=== PATIENT | male | born 1955 | race Caucasian/White ===

== ENCOUNTER 2017-01-03 08:26 | Inpatient (IN) ==
--- NOTE | 2017-01-03 08:30 | Emergency Department Note ---
Disposition Clinical Impression: Overdose, Hyperglycemia, Suicidal ideation, Acute kidney injury Disposition: Admitted As Inpatient Condition: Fair General Adult HPI - General Chief complaint: ED Overdose Stated complaint: Overdose Time Seen by Provider: 01/03/17 08:28 - Related Data Home Medications Medication Instructions Recorded Confirmed Aspirin [Lo-Dose Aspirin EC] 81 mg PO DAILY 01/03/17 01/03/17 Multivitamin [One Daily Essential] 1 tab PO DAILY 01/03/17 01/03/17 Allergies Allergy/AdvReac Type Severity Reaction Status Date / Time esomeprazole [From Nexium] Allergy Rash Verified 01/03/17 09:30 Cyclobenzaprine AdvReac Hypotension Verified 01/03/17 09:30 [From Flexeril] Course Vital Signs Temperature 97.9 F 01/03/17 08:29 Pulse Rate 121 01/03/17 08:29 Respiratory Rate 16 01/03/17 08:29 Blood Pressure 123/77 01/03/17 08:29 O2 Sat by Pulse Oximetry 95 01/03/17 08:29 Temperature 98.3 F 01/03/17 17:30 Pulse Rate 109 01/03/17 17:30 Respiratory Rate 16 01/03/17 17:30 Blood Pressure 135/92 01/03/17 17:30 O2 Sat by Pulse Oximetry 94 01/03/17 17:30 Oxygen Delivery Oxygen Delivery Room Air Medical Decision Making - Lab Data Result diagrams: 01/03/17 08:47 01/03/17 08:48 Lab Results 01/03/17 01/03/17 01/03/17 Range/Units 08:47 08:47 08:48 WBC 12.9 H (4.3-11.1) K/mcL RBC 6.26 H (4.19-5.50) M/mcL Hgb 15.3 (12.9-16.9) g/dL Hct 47.1 (37.5-50.1) % MCV 75.2 L (83.0-100.0) fL MCH 24.4 L (28.0-33.3) pg MCHC 32.5 (31.6-35.5) g/dL RDW 14.8 H (11.5-14.5) % Plt Count 312 (140-400) K/mcL MPV 8.7 L (9.4-12.4) fL Immature Gran % 0.5 (0-4) % Seg Neutrophils % 79.9 % Lymphocytes % 11.8 % Monocytes % 7.3 % Eosinophils % 0.2 % Basophils % 0.3 % Neutrophils # 10.3 H (1.6-8.9) K/mcL Lymphocytes # 1.5 (0.6-4.6) K/mcL Monocytes # 0.9 (0.0-1.3) K/mcL Eosinophils # 0.0 (0.0-0.6) K/mcL Basophils # 0.0 (0.0-0.2) K/mcL VBG pH (7.32-7.42) pH Units VBG pCO2 (41-51) mmHg VBG pO2 (25-40) mmHg VBG HCO3 (21-27) mEq/L Sodium 131 L (136-145) mEq/L Potassium 3.6 (3.5-4.5) mEq/L Chloride 97 L (98-109) mEq/L Carbon Dioxide 17 L (19-29) mEq/L BUN 11 (8-26) mg/dL Creatinine 1.37 H (0.72-1.25) mg/dL Est GFR ( Amer) > 60 (> 60) Est GFR (Non-Af Amer) 52 L (> 60) BUN/Creatinine Ratio 8 (6-26) Glucose 428 H (70-99) mg/dL Est Mean Plasma Glucose 292 mg/dl Hemoglobin A1c 11.8 H ( - 5.6) % Calculated Osmolality 290 (280-300) Calcium 9.4 (8.6-10.8) mg/dL Total Bilirubin 1.1 (0.2-1.2) mg/dL Direct Bilirubin 0.5 (0.0-0.5) mg/dL Indirect Bilirubin 0.6 (0.0-1.2) mg/dL AST 43 H (5-34) Units/L ALT 60 H (0-55) Units/L Alkaline Phosphatase 98 (38-126) Units/L Serum Total Protein 7.7 (6.0-8.3) g/dL Albumin 3.5 (3.5-5.0) g/dL Globulin 4.2 H (2.4-3.5) g/dL Albumin/Globulin Ratio 0.8 L (1.1-2.2) Beta-Hydroxybutyric Acd (0.02-0.27) mmol/L Salicylates < 5.0 L (15-30) mg/dL Urine Opiates Screen (Lpvwzm=459) ng/mL Acetaminophen < 1.0 L (10-30) mcg/mL Ur Barbiturates Screen (Riujlb=204) ng/mL Ur Phencyclidine Scrn (Cutoff=25) ng/mL Ur Amphetamines Screen (Qziffa=9706) ng/mL U Benzodiazepines Scrn (Dlcakj=616) ng/mL Urine Cocaine Screen (Cutoff= 300) ng/mL U Marijuana (THC) Screen (Cutoff = 50) ng/mL Ethyl Alcohol < 10 (0-10) mg/dL 01/03/17 01/03/17 01/03/17 Range/Units 09:23 09:27 09:27 WBC (4.3-11.1) K/mcL RBC (4.19-5.50) M/mcL Hgb (12.9-16.9) g/dL Hct (37.5-50.1) % MCV (83.0-100.0) fL MCH (28.0-33.3) pg MCHC (31.6-35.5) g/dL RDW (11.5-14.5) % Plt Count (140-400) K/mcL MPV (9.4-12.4) fL Immature Gran % (0-4) % Seg Neutrophils % % Lymphocytes % % Monocytes % % Eosinophils % % Basophils % % Neutrophils # (1.6-8.9) K/mcL Lymphocytes # (0.6-4.6) K/mcL Monocytes # (0.0-1.3) K/mcL Eosinophils # (0.0-0.6) K/mcL Basophils # (0.0-0.2) K/mcL VBG pH 7.34 (7.32-7.42) pH Units VBG pCO2 35 L (41-51) mmHg VBG pO2 38 (25-40) mmHg VBG HCO3 18.9 L (21-27) mEq/L Sodium (136-145) mEq/L Potassium (3.5-4.5) mEq/L Chloride (98-109) mEq/L Carbon Dioxide (19-29) mEq/L BUN (8-26) mg/dL Creatinine (0.72-1.25) mg/dL Est GFR ( Amer) (> 60) Est GFR (Non-Af Amer) (> 60) BUN/Creatinine Ratio (6-26) Glucose (70-99) mg/dL Est Mean Plasma Glucose mg/dl Hemoglobin A1c ( - 5.6) % Calculated Osmolality (280-300) Calcium (8.6-10.8) mg/dL Total Bilirubin (0.2-1.2) mg/dL Direct Bilirubin (0.0-0.5) mg/dL Indirect Bilirubin (0.0-1.2) mg/dL AST (5-34) Units/L ALT (0-55) Units/L Alkaline Phosphatase (38-126) Units/L Serum Total Protein (6.0-8.3) g/dL Albumin (3.5-5.0) g/dL Globulin (2.4-3.5) g/dL Albumin/Globulin Ratio (1.1-2.2) Beta-Hydroxybutyric Acd 1.17 H (0.02-0.27) mmol/L Salicylates (15-30) mg/dL Urine Opiates Screen Negative (Fsatap=805) ng/mL Acetaminophen (10-30) mcg/mL Ur Barbiturates Screen Negative (Hjzavj=107) ng/mL Ur Phencyclidine Scrn Negative (Cutoff=25) ng/mL Ur Amphetamines Screen Negative (Eddmun=2790) ng/mL U Benzodiazepines Scrn Negative (Otjken=270) ng/mL Urine Cocaine Screen Negative (Cutoff= 300) ng/mL U Marijuana (THC) Screen Negative (Cutoff = 50) ng/mL Ethyl Alcohol (0-10) mg/dL Attestation Statement - Attestation Attestation: I examined this patient and my medical decision-making was reviewed with the ALL AROUND GEAR MACHINE OPERATOR/PA/Advanced Practice Nurse/Resident Physician. I agree with the documented findings, disposition and treatment plan as described except to the extent set forth below. Cvfw-qj-rati time provided Patient presents via EMS with suicidal ideation. Several hours ago he swallowed an unknown quantity of trazodone and possibly 30 tablets of Plavix. This was done in a suicide attempt. He states prior to this he has not taken any medications for a year. He appears sleepy but he is awake and able to answer questions appropriately. He is a guarded historian
--- NOTE | 2017-01-03 08:42 | Emergency Department Note ---
Overdose - Medical Records Medical records reviewed: Yes I reviewed the patient's medical records. - Lab Data Lab results reviewed: Yes I reviewed the patient's lab results. Result diagrams: 01/03/17 08:47 01/03/17 08:48 Lab Results 01/03/17 01/03/17 01/03/17 Range/Units 08:47 08:48 09:23 WBC 12.9 H (4.3-11.1) K/mcL RBC 6.26 H (4.19-5.50) M/mcL Hgb 15.3 (12.9-16.9) g/dL Hct 47.1 (37.5-50.1) % MCV 75.2 L (83.0-100.0) fL MCH 24.4 L (28.0-33.3) pg MCHC 32.5 (31.6-35.5) g/dL RDW 14.8 H (11.5-14.5) % Plt Count 312 (140-400) K/mcL MPV 8.7 L (9.4-12.4) fL Immature Gran % 0.5 (0-4) % Seg Neutrophils % 79.9 % Lymphocytes % 11.8 % Monocytes % 7.3 % Eosinophils % 0.2 % Basophils % 0.3 % Neutrophils # 10.3 H (1.6-8.9) K/mcL Lymphocytes # 1.5 (0.6-4.6) K/mcL Monocytes # 0.9 (0.0-1.3) K/mcL Eosinophils # 0.0 (0.0-0.6) K/mcL Basophils # 0.0 (0.0-0.2) K/mcL VBG pH (7.32-7.42) pH Units VBG pCO2 (41-51) mmHg VBG pO2 (25-40) mmHg VBG HCO3 (21-27) mEq/L Sodium 131 L (136-145) mEq/L Potassium 3.6 (3.5-4.5) mEq/L Chloride 97 L (98-109) mEq/L Carbon Dioxide 17 L (19-29) mEq/L BUN 11 (8-26) mg/dL Creatinine 1.37 H (0.72-1.25) mg/dL Est GFR ( Amer) > 60 (> 60) Est GFR (Non-Af Amer) 52 L (> 60) BUN/Creatinine Ratio 8 (6-26) Glucose 428 H (70-99) mg/dL Calculated Osmolality 290 (280-300) Calcium 9.4 (8.6-10.8) mg/dL Total Bilirubin 1.1 (0.2-1.2) mg/dL Direct Bilirubin 0.5 (0.0-0.5) mg/dL Indirect Bilirubin 0.6 (0.0-1.2) mg/dL AST 43 H (5-34) Units/L ALT 60 H (0-55) Units/L Alkaline Phosphatase 98 (38-126) Units/L Serum Total Protein 7.7 (6.0-8.3) g/dL Albumin 3.5 (3.5-5.0) g/dL Globulin 4.2 H (2.4-3.5) g/dL Albumin/Globulin Ratio 0.8 L (1.1-2.2) Beta-Hydroxybutyric Acd (0.02-0.27) mmol/L Salicylates < 5.0 L (15-30) mg/dL Urine Opiates Screen Negative (Atpahs=832) ng/mL Acetaminophen < 1.0 L (10-30) mcg/mL Ur Barbiturates Screen Negative (Ugaxuf=056) ng/mL Ur Phencyclidine Scrn Negative (Cutoff=25) ng/mL Ur Amphetamines Screen Negative (Jtuiho=4709) ng/mL U Benzodiazepines Scrn Negative (Ucbdki=897) ng/mL Urine Cocaine Screen Negative (Cutoff= 300) ng/mL U Marijuana (THC) Screen Negative (Cutoff = 50) ng/mL Ethyl Alcohol < 10 (0-10) mg/dL 01/03/17 01/03/17 Range/Units 09:27 09:27 WBC (4.3-11.1) K/mcL RBC (4.19-5.50) M/mcL Hgb (12.9-16.9) g/dL Hct (37.5-50.1) % MCV (83.0-100.0) fL MCH (28.0-33.3) pg MCHC (31.6-35.5) g/dL RDW (11.5-14.5) % Plt Count (140-400) K/mcL MPV (9.4-12.4) fL Immature Gran % (0-4) % Seg Neutrophils % % Lymphocytes % % Monocytes % % Eosinophils % % Basophils % % Neutrophils # (1.6-8.9) K/mcL Lymphocytes # (0.6-4.6) K/mcL Monocytes # (0.0-1.3) K/mcL Eosinophils # (0.0-0.6) K/mcL Basophils # (0.0-0.2) K/mcL VBG pH 7.34 (7.32-7.42) pH Units VBG pCO2 35 L (41-51) mmHg VBG pO2 38 (25-40) mmHg VBG HCO3 18.9 L (21-27) mEq/L Sodium (136-145) mEq/L Potassium (3.5-4.5) mEq/L Chloride (98-109) mEq/L Carbon Dioxide (19-29) mEq/L BUN (8-26) mg/dL Creatinine (0.72-1.25) mg/dL Est GFR ( Amer) (> 60) Est GFR (Non-Af Amer) (> 60) BUN/Creatinine Ratio (6-26) Glucose (70-99) mg/dL Calculated Osmolality (280-300) Calcium (8.6-10.8) mg/dL Total Bilirubin (0.2-1.2) mg/dL Direct Bilirubin (0.0-0.5) mg/dL Indirect Bilirubin (0.0-1.2) mg/dL AST (5-34) Units/L ALT (0-55) Units/L Alkaline Phosphatase (38-126) Units/L Serum Total Protein (6.0-8.3) g/dL Albumin (3.5-5.0) g/dL Globulin (2.4-3.5) g/dL Albumin/Globulin Ratio (1.1-2.2) Beta-Hydroxybutyric Acd 1.17 H (0.02-0.27) mmol/L Salicylates (15-30) mg/dL Urine Opiates Screen (Eiyezs=970) ng/mL Acetaminophen (10-30) mcg/mL Ur Barbiturates Screen (Byrrws=824) ng/mL Ur Phencyclidine Scrn (Cutoff=25) ng/mL Ur Amphetamines Screen (Zedmcq=3190) ng/mL U Benzodiazepines Scrn (Mmtiek=021) ng/mL Urine Cocaine Screen (Cutoff= 300) ng/mL U Marijuana (THC) Screen (Cutoff = 50) ng/mL Ethyl Alcohol (0-10) mg/dL - Radiology Data Radiology results reviewed: Yes I reviewed the patient's radiology results. - EKG Data EKG attestation: Yes I reviewed and interpreted this EKG. EKG results narrative: Sinus tachycardia rate 121 NE 159 QRS 90 QT/QTC 332/404. ST segment depression in the inferior and lateral leads. Study compared to previous dated 07/16/14 Overdose HPI - General Chief Complaint: ED Overdose Stated Complaint: Overdose Time Seen by Provider: 01/03/17 08:28 Source: patient, EMS Mode of arrival: EMS Limitations: no limitations Nursing Notes Reviewed: Yes Vital Signs Reviewed: Yes - History of Present Illness HPI Narrative: Patient intentionally ingested "an entire bottle" of 75 mg Plavix tabs several hours ago. He also ingested an unknown amount of trazodone. He states he has felt depressed "all my life." He felt suicidal. He states he fell when calling EMS but denies traumatic injury. His only complaint at the time of presentation is he feels "funny on my left side." He denies headache, neck pain , chest pain, traumatic injury, focal weakness Pt Subjective Complaint: intentional overdose Onset (ago): hour(s) Intent: suicide attempt Associated symptoms: depression Treatments Prior to Arrival: none - Related Data Home Medications Medication Instructions Recorded Confirmed Aspirin [Lo-Dose Aspirin EC] 81 mg PO DAILY 01/03/17 01/03/17 Multivitamin [One Daily Essential] 1 tab PO DAILY 01/03/17 01/03/17 Allergies Allergy/AdvReac Type Severity Reaction Status Date / Time esomeprazole [From Nexium] Allergy Rash Verified 01/03/17 09:30 Cyclobenzaprine AdvReac Hypotension Verified 01/03/17 09:30 [From Flexeril] All systems ED: reviewed and negative except as stated. Constitutional: Reports: as per HPI Eyes: Reports: as per HPI ENT ED: Reports: other (Painful, swollen area to his left posterior neck over the past several days) Cardiovascular: Reports: as per HPI Respiratory: Reports: as per HPI Gastrointestinal: Reports: as per HPI Genitourinary: Reports: as per HPI Musculoskeletal: Reports: as per HPI Integumentary: Reports: breast mass Neurological: Reports: as per HPI Psychiatric: Reports: depression, suicidal thoughts Endocrine: Reports: as per HPI Hematological/Lymphatic: Reports: as per HPI Allergic/Immunologic: Reports: as per HPI Past Medical History - Past Medical History Source: patient Medical history: Reports: asthma, myocardial infarction Psychiatric history: Reports: depression, schizophrenia - Social History Smoking Status: Never smoker Smokeless Tobacco Status: No Alcohol use: Reports: rarely Drug use: Reports: none Physical Exam Sleepy but alert. Answers questions appropriately. Follows commands. Pants soiled with feces - General Limitations: no limitations General appearance: appears intoxicated, lethargic, obese - Head Head exam: atraumatic - Eye Eye exam: Present: normal appearance, PERRL - ENT ENT exam: normal exam, other (Left tympanic membrane obscured by cerumen) - Neck Neck exam: Present: full ROM, lymphadenopathy (Swollen, tender, non- erythematous lesions to his left posterior atlantooccipital junction.) - Chest Chest inspection: Present: normal inspection, symmetric chest wall rise - Respiratory Respiratory exam: Present: normal lung sounds bilaterally - Cardiovascular Cardiovascular exam: Present: tachycardia, normal heart sounds - Abdominal Exam Abdominal exam: Present: soft, Non-Tender - Rectal Exam Rectal exam: Present: deferred - Extremities Exam Extremities exam: Present: normal inspection - Neurological Exam Neurological exam: Present: alert, oriented X3, CN II-XII intact - Psychiatric Psychiatric exam: Present: normal mood, flat affect - Skin Skin exam: Present: warm, dry, intact Course Course Narrative: Patient presents with an intentional overdose of Plavix and trazodone. The exact number of pills are uncertain. He states he was suicidal. He is tachycardic on presentation and slightly sleepy but protecting his airway. He appears in no acute distress. Medical clearance evaluation initiated. We will observe the patient on the cardiac telemetry monitoring - Reevaluation(s) Reevaluation #1: Patient able to stand with assistance. Reevaluation #2: I have elected to CT the patient's head. He overdosed on Plavix and he fell. He is an unreliable historian. He states he felt "wobbly" on his feet when he stood up Reevaluation #3: I will not be able to clear the patient medically for behavioral evaluation. I will request admission to the medicine service for further observation and evaluation. He will require glycemic control and sobriety. - Consultations Consultation #1: Call placed to poison control center at 8:40. They recommend supportive measures Vital Signs Temperature 97.9 F 01/03/17 08:29 Pulse Rate 121 01/03/17 08:29 Respiratory Rate 16 01/03/17 08:29 Blood Pressure 123/77 01/03/17 08:29 O2 Sat by Pulse Oximetry 95 01/03/17 08:29 Temperature 97.9 F 01/03/17 08:29 Pulse Rate 128 01/03/17 09:26 Respiratory Rate 18 01/03/17 09:26 Blood Pressure 105/68 01/03/17 09:26 O2 Sat by Pulse Oximetry 98 01/03/17 09:26 Oxygen Delivery Oxygen Delivery Room Air Disposition Clinical Impression: Hyperglycemia, Suicidal ideation, Acute kidney injury Overdose Qualifiers: Encounter type: initial encounter Injury intent: intentional self-harm Qualified Code(s): T50.902A - Poisoning by unspecified drugs, medicaments and biological substances, intentional self-harm, initial encounter Disposition: Admitted As Inpatient Condition: Fair Referrals: NO,PCP [Primary Care Provider] - Forms: ED Satisfaction Letter Time of Disposition: 09:38
[2017-01-03 08:54] LABS: Basophils % 0.3 %; Eosinophils % 0.2 %; Hematocrit 47.1 % (37.5-50.1); Hemoglobin 15.3 g/dL (12.9-16.9); Immature Granulocytes % 0.5 % (0-4); Lymphocytes # 1.5 K/mcL (0.6-4.6); Lymphocytes % 11.8 %; Mean Corpuscular HGB Conc 32.5 g/dL (31.6-35.5); Mean Corpuscular Hemoglobin 24.4 pg (28.0-33.3); Mean Corpuscular Volume 75.2 fL (83.0-100.0); Mean Platelet Volume 8.7 fL (9.4-12.4); Monocytes # 0.9 K/mcL (0.0-1.3); Monocytes % 7.3 %; Neutrophils # 10.3 K/mcL (1.6-8.9); Platelet Count 312 K/mcL (140-400); Red Blood Count 6.26 M/mcL (4.19-5.50); Red Cell Distribution Width 14.8 % (11.5-14.5); Segmented Neutrophils % 79.9 %
[2017-01-03 09:11] LABS: Alanine Aminotransferase 60 Units/L (0-55); Albumin 3.5 g/dL (3.5-5.0); Albumin/Globulin Ratio 0.8 (1.1-2.2); Alkaline Phosphatase 98 Units/L (38-126); Aspartate Amino Transferase 43 Units/L (5-34); BUN/Creatinine Ratio 8 (6-26); Bilirubin,Direct 0.5 mg/dL (0.0-0.5); Bilirubin,Indirect 0.6 mg/dL (0.0-1.2); Bilirubin,Total 1.1 mg/dL (0.2-1.2); Blood Urea Nitrogen 11 mg/dL (8-26); Calcium 9.4 mg/dL (8.6-10.8); Carbon Dioxide 17 mEq/L (19-29); Chloride 97 mEq/L (98-109); Globulin 4.2 g/dL (2.4-3.5); Glucose 428 mg/dL (70-99); Osmolality,Calculated 290 (280-300); Potassium 3.6 mEq/L (3.5-4.5); Sodium 131 mEq/L (136-145); Total Protein 7.7 g/dL (6.0-8.3); eGFR For African Americans > 60 (> 60); eGFR For Non-African Americans 52 (> 60)
[2017-01-03 09:12] LABS: Acetaminophen < 1.0 mcg/mL (10-30); Ethanol < 10 mg/dL (0-10); Salicylate < 5.0 mg/dL (15-30)
[2017-01-03] MEDS ORDERED: 0.9 % Sodium Chloride 1,000 ML IVC ONE (09:13)
[2017-01-03 09:32] LABS: VBG HCO3 18.9 mEq/L (21-27); VBG PH 7.34 pH Units (7.32-7.42)
[2017-01-03 09:36] LABS: Amphetamine Screen,Urine Negative ng/mL (Cutoff=1000); Barbiturate Screen,Urine Negative ng/mL (Cutoff=200); Benzodiazepines Screen,Urine Negative ng/mL (Cutoff=200); Cannabinoid Screen,Urine Negative ng/mL (Cutoff = 50); Cocaine Screen,Urine Negative ng/mL (Cutoff= 300); Opiate Screen,Urine Negative ng/mL (Cutoff=300); Phencyclidine Screen,Urine Negative ng/mL (Cutoff=25)
[2017-01-03] MEDS ORDERED: Naloxone 0.4 MG/ML INJ IVP PRN (10:57)
[2017-01-03] MEDS ORDERED: Ondansetron 4 MG/2 ML VIAL IVP PRN (10:59)
--- NOTE | 2017-01-03 11:13 | Internal Med History&Physical ---
<Desire Lay - Last Filed: 01/03/17 13:51> Date of Encounter: 01/03/17 Time of Encounter: 11:13 Assessment and Plan (1) Overdose Current visit: Yes Status: Acute Patient admits to an ongoing history of depression and wanted to kill himself. He did take a unknown amount of trazodone and approximate 30 Plavix. Posterior control was notified which suggested supportive treatment. We will continue with IV fluids 2 we will monitor CBC and Chem-7 3 monitor for any bleeding 4 continuous cardiac monitoring as well as EKG for prolonged QTC 5 fall precautions Qualifiers: Encounter type: initial encounter Injury intent: intentional self-harm Qualified Code(s): T50.902A - Poisoning by unspecified drugs, medicaments and biological substances, intentional self-harm, initial encounter (2) Suicidal ideation Current visit: Yes Status: Acute [address] patient on suicide observation 2 consult psychiatry who will see patient tomorrow, once medically cleared transferred to (3) Acute kidney injury Current visit: Yes Status: Acute 1 patient's creatinine is 1.37 which is elevated from baseline which appears to be around 1-1.2. Suspect this is related to DKA-we will give IV fluids 2 continue to monitor creatinine and electrolytes 3 avoid nephrotoxins 4 monitor intake and output daily weights (4) Hyperglycemia Current visit: Yes Status: Acute 1 upon presentation patient's blood sugar was 428. Patient is not a past history of diabetes Anion Gap 12. Hydroxyzine 1.17, venous gas pH 7.34 we will obtain A1c 2 Accu-Cheks before meals and at bedtime we will started on basal insulin as well as sliding scale 3 consult log roller 4 diabetic diet (5) DVT prophylaxis Current visit: Yes Status: Acute 1 SCDs for now due to Plavix overdose Internal Medicine - H&P: HPI Chief complaint: Suicidal ideations Admitted From: Emergency Dept Plans for Post Hospital Care: Transfer Psych Facility History of present illness: Mr. Walters is a 61 year old male past medical history of hypertension CAD with stent placement depression and schizophrenia asthma. According to patient he is struggled with depression all of his life. He states for approximately 1 year is not taking any of his medications over the past few days he has been feeling increasingly depressed he decided he wanted to kill himself and he took unknown amount of trazodone at approximately 30 Plavix. He apparently called EMS and in the process he fell he denies hitting his head or any loss of consciousness. He was brought to the ER for further evaluation. According to ER records lab work did reveal some hyperglycemia glucose 428 as well as AK I creatinine 1.37. Patient's bicarbonate 17. Anion gap 23 ER physician did call poison control who advised supportive treatment. CT of head was negative for any intracranial abnormalities. EKG sinus tachycardia Patient was given IV fluids and he has been admitted for further workup and evaluation. Presently patient is sleeping is arousable to verbal stimuli oriented following simple commands. Cranial nerves II through XII intact. Heart sounds S1 and S2 with no rubs, murmurs or gallops noted lungs sounds clear abdomen soft and nontender. He is hemodynamically stable this time. Presently patient denies any suicidal thoughts. Patient states he does have past history of auditory hallucinations however he has not experienced any recently We will place patient on suicide observation will consult psychiatry. I reviewed this case with Dr. Inman who agrees with plan Past Med Surg Social Fam HX - Past Medical History Medical history: asthma, myocardial infarction Psychiatric history: depression, schizophrenia - Social History Smoking Status: Never smoker Smokeless Tobacco Status: No Alcohol use: rarely Drug use: none - Family History Mother Living Status: Cause of : Heart disease Father Living Status: Cause of : Heart disease Internal Medicine - H&P: Meds Aspirin [Lo-Dose Aspirin EC] 81 mg PO DAILY 01/03/17 [History] Multivitamin [One Daily Essential] 1 tab PO DAILY 01/03/17 [History] Allergies esomeprazole [From Nexium] Allergy (Verified 01/03/17 09:30) Rash Cyclobenzaprine [From Flexeril] Adverse Reaction (Verified 01/03/17 09:30) Hypotension All Systems PM: A 10-system review of systems was performed and is negative for pertinent findings except as documented above in the HPI. - Constitutional Constitutional: no chills, no fever(s), no night sweats - EENT Eyes: no change in vision, no discharge, no pain, no photophobia Nose, mouth and throat: no dysphagia, no nasal discharge, no neck pain, no sore throat - Cardiovascular Cardiovascular ROS IM: no chest pain, no diaphoresis, no dyspnea, no lightheadedness, no palpitations, no syncope - Respiratory Respiratory: dyspnea - Gastrointestinal Gastrointestinal: no abdominal pain, no diarrhea, no hematemesis, no hematochezia, no melena, no nausea, no vomiting - Musculoskeletal Musculoskeletal ROS IM: no numbness, no tingling - Integumentary Integumentary IM: no rash, no unusual bruising - Neurological Neurological ROS: no confusion, no convulsions, no focal weakness, no numbness, no tingling, no tremor(s) - Psychiatric Psychiatric: auditory hallucinations, depression - Constitutional Vitals: Temp Pulse Resp BP Pulse Ox 97.9 F 129 18 149/84 97 01/03/17 08:29 01/03/17 10:00 01/03/17 10:49 01/03/17 10:49 01/03/17 10:00 General appearance: Present: A&O X 3, answers questions appropriately - Head Head exam: Present: atraumatic, normocephalic - Eye Eye exam: Present: PERRL, conjuntiva pink, sclera anicteric Pupils: Present: PERRL - Neck Neck exam general surgery: Present: supple, trachea midline. Absent: lymphadenopathy - Respiratory Respiratory exam: Present: CTAB. Absent: accessory muscle use, rales, rhonchi, wheezes - Cardiovascular Cardiovascular exam: Present: RRR, +S1, +S2. Absent: diastolic murmur, gallop, rubs, systolic murmur - GI/Abdominal GI/Abdominal exam: Present: normal bowel sounds, soft, no peritoneal signs. Absent: distended, tenderness - Extremities Exam Extremities exam: Present: pedal edema, warm, radial pulses palpable and symetrical. Absent: calf tenderness, cyanotic - Neurological Exam Neurological exam: Present: CN II-XII intact, oriented X3, no focal deficits. Absent: pronater drift, facial droop, speech deficit - Skin Skin exam: Present: dry, intact Internal Med - H&P Results - Labs CBC & Chem 7: 01/03/17 08:47 01/03/17 08:48 - EKG Data EKG shows normal: sinus rhythm Rate: tachycardia - Diagnostic Studies CT scan - head Additional comments: Head CT 01/03/17 09:11 IMPRESSION: No acute intracranial abnormality. D/ / Shon Schultz MD / Shon Schultz MD Interpreting Provider: Shon Schultz MD <Richard Inman - Last Filed: 01/03/17 14:19> Date of Encounter: 01/03/17 Internal Medicine - H&P: HPI History of present illness: Mr. Walters is a 61 year old male All Systems PM: A 10-system review of systems was performed and is negative for pertinent findings except as documented above in the HPI. - Constitutional Vitals: Temp Pulse Resp BP Pulse Ox 98.2 F 117 18 136/82 95 01/03/17 13:27 01/03/17 13:27 01/03/17 13:27 01/03/17 13:27 01/03/17 13:27 Internal Med - H&P Results - Labs CBC & Chem 7: 01/03/17 08:47 01/03/17 08:48 - Attending Attestation I examined this patient and my medical decision-making was reviewed with Desire Lay. I agree with the documented findings, disposition and treatment plan as described except to the extent set forth below. Briefly, 61 yo male with suicide attempt using trazodone and plavix who presented to ER. On exam, CTAB and has tachycardia. Labs reviewed. New onset DM. Mild IMGUELANGEL. Admit to inpatient status. Expect to stay at least 2 midnights. High risk due to risk of lethal arrhythmias and risk of self-harm. IV fluids. One on one. Psych consult. Conservative management. Diabetic education. Start Lantus at 10 units for now. Once his renal function is better may start the patient on metformin and likely discharge on metformin. Sliding scale insulin. Diabetic diet. Monitor renal function and avoid nephrotoxic agents Telemetry. Likely transfer to inpatient psych facility once medically optimized. ANUSHKA Quezada
[2017-01-03] MEDS: 0.9 % Sodium Chloride 1,000 ML IVC SCH (11:20)
[2017-01-03] MEDS ORDERED: Dextrose Gel 15 GM PO PRN ×2 (11:54)
[2017-01-03] MEDS ORDERED: D5% in Water 1,000 ML IVC PRN (11:54)
[2017-01-03] MEDS ORDERED: *HR* Dextrose 50 % in Water (Syg) 50 ML SYRINGE IVP PRN (11:54)
[2017-01-03 14:29] LABS: Hemoglobin A1C 11.8 %
[2017-01-03] MEDS: Insulin LISPRO 300 UNITS/3 ML VIAL SQ SCH ×2 (16:28→20:37)
[2017-01-03] MEDS: Insulin DETEMIR 100 UNIT/ML X5UNITS SQ SCH (20:37)
[2017-01-04] MEDS: 0.9 % Sodium Chloride 1,000 ML IVC SCH (02:50)
[2017-01-04 04:01] LABS: Basophils % 0.3 %; Eosinophils # 0.1 K/mcL (0.0-0.6); Eosinophils % 0.4 %; Immature Granulocytes % 0.6 % (0-4); Lymphocytes # 1.8 K/mcL (0.6-4.6); Lymphocytes % 14.6 %; Mean Corpuscular HGB Conc 32.7 g/dL (31.6-35.5); Mean Corpuscular Hemoglobin 24.4 pg (28.0-33.3); Mean Corpuscular Volume 74.5 fL (83.0-100.0); Mean Platelet Volume 8.9 fL (9.4-12.4); Monocytes # 0.9 K/mcL (0.0-1.3); Monocytes % 6.9 %; Neutrophils # 9.6 K/mcL (1.6-8.9); Platelet Count 321 K/mcL (140-400); Segmented Neutrophils % 77.2 %
[2017-01-04 04:07] LABS: Hemoglobin 13.4 g/dL (12.9-16.9)
[2017-01-04 04:14] LABS: BUN/Creatinine Ratio 11 (6-26); Blood Urea Nitrogen 12 mg/dL (8-26); Calcium 8.5 mg/dL (8.6-10.8); Carbon Dioxide 22 mEq/L (19-29); Chloride 106 mEq/L (98-109); Glucose 276 mg/dL (70-99); Osmolality,Calculated 290 (280-300); Potassium 3.8 mEq/L (3.5-4.5); Sodium 135 mEq/L (136-145); eGFR For African Americans > 60 (> 60); eGFR For Non-African Americans > 60 (> 60)
[2017-01-04] MEDS: Insulin LISPRO 300 UNITS/3 ML VIAL SQ SCH ×4 (07:42→21:47)
[2017-01-04] MEDS ORDERED: 0.9 % Sodium Chloride 1,000 ML IVC ONE (08:05)
[2017-01-04] MEDS ORDERED: Ampicillin/Sulbactam 3,000 MG in 0.9 % Sodium Chloride Mini Bag 100 ML IVPB ONE (09:52)
--- NOTE | 2017-01-04 09:53 | Internal Med Progress Note ---
Date of Encounter: 01/04/17 Time of Encounter: 09:50 - Assessment and plan (1) Overdose Current Visit: Yes Status: Acute Assessment and plan: COntinue sitter, 1:1 observation Psych eval pending, follow recommendations Will possibly need discharge to psych after medically stable Qualifiers: Encounter type: initial encounter Injury intent: intentional self-harm Qualified Code(s): T50.902A - Poisoning by unspecified drugs, medicaments and biological substances, intentional self-harm, initial encounter (2) Suicidal ideation Current Visit: Yes Status: Acute Assessment and plan: As above (3) Acute kidney injury Current Visit: Yes Status: Acute Assessment and plan: IMproved GIve additional bolus for tachycardia (4) Furuncle Current Visit: Yes Status: Acute Assessment and plan: Start on Unasyn IV Send culture of drainage from his left neck Leukocytosis may be as a result of this Continue to monitor WBC Anticipate transfer to psych a.m (5) Depression Current Visit: Yes Status: Chronic Assessment and plan: As in suicidal ideation and overdose Psych is following Qualifiers: Depression Type: major depressive disorder Major depression recurrence: recurrent Active/Remission status: currently active Major depression episode severity: severe Psychotic features: without psychotic features Qualified Code(s): F33.2 - Major depressive disorder, recurrent severe without psychotic features - Subjective Interval history: Seen and evaluated at bedside Patient with depression being managed for suicidal attempt with drug overdose Patient complained of a lump on his left posterior neck region which began draining pus last night He also still has a white count with tachycardia, he is afebrile Will obtain wound culture , give IVF hydration and start on Unasyn for his neck furuncle His MIGUELANGEL has improved - Constitutional Vitals: Temp Pulse Resp BP Pulse Ox 98.0 F 110 16 131/81 95 01/04/17 09:13 01/04/17 09:13 01/04/17 09:13 01/04/17 09:13 01/04/17 09:13 General appearance: Present: A&O X 3, morbidly obese, pleasant, no acute distress, answers questions appropriately - Head Additional comments: Left posterior neck region with ~3X3cm swelling, surrounding redness, firm, with punctum draining pus - Eye Eye exam: Present: PERRL, conjuntiva pink, sclera anicteric Pupils: Present: PERRL - ENT ENT exam: Present: mucous membranes moist - Neck Neck exam general surgery: Present: supple, trachea midline. Absent: lymphadenopathy Additional comments: Furuncle on posterior L neck region - Respiratory Respiratory exam: Present: CTAB. Absent: accessory muscle use, rales, rhonchi, wheezes - Cardiovascular Cardiovascular exam: Present: RRR, +S1, +S2. Absent: diastolic murmur, gallop, rubs, systolic murmur - GI/Abdominal GI/Abdominal exam: Present: normal bowel sounds, soft, no peritoneal signs. Absent: distended, tenderness - Extremities Exam Extremities exam: Present: warm, radial pulses palpable and symetrical. Absent : calf tenderness, cyanotic, pedal edema Additional comments: Chronic venous stasis changes - Neurological Exam Neurological exam: Present: alert, CN II-XII intact, oriented X3, no focal deficits. Absent: pronater drift, facial droop, speech deficit - Skin Skin exam: Present: dry, intact Internal Medicine: Result - Labs CBC & Chem 7: 01/04/17 03:35 01/04/17 03:35 Labs: Short CBC 01/04/17 Range/Units 03:35 WBC 12.4 H (4.3-11.1) K/mcL Hgb 13.4 D (12.9-16.9) g/dL Hct 41.0 (37.5-50.1) % Plt Count 321 (140-400) K/mcL Neutrophils # 9.6 H (1.6-8.9) K/mcL BMP 01/04/17 03:35 Sodium 135 L Potassium 3.8 Chloride 106 Carbon Dioxide 22 BUN 12 Creatinine 1.10 Glucose 276 H Calcium 8.5 L Cardiac Enzymes 01/03/17 01/03/17 Range/Units 14:07 20:18 Troponin I 0.03 0.05 H* (0-0.03) ng/mL Consult Discharge Plan - Plan Referrals: NO,PCP [Primary Care Provider] -
--- NOTE | 2017-01-04 11:32 | Consult Note ---
Date of Encounter: 01/04/17 Time of Encounter: 11:30 Assessment & Recommendation (1) MDD (major depressive disorder), recurrent severe, without psychosis Current visit: Yes Status: Acute Assessment & Recommendation: Patient is severely depressed and hopeless and verbalizing suicidal ideations. . At this point patient is going through some testing for an abscess which is draining and is sent for culture. Once the patient is medically stable he should be transferred to . I also recommend continuing with the sitter. History of Present Illness Patient: new to practice Requesting Physician: Estrada Desai MD Reason for consult: Suicide attempt History of present illness: Mr. Walters is a 61 year old male who was hospitalized on [facility] floor after he attempted suicide by taking his blood pressure medication and trazodone. A psych consult was given to assess patient for depression and suicidality. Upon interviewing today patient reported an extensive history of depression. He reported that he experiences the first part of his depression when he was 48- year-old and attempted suicide by going in the [facility] and spending 9 days before he collapsed and was found by the compliance investigator and taken to the hospital and receive treatment. Since then patient reported that he has been getting outpatient treatment regularly up until last year but due to some changes in the clinic to schedule he missed his appointment and could not get back into seeing the doctor. He ran out of his medications and started to notice a relapse of depression. Patient reported that slowly and gradually over the course of last 6-10 months the depression has gotten worse. He reported that he has been noticing low mood and anhedonia hopeless helpless feelings crying and weeping spells and recurrent suicidal thoughts and hopeless feelings. Patient reported that in addition to the depressive symptoms he is also noticing some paranoia and fear. He did experience some psychosis with his depression in the past as well. Patient reported that his depression got to a point where he started thinking about ending his life and finally decided to overdose and kill himself. He continued to express extreme hopeless helpless feelings along with suicidal ideation and does not feel safe. CC: Estrada Desai MD Past Med Surg Social Fam HX - Past Medical History Medical history: asthma, myocardial infarction - Past Psychiatric History Psychiatric history: Reports: depression, prior suicide attempt, previous psychiatric hospitalization Past psychiatric history details: Patient has 1 prior psychiatric hospitalization 13 years ago as a result of severe depression and paranoia and suicide attempt. He was receiving treatment at the [facility] up until last year. He has been off all his psychiatric medication and is not seeing any psychiatrist since last year. Family psychiatric history: No Family History of Suicide: None - Social History Smoking Status: Never smoker Smokeless Tobacco Status: No Alcohol use: rarely Drug use: none Occupational status: disabled Current living situation: Home Activity Level: Independent ambulation Recent Out of Country Travel Within the Last 8 Weeks: No Exposure or Possible Exposure to Illness During Travel: No Additional social history: The patient is single. He is never . He has no children. He has 2 sisters whom he has good close relationships with. 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 He has been on disability since last 13 years. He denies any legal issues. - Family History Mother History Unknown: Yes Adopted: [place]: Layne Walters Family Member Ethnicity: Non- Living Status: Age at : 58 Cause of : Heart disease Hx Family Cardiac Disorders: No Hx Family Respiratory Disorders: No Hx Family Cancer: No Hx Family GI Disorders: No Hx Family Genitourinary Disorders: No Hx Family Endocrine Disorder: No Hx Family Musculoskeletal Disorders: No Hx Family Neuromuscular Disorders: No Hx Family Neurologic Disorders: No Hx Family HEENT Disorders: No Hx Family Autoimmune Disorders: No Hx Family Reproductive Disorders: No Hx Family Psychosocial Disorders: No Hx Family Medical Disorders: No Father History Unknown: Yes Name: Devante Walters Family Member Ethnicity: Non- Living Status: Age at : 70 Cause of : Heart disease Hx Family Cardiac Disorders: Yes Hx Family Respiratory Disorders: Yes Hx Family Cancer: No Hx Family GI Disorders: No Hx Family Genitourinary Disorders: No Hx Family Endocrine Disorder: No Hx Family Musculoskeletal Disorders: No Hx Family Neuromuscular Disorders: No Hx Family Neurologic Disorders: No Hx Family HEENT Disorders: No Hx Family Autoimmune Disorders: No Hx Family Reproductive Disorders: No Hx Family Psychosocial Disorders: No Hx Family Medical Disorders: No (pt not sure about family medical problems) Medications & Allergies Aspirin [Lo-Dose Aspirin EC] 81 mg PO DAILY 01/03/17 [History] Multivitamin [One Daily Essential] 1 tab PO DAILY 01/03/17 [History] Allergies esomeprazole [From Nexium] Allergy (Verified 01/03/17 09:30) Rash Cyclobenzaprine [From Flexeril] Adverse Reaction (Verified 01/03/17 09:30) Hypotension Review of Systems Psychiatric: Reports: depression, suicidal ideation, anhedonia, difficulty concentrating, hopelessness Mental Status Exam Patient orientation: Yes Person, Yes Time, Yes Place Level of alertness: Alert Patient appearance: Unkempt, Disheveled, Obese Behavior: anxious, tearful, withdrawn Psychomotor activity: Slowed Eye contact: Maintains Eye Contact Mood description: Depressed, Anxious Affect description: congruent with mood, tearful, dysphoric, anxious Speech pattern: Normal rate, Normal rhythm, Normal tone Speech volume: Soft/Quiet Thought process: Linear, Goal Oriented Thought content: Yes Suicidal ideation, Yes Ideas of reference Perceptual disturbances: No Auditory hallucinations, No Visual hallucinations Attention span: Capable of Focused Attention Memory description: Grossly Intact Patient reliability: Reliable Historian Intelligence estimate: Average Judgment: Limited Insight: Partial Results - Vital Signs Vital signs: Temp Pulse Resp BP Pulse Ox 98.1 F 104 14 161/83 96 01/04/17 11:03 01/04/17 11:03 01/04/17 11:03 01/04/17 11:03 01/04/17 11:03 - Labs Labs: Laboratory Last Values WBC 12.4 K/mcL (4.3-11.1) H 01/04/17 03:35 RBC 5.50 M/mcL (4.19-5.50) 01/04/17 03:35 Hgb 13.4 g/dL (12.9-16.9) D 01/04/17 03:35 Hct 41.0 % (37.5-50.1) 01/04/17 03:35 MCV 74.5 fL (83.0-100.0) L 01/04/17 03:35 MCH 24.4 pg (28.0-33.3) L 01/04/17 03:35 MCHC 32.7 g/dL (31.6-35.5) 01/04/17 03:35 RDW 15.0 % (11.5-14.5) H 01/04/17 03:35 Plt Count 321 K/mcL (140-400) 01/04/17 03:35 MPV 8.9 fL (9.4-12.4) L 01/04/17 03:35 Immature Gran % 0.6 % (0-4) 01/04/17 03:35 Seg Neutrophils % 77.2 % 01/04/17 03:35 Lymphocytes % 14.6 % 01/04/17 03:35 Monocytes % 6.9 % 01/04/17 03:35 Eosinophils % 0.4 % 01/04/17 03:35 Basophils % 0.3 % 01/04/17 03:35 Neutrophils # 9.6 K/mcL (1.6-8.9) H 01/04/17 03:35 Lymphocytes # 1.8 K/mcL (0.6-4.6) 01/04/17 03:35 Monocytes # 0.9 K/mcL (0.0-1.3) 01/04/17 03:35 Eosinophils # 0.1 K/mcL (0.0-0.6) 01/04/17 03:35 Basophils # 0.0 K/mcL (0.0-0.2) 01/04/17 03:35 VBG pH 7.34 pH Units (7.32-7.42) 01/03/17 09:27 VBG pCO2 35 mmHg (41-51) L 01/03/17 09:27 VBG pO2 38 mmHg (25-40) 01/03/17 09:27 VBG HCO3 18.9 mEq/L (21-27) L 01/03/17 09:27 Sodium 135 mEq/L (136-145) L 01/04/17 03:35 Potassium 3.8 mEq/L (3.5-4.5) 01/04/17 03:35 Chloride 106 mEq/L (98-109) 01/04/17 03:35 Carbon Dioxide 22 mEq/L (19-29) 01/04/17 03:35 BUN 12 mg/dL (8-26) 01/04/17 03:35 Creatinine 1.10 mg/dL (0.72-1.25) 01/04/17 03:35 Est GFR ( Amer) > 60 (> 60) 01/04/17 03:35 Est GFR (Non-Af Amer) > 60 (> 60) 01/04/17 03:35 BUN/Creatinine Ratio 11 (6-26) 01/04/17 03:35 Glucose 276 mg/dL (70-99) H 01/04/17 03:35 POC Glucose 282 (58-89) H 01/04/17 07:10 Est Mean Plasma Glucose 292 mg/dl 01/03/17 08:47 Hemoglobin A1c 11.8 % (-5.6) H 01/03/17 08:47 Calculated Osmolality 290 (280-300) 01/04/17 03:35 Calcium 8.5 mg/dL (8.6-10.8) L 01/04/17 03:35 Total Bilirubin 1.1 mg/dL (0.2-1.2) 01/03/17 08:48 Direct Bilirubin 0.5 mg/dL (0.0-0.5) 01/03/17 08:48 Indirect Bilirubin 0.6 mg/dL (0.0-1.2) 01/03/17 08:48 AST 43 Units/L (5-34) H 01/03/17 08:48 ALT 60 Units/L (0-55) H 01/03/17 08:48 Alkaline Phosphatase 98 Units/L (38-126) 01/03/17 08:48 Troponin I 0.05 ng/mL (0-0.03) H* 01/03/17 20:18 Serum Total Protein 7.7 g/dL (6.0-8.3) 01/03/17 08:48 Albumin 3.5 g/dL (3.5-5.0) 01/03/17 08:48 Globulin 4.2 g/dL (2.4-3.5) H 01/03/17 08:48 Albumin/Globulin Ratio 0.8 (1.1-2.2) L 01/03/17 08:48 Beta-Hydroxybutyric Acd 1.17 mmol/L (0.02-0.27) H 01/03/17 09:27 Salicylates < 5.0 mg/dL (15-30) L 01/03/17 08:48 Urine Opiates Screen Negative ng/mL (Vufazj=665) 01/03/17 09:23 Acetaminophen < 1.0 mcg/mL (10-30) L 01/03/17 08:48 Ur Barbiturates Screen Negative ng/mL (Efgjwg=689) 01/03/17 09:23 Ur Phencyclidine Scrn Negative ng/mL (Cutoff=25) 01/03/17 09:23 Ur Amphetamines Screen Negative ng/mL (Lnnqjh=3621) 01/03/17 09:23 U Benzodiazepines Scrn Negative ng/mL (Cjclpa=038) 01/03/17 09:23 Urine Cocaine Screen Negative ng/mL (Cutoff= 300) 01/03/17 09:23 U Marijuana (THC) Screen Negative ng/mL (Cutoff = 50) 01/03/17 09:23 Ethyl Alcohol < 10 mg/dL (0-10) 01/03/17 08:48 Consult Discharge Plan - Plan Referrals: NO,PCP [Primary Care Provider] -
[2017-01-04] MEDS: Ampicillin/Sulbactam 1,500 MG in 0.9 % Sodium Chloride Mini Bag 100 ML IVPB SCH ×2 (16:06→21:47)
[2017-01-04] MEDS: Insulin DETEMIR 100 UNIT/ML X5UNITS SQ SCH (21:47)
[2017-01-05] MEDS: Ampicillin/Sulbactam 1,500 MG in 0.9 % Sodium Chloride Mini Bag 100 ML IVPB SCH ×4 (03:17→21:51)
[2017-01-05] MEDS ORDERED: *HR* HYDROcodone/Acet 5/325 mg TABLET PO ONE (03:29)
[2017-01-05 05:13] LABS: Basophils # 0.1 K/mcL (0.0-0.2); Basophils % 0.4 %; Eosinophils # 0.2 K/mcL (0.0-0.6); Eosinophils % 1.4 %; Hematocrit 40.3 % (37.5-50.1); Immature Granulocytes % 0.7 % (0-4); Lymphocytes # 1.9 K/mcL (0.6-4.6); Mean Corpuscular HGB Conc 32.3 g/dL (31.6-35.5); Mean Corpuscular Hemoglobin 24.3 pg (28.0-33.3); Mean Corpuscular Volume 75.5 fL (83.0-100.0); Mean Platelet Volume 8.7 fL (9.4-12.4); Monocytes # 1.3 K/mcL (0.0-1.3); Monocytes % 9.6 %; Neutrophils # 9.9 K/mcL (1.6-8.9); Platelet Count 305 K/mcL (140-400); Red Blood Count 5.34 M/mcL (4.19-5.50); Red Cell Distribution Width 15.3 % (11.5-14.5); Segmented Neutrophils % 73.9 %
[2017-01-05 05:30] LABS: BUN/Creatinine Ratio 12 (6-26); Blood Urea Nitrogen 12 mg/dL (8-26); Calcium 8.5 mg/dL (8.6-10.8); Carbon Dioxide 19 mEq/L (19-29); Chloride 106 mEq/L (98-109); Glucose 231 mg/dL (70-99); Osmolality,Calculated 283 (280-300); Potassium 3.7 mEq/L (3.5-4.5); Sodium 133 mEq/L (136-145); eGFR For African Americans > 60 (> 60); eGFR For Non-African Americans > 60 (> 60)
--- NOTE | 2017-01-05 08:07 | Internal Med Progress Note ---
Date of Encounter: 01/05/17 Time of Encounter: 08:06 - Assessment and plan (1) Overdose Current Visit: Yes Status: Acute Assessment and plan: COntinue sitter, 1:1 observation Psych eval noted For discharge to psych after medically stable Qualifiers: Encounter type: initial encounter Injury intent: intentional self-harm Qualified Code(s): T50.902A - Poisoning by unspecified drugs, medicaments and biological substances, intentional self-harm, initial encounter (2) Suicidal ideation Current Visit: Yes Status: Acute Assessment and plan: As above (3) Acute kidney injury Current Visit: Yes Status: Resolved Assessment and plan: Resolved (4) Furuncle Current Visit: Yes Status: Acute Assessment and plan: Continue Unasyn IV Add doxycycline for MRSA coverage Follow wound culture Consult surgery for I and D (5) Depression Current Visit: Yes Status: Chronic Assessment and plan: As in suicidal ideation and overdose Psych is following Qualifiers: Depression Type: major depressive disorder Major depression recurrence: recurrent Active/Remission status: currently active Major depression episode severity: severe Psychotic features: without psychotic features Qualified Code(s): F33.2 - Major depressive disorder, recurrent severe without psychotic features (6) Diabetes mellitus Current Visit: Yes Status: Chronic Assessment and plan: Newly diagnosed, A1C >11 Continue insulin, add prandial insulin FS [facility] DM educator Counselled and educated at bedside about diagnoses, management and complications of DM Qualifiers: Diabetes mellitus type: type 2 Diabetes mellitus complication status: with hyperglycemia Diabetes mellitus fdc insulin use: without terminal gauger use Qualified Code(s): E11.65 - Type 2 diabetes mellitus with hyperglycemia (7) Hypertension Current Visit: Yes Status: Chronic Assessment and plan: Start on amlodipine, titrate prn Qualifiers: Hypertension type: essential hypertension Qualified Code(s): I10 - Essential (primary) hypertension (8) Morbid obesity with BMI of 40.0-44.9, adult Current Visit: Yes Status: Chronic Assessment and plan: Lifestyle modification - Subjective Interval history: Seen and evaluated at bedside Patient with depression being managed for abscess of posterior neck region, suicidal attempt with drug overdose Additional diagnoses in this admission includes Newly diagnosed DM with hyperglycemia, HTN (previously diagnosed, not complaint with medications) Patient complained of a lump on his left posterior neck region which began draining pus last night He also still has a white count with tachycardia, he is afebrile MIGUELANGEL has resolved - Constitutional Vitals: Temp Pulse Resp BP Pulse Ox 98.3 F 102 18 147/96 93 01/05/17 07:45 01/05/17 07:45 01/05/17 07:45 01/05/17 07:45 01/05/17 07:45 General appearance: Present: A&O X 3, morbidly obese, pleasant, no acute distress, answers questions appropriately - Head Head exam: Present: atraumatic, normocephalic - Eye Eye exam: Present: PERRL, conjuntiva pink, sclera anicteric Pupils: Present: PERRL - Neck Neck exam general surgery: Present: supple, trachea midline. Absent: lymphadenopathy Additional comments: Left posterior neck region with ~3X3cm swelling, surrounding redness, firm, with punctum draining pus - Respiratory Respiratory exam: Present: CTAB. Absent: accessory muscle use, rales, rhonchi, wheezes - Cardiovascular Cardiovascular exam: Present: RRR, +S1, +S2. Absent: diastolic murmur, gallop, rubs, systolic murmur - GI/Abdominal GI/Abdominal exam: Present: normal bowel sounds, soft, no peritoneal signs. Absent: distended, tenderness - Extremities Exam Extremities exam: Present: warm, radial pulses palpable and symetrical. Absent : calf tenderness, cyanotic, pedal edema - Neurological Exam Neurological exam: Present: alert, CN II-XII intact, oriented X3, no focal deficits. Absent: pronater drift, facial droop, speech deficit - Skin Skin exam: Present: dry, intact Internal Medicine: Result - Labs CBC & Chem 7: 01/05/17 04:50 01/05/17 04:50 Labs: Short CBC 01/05/17 Range/Units 04:50 WBC 13.4 H (4.3-11.1) K/mcL Hgb 13.0 (12.9-16.9) g/dL Hct 40.3 (37.5-50.1) % Plt Count 305 (140-400) K/mcL Neutrophils # 9.9 H (1.6-8.9) K/mcL BMP 01/05/17 04:50 Sodium 133 L Potassium 3.7 Chloride 106 Carbon Dioxide 19 BUN 12 Creatinine 0.97 Glucose 231 H Calcium 8.5 L Consult Discharge Plan - Plan Referrals: NO,PCP [Primary Care Provider] -
[2017-01-05] MEDS: amLODIPine 5 MG TABLET PO SCH (09:25)
[2017-01-05] MEDS: Insulin LISPRO 300 UNITS/3 ML VIAL SQ SCH ×7 (09:26→21:27)
[2017-01-05] MEDS: Doxycycline 100 MG CAPSULE PO SCH ×2 (15:26→21:50)
--- NOTE | 2017-01-05 16:33 | General Surgery Consult Note ---
Date of Encounter: 01/05/17 Time of Encounter: 16:15 Assessment and Plan (1) Furuncle Current Visit: Yes Status: Acute Cavity decompressed and flushed with 20ml of sterile saline A 1/4 inch iodoform wick was placed to keep the affected area open and draining IV antibiotics- Ampicillin Cultures- Gram Positive Cocci Will continue to follow and assess progress May need further Incision and Drainage if fails to progress- need to be cautious due to recent OD on plavix Supportive care History of Present Illness Consult date: 01/05/17 Reason for consult: other (neck abscess) Requesting physician: Estrada Desai History of present illness: Mr. Walters is a 61 year old male was admitted to the hospital after an attempted overdose. He does have an abscess noted to his posterior neck. He states that he noticed the area was tender a couple of days ago and then it started draining pus yesterday. The nurse reports that the area has drained a moderate amount of purulent drainage today. The area is very tender to touch. He has never had anything like this in the past. No fevers documented. We have been asked to see and evaluate the patient for abscess management. Past Med Surg Social Fam HX - Past Medical History Medical history: asthma, myocardial infarction Psychiatric history: depression, prior suicide attempt, previous psychiatric hospitalization - Social History Smoking Status: Never smoker Smokeless Tobacco Status: No Alcohol use: rarely Drug use: none - Family History Mother History Unknown: Yes Adopted: [place]: Layne Walters Family Member Ethnicity: Non- Living Status: Age at : 58 Cause of : Heart disease Hx Family Cardiac Disorders: No Hx Family Respiratory Disorders: No Hx Family Cancer: No Hx Family GI Disorders: No Hx Family Genitourinary Disorders: No Hx Family Endocrine Disorder: No Hx Family Musculoskeletal Disorders: No Hx Family Neuromuscular Disorders: No Hx Family Neurologic Disorders: No Hx Family HEENT Disorders: No Hx Family Autoimmune Disorders: No Hx Family Reproductive Disorders: No Hx Family Psychosocial Disorders: No Hx Family Medical Disorders: No Father History Unknown: Yes Name: Devante Walters Family Member Ethnicity: Non- Living Status: Age at : 70 Cause of : Heart disease Hx Family Cardiac Disorders: Yes Hx Family Respiratory Disorders: Yes Hx Family Cancer: No Hx Family GI Disorders: No Hx Family Genitourinary Disorders: No Hx Family Endocrine Disorder: No Hx Family Musculoskeletal Disorders: No Hx Family Neuromuscular Disorders: No Hx Family Neurologic Disorders: No Hx Family HEENT Disorders: No Hx Family Autoimmune Disorders: No Hx Family Reproductive Disorders: No Hx Family Psychosocial Disorders: No Hx Family Medical Disorders: No (pt not sure about family medical problems) Medications and Allergies Aspirin [Lo-Dose Aspirin EC] 81 mg PO DAILY 01/03/17 [History] Multivitamin [One Daily Essential] 1 tab PO DAILY 01/03/17 [History] Allergies esomeprazole [From Nexium] Allergy (Verified 01/03/17 09:30) Rash Cyclobenzaprine [From Flexeril] Adverse Reaction (Verified 01/03/17 09:30) Hypotension Review of Systems All systems PM: reviewed and no additional remarkable complaints except as stated (focused ROS as listed in the HPI) All systems PM: A 10-system review of systems was performed and is negative for pertinent findings except as documented above in the HPI. General Surgery Exam Initial Vital Signs Temp Pulse Resp BP Pulse Ox 97.9 F 121 16 123/77 95 01/03/17 08:29 01/03/17 08:29 01/03/17 08:29 01/03/17 08:29 01/03/17 08:29 - General physical appearance well developed, well nourished, no distress - Eyes normal ocular movement - ENT normal mucosa, atraumatic, normocephalic - Neck trachea midline, other (posterior neck with abscess noted, moderate surrounding erythema and induration, moderate amount of purulent drainage noted without odor , tender to evaluation) - Respiratory normal respiratory effort, clear to auscultation - Cardiovascular Cardiovascular exam: Present: RRR - Abdomen Abdomen general surgery: Present: bowel sounds present, soft, non tender - Integumentary Integumentary general surgery: Present: warm and dry - Neurologic Present: CN 2-12 grossly intact - Psychiatric Psychiatric general surgery: Present: appropriate, oriented to person, oriented to place, oriented to time, speech is normal, memory intact Exam Initial Vital Signs Temp Pulse Resp BP Pulse Ox 97.9 F 121 16 123/77 95 01/03/17 08:29 01/03/17 08:29 01/03/17 08:29 01/03/17 08:29 01/03/17 08:29 Results - Labs 01/05/17 04:50 01/05/17 04:50 Abnormal lab results WBC 13.4 K/mcL (4.3-11.1) H 01/05/17 04:50 MCV 75.5 fL (83.0-100.0) L 01/05/17 04:50 MCH 24.3 pg (28.0-33.3) L 01/05/17 04:50 RDW 15.3 % (11.5-14.5) H 01/05/17 04:50 MPV 8.7 fL (9.4-12.4) L 01/05/17 04:50 Neutrophils # 9.9 K/mcL (1.6-8.9) H 01/05/17 04:50 VBG pCO2 35 mmHg (41-51) L 01/03/17 09:27 VBG HCO3 18.9 mEq/L (21-27) L 01/03/17 09:27 Sodium 133 mEq/L (136-145) L 01/05/17 04:50 Glucose 231 mg/dL (70-99) H 01/05/17 04:50 POC Glucose 229 (58-89) H 01/05/17 11:01 Hemoglobin A1c 11.8 % (-5.6) H 01/03/17 08:47 Calcium 8.5 mg/dL (8.6-10.8) L 01/05/17 04:50 AST 43 Units/L (5-34) H 01/03/17 08:48 ALT 60 Units/L (0-55) H 01/03/17 08:48 Troponin I 0.05 ng/mL (0-0.03) H* 01/03/17 20:18 Globulin 4.2 g/dL (2.4-3.5) H 01/03/17 08:48 Albumin/Globulin Ratio 0.8 (1.1-2.2) L 01/03/17 08:48 Beta-Hydroxybutyric Acd 1.17 mmol/L (0.02-0.27) H 01/03/17 09:27 Salicylates < 5.0 mg/dL (15-30) L 01/03/17 08:48 Acetaminophen < 1.0 mcg/mL (10-30) L 01/03/17 08:48 Diabetes panel 01/05/17 Range/Units 04:50 Sodium 133 L (136-145) mEq/L Potassium 3.7 (3.5-4.5) mEq/L Chloride 106 (98-109) mEq/L Carbon Dioxide 19 (19-29) mEq/L BUN 12 (8-26) mg/dL Creatinine 0.97 (0.72-1.25) mg/dL Glucose 231 H (70-99) mg/dL Calcium 8.5 L (8.6-10.8) mg/dL Calcium panel 01/05/17 Range/Units 04:50 Calcium 8.5 L (8.6-10.8) mg/dL Pituitary panel 01/05/17 Range/Units 04:50 Sodium 133 L (136-145) mEq/L Potassium 3.7 (3.5-4.5) mEq/L Chloride 106 (98-109) mEq/L Carbon Dioxide 19 (19-29) mEq/L BUN 12 (8-26) mg/dL Creatinine 0.97 (0.72-1.25) mg/dL Glucose 231 H (70-99) mg/dL Calcium 8.5 L (8.6-10.8) mg/dL Adrenal panel 01/05/17 Range/Units 04:50 Sodium 133 L (136-145) mEq/L Potassium 3.7 (3.5-4.5) mEq/L Chloride 106 (98-109) mEq/L Carbon Dioxide 19 (19-29) mEq/L BUN 12 (8-26) mg/dL Creatinine 0.97 (0.72-1.25) mg/dL Glucose 231 H (70-99) mg/dL Calcium 8.5 L (8.6-10.8) mg/dL All other labs normal. Consult Discharge Plan - Plan Referrals: NO,PCP [Primary Care Provider] -
--- NOTE | 2017-01-05 16:48 | Electrocardiograph Report ---
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
[2017-01-05] MEDS: Insulin DETEMIR 100 UNIT/ML X5UNITS SQ SCH (21:50)
[2017-01-06] MEDS: Ampicillin/Sulbactam 1,500 MG in 0.9 % Sodium Chloride Mini Bag 100 ML IVPB SCH ×2 (04:13→13:32)
[2017-01-06 04:38] LABS: Basophils # 0.1 K/mcL (0.0-0.2); Basophils % 0.7 %; Eosinophils # 0.4 K/mcL (0.0-0.6); Eosinophils % 4.1 %; Hematocrit 38.9 % (37.5-50.1); Immature Granulocytes % 0.7 % (0-4); Lymphocytes # 1.9 K/mcL (0.6-4.6); Lymphocytes % 21.5 %; Mean Corpuscular HGB Conc 33.4 g/dL (31.6-35.5); Mean Corpuscular Hemoglobin 25.1 pg (28.0-33.3); Mean Corpuscular Volume 75.1 fL (83.0-100.0); Mean Platelet Volume 8.9 fL (9.4-12.4); Monocytes % 11.6 %; Neutrophils # 5.5 K/mcL (1.6-8.9); Platelet Count 316 K/mcL (140-400); Red Blood Count 5.18 M/mcL (4.19-5.50); Red Cell Distribution Width 15.3 % (11.5-14.5); Segmented Neutrophils % 61.4 %
[2017-01-06 04:51] LABS: BUN/Creatinine Ratio 11 (6-26); Blood Urea Nitrogen 9 mg/dL (8-26); Calcium 8.7 mg/dL (8.6-10.8); Carbon Dioxide 22 mEq/L (19-29); Chloride 107 mEq/L (98-109); Glucose 144 mg/dL (70-99); Osmolality,Calculated 283 (280-300); Potassium 3.5 mEq/L (3.5-4.5); Sodium 136 mEq/L (136-145); eGFR For African Americans > 60 (> 60); eGFR For Non-African Americans > 60 (> 60)
[2017-01-06 07:08] VITALS: BP 153/107
[2017-01-06] MEDS: Doxycycline 100 MG CAPSULE PO SCH (08:06)
[2017-01-06] MEDS: amLODIPine 5 MG TABLET PO SCH (08:06)
[2017-01-06] MEDS: Insulin LISPRO 300 UNITS/3 ML VIAL SQ SCH ×4 (08:07→13:27)
--- NOTE | 2017-01-06 11:43 | General Surgery Progress Note ---
Date of Encounter: 01/06/17 Time of Encounter: 11:00 - Assessment and Plan (1) Furuncle Current Visit: Yes Status: Acute Cavity decompressed and flushed with 20ml of sterile saline Transition to oral antibiotics Cultures- Staph aureus Will continue to follow and assess progress on 1A May need further Incision and Drainage if fails to progress- need to be cautious due to recent OD on plavix Supportive care Subjective Patient reports: no new complaints, feels better, still having pain, pain is less, voiding w/o difficulty, afebrile Objective Vital Signs - Last 8 Hours Temp Pulse Resp BP Pulse Ox 01/06/17 07:07 98.5 F 98 16 153/107 96 01/06/17 03:46 98.2 F 89 18 138/95 95 Intake and Output 01/05/17 01/06/17 01/06/17 23:59 07:59 15:59 Intake Total 1340 / 1340 800 / 800 240 / 240 Output Total 1150 / 1150 1550 / 1550 225 / 225 Balance 190 / 190 -750 / -750 Intake: IV Fluids 200 / 200 100 / 100 Unasyn 1,500 mg In 0.9 % 200 / 200 100 / 100 Sodium Chloride (Mini-Bag +) 100 ML @ 200 mls/hr IVPB Q6H [facility] Rx#: [id number] Oral 1140 / 1140 700 / 700 240 / 240 Output: Urine 1150 / 1150 1550 / 1550 225 / 225 Other: Meal Dinner Breakfast Percent of Meal Consumed 100% 100% Stool Size Moderate Moderate Stool Consistency soft loose formed Stool Characteristics Normal for Patient Stool Color Brown # Voids 1 Blood Glucose* 194 122 - General physical appearance well developed, well nourished, no distress - Eyes normal ocular movement - ENT normal mucosa, atraumatic, normocephalic - Neck Neck exam: trachea midline - Respiratory normal respiratory effort - Cardiovascular Cardiovascular exam: Present: RRR - Abdomen Abdomen: Present: soft, non tender - Integumentary other (Posterior neck with open infected furuncle- Draining small amount of thin , purulent drainage without odor. Erythema and induration improved. Tenderness improved.) - Neurologic CN 2-12 grossly intact - Musculoskeletal normal gait, normal posture - Psychiatric oriented to time, oriented to person, oriented to place, speech is normal, memory intact - Labs 01/06/17 04:23 05/23/17 04:23 Diabetes panel 01/06/17 Range/Units 04:23 Sodium 136 (136-145) mEq/L Potassium 3.5 (3.5-4.5) mEq/L Chloride 107 (98-109) mEq/L Carbon Dioxide 22 (19-29) mEq/L BUN 9 (8-26) mg/dL Creatinine 0.84 (0.72-1.25) mg/dL Glucose 144 H (70-99) mg/dL Calcium 8.7 (8.6-10.8) mg/dL Calcium panel 01/06/17 Range/Units 04:23 Calcium 8.7 (8.6-10.8) mg/dL Pituitary panel 01/06/17 Range/Units 04:23 Sodium 136 (136-145) mEq/L Potassium 3.5 (3.5-4.5) mEq/L Chloride 107 (98-109) mEq/L Carbon Dioxide 22 (19-29) mEq/L BUN 9 (8-26) mg/dL Creatinine 0.84 (0.72-1.25) mg/dL Glucose 144 H (70-99) mg/dL Calcium 8.7 (8.6-10.8) mg/dL Adrenal panel 01/06/17 Range/Units 04:23 Sodium 136 (136-145) mEq/L Potassium 3.5 (3.5-4.5) mEq/L Chloride 107 (98-109) mEq/L Carbon Dioxide 22 (19-29) mEq/L BUN 9 (8-26) mg/dL Creatinine 0.84 (0.72-1.25) mg/dL Glucose 144 H (70-99) mg/dL Calcium 8.7 (8.6-10.8) mg/dL - VTE Documentation of Mechanical Device: Intermittent pneumatic compression device Consult Discharge Plan - Plan Referrals: [facility] [place],Fab Colon MD [Non-Partnered Physician] -
--- NOTE | 2017-01-06 13:00 | Discharge Summary ---
Date of Encounter: 01/06/17 Time of Encounter: 12:00 - Discharge Diagnosis (1) Suicide attempt Priority: Primary Status: Acute (2) Overdose Priority: Primary Status: Acute Qualifiers: Encounter type: initial encounter Injury intent: intentional self-harm Qualified Code(s): T50.902A - Poisoning by unspecified drugs, medicaments and biological substances, intentional self-harm, initial encounter (3) Suicidal ideation Priority: Primary Status: Acute (4) DVT prophylaxis Priority: Secondary Status: Acute (5) Furuncle Priority: Primary Status: Acute (6) Depression Priority: Primary Status: Chronic Qualifiers: Depression Type: major depressive disorder Major depression recurrence: recurrent Active/Remission status: currently active Major depression episode severity: severe Psychotic features: without psychotic features Qualified Code(s): F33.2 - Major depressive disorder, recurrent severe without psychotic features (7) Diabetes mellitus Priority: Primary Status: Chronic Qualifiers: Diabetes mellitus type: type 2 Diabetes mellitus complication status: with hyperglycemia Diabetes mellitus mcc insulin use: without manager terminal use Qualified Code(s): E11.65 - Type 2 diabetes mellitus with hyperglycemia (8) Hypertension Priority: Secondary Status: Chronic Qualifiers: Hypertension type: essential hypertension Qualified Code(s): I10 - Essential (primary) hypertension (9) Morbid obesity with BMI of 40.0-44.9, adult Priority: Secondary Status: Chronic - Discharge Medications Prescriptions: amLODIPine [Norvasc] 10 mg PO DAILY #60 tablet Amoxicillin/Clavulanate [Augmentin] 875 mg PO BIDWM #14 tablet Insulin DETEMIR [Levemir] 30 unit SQ HS 30 Days Insulin LISPRO [HumaLOG] 10 units SQ TIDWM 30 Days Home Medications: Aspirin [Lo-Dose Aspirin EC] 81 mg PO DAILY 01/03/17 [History] Multivitamin [One Daily Essential] 1 tab PO DAILY 01/03/17 [History] Amoxicillin/Clavulanate [Augmentin] 875 mg PO BIDWM #14 tablet 01/06/17 [Rx] Insulin DETEMIR [Levemir] 30 unit SQ HS 30 Days 01/06/17 [Rx] Insulin LISPRO [HumaLOG] 0 units SQ HS vial 01/06/17 [Rx] Insulin LISPRO [HumaLOG] 0 units SQ TIDAC vial 01/06/17 [Rx] Insulin LISPRO [HumaLOG] 10 units SQ TIDWM 30 Days 01/06/17 [Rx] amLODIPine [Norvasc] 10 mg PO DAILY #60 tablet 01/06/17 [Rx] Allergies/Adverse Reactions: Allergies esomeprazole [From Nexium] Allergy (Verified 01/03/17 09:30) Rash Cyclobenzaprine [From Flexeril] Adverse Reaction (Verified 01/03/17 09:30) Hypotension Procedures/tests Complete & Pending: Procedures Performed prior 72 hours Category Date Time Status ECG 12 lead ECG [ECG] AM 0600 Y 01/04/17 06:00 Ordered - Notes to Outpatient Provider 1. Pt has furuncle, please continue po augmentin 875mg bid and follow up surgical recommendation. 2. Pt has newly diagnosed diabetes. On Insulin detemir 30 units HS, insulin lispro 10 units with each meal, and insulin sliding scale ACHS low dose. Please continue insulin upon discharge, make sure home health. Pt needs closely follow up with PCP for manager terminal DM management. Date of admission: 01/03/17 10:58 Primary care physician: PCP NO Consults: 01/03/17 11:07 Consult to Educational Institution Curator [CONS] Routine Comment: Reason for Consult: new onset DM 01/03/17 11:08 Consult to Psychiatry [CONS] Routine Consulting Provider: Psychiatry Barbara Reason for Consult: SI,OD Time Notified: 11:09 Call Completed: Yes 01/03/17 12:27 Consult to Pastoral Services [CONS] Routine Comment: 01/05/17 11:02 Consult to Surgery [CONS] Routine Consulting Provider: Surgery Barbara Surgical Reason for Consult: I and D of neck abscess Call Completed: Yes Discharging clinician: Juanito Henson Anticipated date of discharge: 01/06/17 - Patient Status Disposition: Transfer Psychiatric Hosp Condition: Fair Functional capacity at discharge: independent ambulation Overall status at discharge: patient is back to baseline - Discharge Instructions Follow Up With: UcFab arndt MD [Non-Partnered Physician] - - Diet and Activity Activity: increase activity as tolerated Diet: diabetic diet Interval History: Mr. Walters is a 61 year old male past medical history of hypertension CAD with stent placement depression and schizophrenia asthma. According to patient he is struggled with depression all of his life. He states for approximately 1 year is not taking any of his medications over the past few days he has been feeling increasingly depressed he decided he wanted to kill himself and he took unknown amount of trazodone at approximately 30 Plavix. He apparently called EMS and in the process he fell he denies hitting his head or any loss of consciousness. He was brought to the ER for further evaluation. According to ER records lab work did reveal some hyperglycemia glucose 428 as well as AK I creatinine 1.37. Patient's bicarbonate 17. Anion gap 23 ER physician did call poison control who advised supportive treatment. CT of head was negative for any intracranial abnormalities. EKG sinus tachycardia Patient was given IV fluids and he has been admitted for further workup and evaluation. Presently patient is sleeping is arousable to verbal stimuli oriented following simple commands. Cranial nerves II through XII intact. Heart sounds S1 and S2 with no rubs, murmurs or gallops noted lungs sounds clear abdomen soft and nontender. He is hemodynamically stable this time. Presently patient denies any suicidal thoughts. Patient states he does have past history of auditory hallucinations however he has not experienced any recently We will place patient on suicide observation will consult psychiatry. Hospital course: Mr. Walters is a 61 year old male dmitted for suicidal attempt and medication overdose. Positive control was called by ER. The patient was admitted for observation. During hospitalization, he was also found diabetes with a hemoglobin A 1C 11.8. he also has a Furuncle, surgical consult was called. after treatment, his condition has improved. No further bleeding,vital signs stable, labs are stable. Poison control was called again and recommend patient discharged to psychiatry service ( Plavix overdose need to have 12 hour observation per poison control). patient was educated to use insulin by staff educator. Psychiatry saw patient and recommended discharge patient to psychiatry unit for further management. surgical consul will continue follow patient in psych unit. Patient is ready to discharge to . - Time Spent with Patient Total time spent providing and/or coordinating discharge services: 40 min Greater than 30 minutes - Constitutional Vitals: Temp Pulse Resp BP Pulse Ox 98.5 F 98 16 153/107 96 01/06/17 07:07 01/06/17 07:07 01/06/17 07:07 01/06/17 07:07 01/06/17 07:07 General appearance: Present: A&O X 3, morbidly obese, pleasant, no acute distress, answers questions appropriately - Head Head exam: Present: atraumatic, normocephalic - Eye Eye exam: Present: PERRL, conjuntiva pink, sclera anicteric Pupils: Present: PERRL - Neck Neck exam general surgery: Present: supple, trachea midline. Absent: lymphadenopathy - Respiratory Respiratory exam: Present: CTAB. Absent: accessory muscle use, rales, rhonchi, wheezes - Cardiovascular Cardiovascular exam: Present: RRR, +S1, +S2. Absent: diastolic murmur, gallop, rubs, systolic murmur - GI/Abdominal GI/Abdominal exam: Present: normal bowel sounds, soft, no peritoneal signs. Absent: distended, tenderness - Extremities Exam Extremities exam: Present: warm, radial pulses palpable and symetrical. Absent : calf tenderness, cyanotic, pedal edema - Neurological Exam Neurological exam: Present: CN II-XII intact, oriented X3, no focal deficits. Absent: pronater drift, facial droop, speech deficit - Skin Skin exam: Present: dry, intact - VTE Documentation of Mechanical Device: Intermittent pneumatic compression device
== END 2017-01-06 15:07 | disposition home or self-care (01) | DRG 812 ==
LOC: 3ANU 08:26 → EMEROO 08:26 → SUATTDRO 10:58 → 3ANU 11:06
PROVIDERS: ADMIT Internal Medicine Sleep Medicine; ATTEND Internal Medicine

== ENCOUNTER 2017-01-06 15:10 | Inpatient (IN) ==
[2017-01-06] MEDS ORDERED: *HR* Dextrose 50 % in Water (Syg) 50 ML SYRINGE IVP PRN (15:30)
[2017-01-06] MEDS ORDERED: D5% in Water 1,000 ML IVC PRN (15:30)
[2017-01-06] MEDS ORDERED: Dextrose Gel 15 GM PO PRN ×2 (15:30)
[2017-01-06] MEDS ORDERED: *HR* LORazepam 2 MG/ML VIAL IM PRN (15:31)
[2017-01-06] MEDS ORDERED: *HR* LORazepam 1 MG TABLET PO PRN (15:31)
[2017-01-06] MEDS ORDERED: Haloperidol Lactate 5 MG/ML VIAL IM PRN (15:31)
[2017-01-06] MEDS ORDERED: Mag Hydrox/Al Hydrox/Simeth 30 ML UDC PO PRN (15:31)
[2017-01-06] MEDS ORDERED: MOM Conc 10 ML UD.LIQ PO PRN (15:31)
[2017-01-06] MEDS: Insulin LISPRO 300 UNITS/3 ML VIAL SQ SCH ×3 (16:57→17:02)
[2017-01-06] MEDS: Insulin DETEMIR 100 UNIT/ML X5UNITS SQ SCH (21:42)
[2017-01-06] MEDS: hydrOXYzine pamoate 25 MG CAPSULE PO PRN (21:42)
[2017-01-06] MEDS: traZODone 50 MG TABLET PO PRN (21:42)
[2017-01-07] MEDS: Insulin LISPRO 300 UNITS/3 ML VIAL SQ SCH ×7 (08:00→21:17)
[2017-01-07] MEDS: Aspirin Enteric Coated 81 MG Tablet PO SCH (08:19)
[2017-01-07] MEDS: Multivit/Ca/Min/Fe/FA 1 TAB TABLET PO SCH (08:19)
[2017-01-07] MEDS: amLODIPine 5 MG TABLET PO SCH (08:20)
--- NOTE | 2017-01-07 10:38 | Psychiatry History & Physical ---
Date of Encounter: 01/07/17 Time of Encounter: 10:00 History of Present Illness Patient Stated Chief Complaint: Suicide attempt by overdose Medicare Admission Attestation: For traditional Medicare patients the provided hospital inpatient services are reasonable and necessary and in the case of services not specified as inpatient -only under 42 CFR 419.22 (n), that they are appropriately provided as inpatient services in accordance 42 CFR 412.3. For Critical Access Hospital the patient may reasonably be expected to be discharged or transferred to a hospital within 96 hours after admission to the Critical Access Hospital. Admitted From: Intrahospital Transfer (3 B) History of Present Illness: Mr. Walters is a 61 year old male admitted to the hospital for treatment of an overdose on medication including according to records trazodone and blood pressure medication or Plavix. Patient was seen in consultation by psychiatry and recommended to be admitted to behavioral health for further treatment. Please see consults in the system. Patient states she had long history of depression and mental illness and has been treated as outpatient and taking medication under care of psychiatrist until a year ago when he stopped taking medication and isolated himself and his depression became worse until he attempted killing himself by overdose. Patient reports depressed moods, hopelessness, auditory hallucinations and paranoid delusions and visual hallucinations. 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 He lives alone and never been and has no children. He has some support from sisters. He does not smoke cigarettes, consuming some caffeine and denies any use of alcohol or drugs. Past Med Surg Social Fam HX - Past Medical History Medical history: asthma, myocardial infarction - Past Psychiatric History Psychiatric history: Reports: depression, schizophrenia - Social History Smoking Status: Never smoker Smokeless Tobacco Status: No Alcohol use: rarely Drug use: none - Family History Mother Adopted: No Family Member Ethnicity: Non- Living Status: Hx Family Cardiac Disorders: No Hx Family Respiratory Disorders: No Hx Family Cancer: No Hx Family GI Disorders: No Hx Family Endocrine Disorder: No Hx Family Neuromuscular Disorders: No Hx Family Neurologic Disorders: No Hx Family HEENT Disorders: No Hx Family Autoimmune Disorders: No Father Family Member Ethnicity: Non- Living Status: Hx Family Cardiac Disorders: Yes Hx Family Respiratory Disorders: Yes Hx Family Cancer: No Hx Family GI Disorders: No Hx Family Endocrine Disorder: No Hx Family Neuromuscular Disorders: No Hx Family Neurologic Disorders: No Hx Family HEENT Disorders: No Hx Family Autoimmune Disorders: No Medications & Allergies Aspirin [Lo-Dose Aspirin EC] 81 mg PO DAILY 01/03/17 [History] Multivitamin [One Daily Essential] 1 tab PO DAILY 01/03/17 [History] Amoxicillin/Clavulanate [Augmentin] 875 mg PO BIDWM #14 tablet 01/06/17 [Rx] Insulin DETEMIR [Levemir] 30 unit SQ HS 30 Days 01/06/17 [Rx] Insulin LISPRO [HumaLOG] 0 units SQ HS vial 01/06/17 [Rx] Insulin LISPRO [HumaLOG] 0 units SQ TIDAC vial 01/06/17 [Rx] Insulin LISPRO [HumaLOG] 10 units SQ TIDWM 30 Days 01/06/17 [Rx] amLODIPine [Norvasc] 10 mg PO DAILY #60 tablet 01/06/17 [Rx] Allergies esomeprazole [From Nexium] Allergy (Verified 01/03/17 09:30) Rash Cyclobenzaprine [From Flexeril] Adverse Reaction (Verified 01/03/17 09:30) Hypotension Review of Systems Psychiatric: Reports: depression, suicidal ideation, auditory hallucinations, hopelessness Mental Status Exam Patient orientation: Yes Person, Yes Time, Yes Place Level of alertness: Alert Patient appearance: Appropriate, Unkempt, Disheveled, Obese Behavior: calm, cooperative, tearful Psychomotor activity: Slowed Eye contact: Minimal Contact Mood description: Depressed, Anxious Affect description: congruent with mood, constricted, blunted Speech pattern: Normal rate, Normal rhythm, Normal tone Speech volume: Normal Thought process: Linear, Goal Oriented, Circumstantial Thought content: Yes Suicidal ideation, No Homicidal ideation, No Overt delusions, Yes Paranoid delusion Perceptual disturbances: Yes Auditory hallucinations, No Visual hallucinations Attention span: Capable of Focused Attention Memory description: Grossly Intact Patient reliability: Reliable Historian Intelligence estimate: Average Judgment: Limited Insight: Partial Results - Vital Signs Vital signs: Temp Pulse Resp BP 98.3 F 109 16 197/114 01/07/17 09:00 01/07/17 09:00 01/07/17 09:00 01/07/17 09:00 - Labs Labs: Laboratory Last Values POC Glucose 114 (58-89) H 01/07/17 07:59 Assessment and Plan (1) Depression, major, recurrent, severe with psychosis Current visit: Yes Status: Acute Plan: Admit inpatient for safety and stabilization, Close observation, Suicide Precautions per unit protocol, Encourage participation in unit milieu, Group Therapy, Monitor sleep, Monitor appetite Additional Plan: We will start patient on medication including Wellbutrin SR 150 mg daily and Abilify 10 mg daily. Benefits and side effects were discussed patient is agreeable to start and will monitor. Risks, benefits, side effects, alternatives discussed w/pt: Yes Patient agreeable to treatment: Yes
[2017-01-07] MEDS: BuPROPion SR (12 HR) 150 MG TABLET PO SCH (11:52)
[2017-01-07] MEDS: ARIPiprazole 10 MG TABLET PO SCH (11:52)
[2017-01-07] MEDS: traZODone 50 MG TABLET PO PRN (21:08)
[2017-01-07] MEDS: hydrOXYzine pamoate 25 MG CAPSULE PO PRN (21:08)
[2017-01-07] MEDS: Insulin DETEMIR 100 UNIT/ML X5UNITS SQ SCH (22:36)
--- NOTE | 2017-01-08 01:50 | Internal Medicine Consult Note ---
Date of Encounter: 01/08/17 Time of Encounter: 01:48 - Assessment and Plan (1) Uncontrolled hypertension Current Visit: Yes Status: Acute Assessment and plan: patient has a known history of HTN on amlodipine, his BP has been uncontrolled on this, his currently has no symptoms of elevated BP, we will add SRI-I for it' s protective effect on the kidney in proteinuric DM, we will check UA, and BMP for SBP>180mmHg, we will have PRN labetalol 10mg Q1H, we will keep titrating antihypertensives for better BP control (2) Diabetes mellitus Current Visit: Yes Status: Chronic Assessment and plan: hx of type 2 DM with A1c of 11.8% this month on insulin regimen, to continue basal bolus regimen with FS ACHS Qualifiers: Diabetes mellitus type: type 2 Diabetes mellitus complication status: with hyperglycemia Diabetes mellitus rn long term care insulin use: with alf use Qualified Code(s): E11.65 - Type 2 diabetes mellitus with hyperglycemia; Z79.4 - senior care (current) use of insulin (3) Depression Current Visit: Yes Status: Chronic Assessment and plan: s/p suicide attempt and under the care of the psychiatrist, we will defer to their expertise Qualifiers: Depression Type: major depressive disorder Major depression recurrence: recurrent Active/Remission status: currently active Major depression episode severity: severe Psychotic features: without psychotic features Qualified Code(s): F33.2 - Major depressive disorder, recurrent severe without psychotic features (4) ANDRES (obstructive sleep apnea) Current Visit: Yes Status: Chronic Assessment and plan: s/p surgical intervention and per patient he has been fine, we will monitor Internal Medicine - CN: HPI - Data of Consult Patient: known to practice within the last 3 years Consult date: 01/08/17 Requesting Physician: Eliecer Valentine MD - Consult Narrative Reason for consult: Uncontrolled Hypertension History of present illness: Mr. Walters is a 61 year old male with a history of uncontrolled HTN and recently diagnosed DM type 2 on insulin was admitted to the hospital on 01/07 with suicide attempt from severe depression. The hospitalist team was consulted to help assist in managing his BP. He is currently on amlodipine 10mg PO daily and his BP reading is in the 170's and 190's systolic. Patient denies headache, chest pain or dyspnea but admits to dyspnea on exertion. No other concerning symptoms. Past Med Surg Social Fam HX - Past Medical History Source: patient, old records reviewed Medical history: asthma, coronary artery disease (had [place] in 2003 s/p stent), diabetes, hypertension, myocardial infarction, other (ANDRES ) Psychiatric history: depression, schizophrenia - Past Surgical History Surgical History: angioplasty/stent (2003), other (surgery for ANDRES, tonsillectoy was also performed) - Social History Smoking Status: Never smoker (but has been exposed to 2nd hand smoke his whole life) Smokeless Tobacco Status: No Alcohol use: rarely Drug use: none Occupational status: disabled Activity Level: Independent ambulation - Family History Mother Adopted: No Family Member Ethnicity: Non- Living Status: Hx Family Cardiac Disorders: No Hx Family Respiratory Disorders: No Hx Family Cancer: No Hx Family GI Disorders: No Hx Family Endocrine Disorder: No Hx Family Neuromuscular Disorders: No Hx Family Neurologic Disorders: No Hx Family HEENT Disorders: No Hx Family Autoimmune Disorders: No Father Family Member Ethnicity: Non- Living Status: Hx Family Cardiac Disorders: Yes Hx Family Respiratory Disorders: Yes Hx Family Cancer: No Hx Family GI Disorders: No Hx Family Endocrine Disorder: No Hx Family Neuromuscular Disorders: No Hx Family Neurologic Disorders: No Hx Family HEENT Disorders: No Hx Family Autoimmune Disorders: No Internal Medicine - CN: Meds Aspirin [Lo-Dose Aspirin EC] 81 mg PO DAILY 01/03/17 [History] Multivitamin [One Daily Essential] 1 tab PO DAILY 01/03/17 [History] Amoxicillin/Clavulanate [Augmentin] 875 mg PO BIDWM #14 tablet 01/06/17 [Rx] Insulin DETEMIR [Levemir] 30 unit SQ HS 30 Days 01/06/17 [Rx] Insulin LISPRO [HumaLOG] 0 units SQ HS vial 01/06/17 [Rx] Insulin LISPRO [HumaLOG] 0 units SQ TIDAC vial 01/06/17 [Rx] Insulin LISPRO [HumaLOG] 10 units SQ TIDWM 30 Days 01/06/17 [Rx] amLODIPine [Norvasc] 10 mg PO DAILY #60 tablet 01/06/17 [Rx] Allergies esomeprazole [From Nexium] Allergy (Verified 01/03/17 09:30) Rash Cyclobenzaprine [From Flexeril] Adverse Reaction (Verified 01/03/17 09:30) Hypotension Internal Medicine - CN: Exam - Constitutional Vitals: Temp Pulse Resp BP 98.1 F 99 20 155/94 01/07/17 21:27 01/07/17 22:40 01/07/17 21:27 01/07/17 22:40 PHYSICAL EXAMINATION: GENERAL: Adult male, sitting up in a chair, Alert, not in acute distress, obese looking HEENT: NC/AT, EOMI, PERRLA, anicteric sclera, normal conjunctiva, supple, clear nares, moist mucous membranes, RESP: lungs are clear to auscultation bilaterally, good AE bilaterally, No crackles or wheeze CARDIO: Normal hearts sounds; S1 and 2, RRR with no murmurs, no JVD, no ankle edema GI: Soft, full, no tenderness, no organomegaly felt, normal bowel sounds heard MUSCULOSKELETAL: grossly normal movements bilaterally, no deformities noted, no calf tenderness NEUROLOGIC: CN 2-12 intact grossly. No motor/sensory deficit appreciated, PSYCHIATRY: AAO x 3. Mood is fair, SKIN: no skin rash or ulcers noted Consult Discharge Plan - Plan Referrals: NO,PCP [Primary Care Provider] -
[2017-01-08] MEDS ORDERED: *HR* Labetalol 20 MG/4 ML SYRINGE IVP PRN (03:38)
[2017-01-08 06:24] LABS: Basophils # 0.1 K/mcL (0.0-0.2); Basophils % 0.9 %; Eosinophils # 0.4 K/mcL (0.0-0.6); Eosinophils % 5.1 %; Hemoglobin 13.2 g/dL (12.9-16.9); Lymphocytes # 1.8 K/mcL (0.6-4.6); Lymphocytes % 25.5 %; Mean Corpuscular Volume 75.8 fL (83.0-100.0); Mean Platelet Volume 8.8 fL (9.4-12.4); Monocytes # 1.1 K/mcL (0.0-1.3); Monocytes % 16.5 %; Neutrophils # 3.5 K/mcL (1.6-8.9); Platelet Count 335 K/mcL (140-400); Red Blood Count 5.28 M/mcL (4.19-5.50); Red Cell Distribution Width 15.5 % (11.5-14.5)
[2017-01-08] MEDS: *HR* Heparin 5,000 UNIT/ML VIAL SQ SCH ×3 (06:25→21:45)
[2017-01-08 06:28] LABS: BUN/Creatinine Ratio 9 (6-26); Blood Urea Nitrogen 9 mg/dL (8-26); Calcium 8.8 mg/dL (8.6-10.8); Carbon Dioxide 21 mEq/L (19-29); Chloride 106 mEq/L (98-109); Glucose 207 mg/dL (70-99); Magnesium 1.6 mg/dL (1.6-2.6); Osmolality,Calculated 289 (280-300); Phosphorous 3.3 mg/dL (2.3-4.7); Potassium 3.9 mEq/L (3.5-4.5); Sodium 137 mEq/L (136-145); eGFR For African Americans > 60 (> 60); eGFR For Non-African Americans > 60 (> 60)
[2017-01-08] MEDS: ARIPiprazole 10 MG TABLET PO SCH (08:20)
[2017-01-08] MEDS: Aspirin Enteric Coated 81 MG Tablet PO SCH (08:21)
[2017-01-08] MEDS: amLODIPine 5 MG TABLET PO SCH (08:21)
[2017-01-08] MEDS: BuPROPion SR (12 HR) 150 MG TABLET PO SCH (08:21)
[2017-01-08] MEDS: Multivit/Ca/Min/Fe/FA 1 TAB TABLET PO SCH (08:21)
[2017-01-08] MEDS: Insulin LISPRO 300 UNITS/3 ML VIAL SQ SCH ×7 (08:23→21:45)
--- NOTE | 2017-01-08 15:59 | Psychiatry Progress Note ---
Date of Encounter: 01/08/17 Time of Encounter: 15:55 Subjective Interval history: Patient is here for follow-up. Nursing staff report concerned regarding his medical management by the hospitalist service where the wrists issues like hypertension and recently diagnosed diabetes and we did not get a response to stabilize the patient recently suggested moving him to inpatient med medical for and they declined the admission and this time patient Medical status needed to be evaluated and he is not clear for discharge at this point from medical standpoint . from psychiatric standpoint patient is stable and can be discharged however we will be waiting for internal medicine service input to assure patient's safety on discharge. Review of Systems Psychiatric: Reports: depression, suicidal ideation, auditory hallucinations, hopelessness Objective: Exam Patient orientation: Yes Person, Yes Time, Yes Place Level of alertness: Alert Patient appearance: Appropriate, Well Groomed, Obese Behavior: calm, cooperative Psychomotor activity: Normal Eye contact: Maintains Eye Contact Mood description: Euthymic/stable Affect description: congruent with mood, full range Speech pattern: Normal rate, Normal rhythm, Normal tone Speech volume: Normal Thought process: Linear, Goal Oriented Thought content: No Suicidal ideation, No Homicidal ideation, No Overt delusions Perceptual disturbances: No Auditory hallucinations, No Visual hallucinations Judgment: Fair Insight: Partial Results - Vital Signs Vital Signs: Temp Pulse Resp BP 98.2 F 99 20 178/106 01/08/17 09:00 01/08/17 09:00 01/08/17 09:00 01/08/17 09:00 - Labs Labs: Laboratory Results - last 24 hr 01/07/17 01/07/17 01/08/17 16:34 21:07 05:54 WBC 6.9 RBC 5.28 Hgb 13.2 Hct 40.0 MCV 75.8 L MCH 25.0 L MCHC 33.0 RDW 15.5 H Plt Count 335 MPV 8.8 L Immature Gran % 1.0 Seg Neutrophils % 51.0 Lymphocytes % 25.5 Monocytes % 16.5 Eosinophils % 5.1 Basophils % 0.9 Neutrophils # 3.5 Lymphocytes # 1.8 Monocytes # 1.1 Eosinophils # 0.4 Basophils # 0.1 Sodium Potassium Chloride Carbon Dioxide BUN Creatinine Est GFR ( Amer) Est GFR (Non-Af Amer) BUN/Creatinine Ratio Glucose POC Glucose 101 H 152 H Calculated Osmolality Calcium Phosphorus Magnesium 01/08/17 01/08/17 01/08/17 05:54 08:08 11:47 WBC RBC Hgb Hct MCV MCH MCHC RDW Plt Count MPV Immature Gran % Seg Neutrophils % Lymphocytes % Monocytes % Eosinophils % Basophils % Neutrophils # Lymphocytes # Monocytes # Eosinophils # Basophils # Sodium 137 Potassium 3.9 Chloride 106 Carbon Dioxide 21 BUN 9 Creatinine 0.96 Est GFR ( Amer) > 60 Est GFR (Non-Af Amer) > 60 BUN/Creatinine Ratio 9 Glucose 207 H POC Glucose 148 H 113 H Calculated Osmolality 289 Calcium 8.8 Phosphorus 3.3 Magnesium 1.6 Assessment and Plan (1) Depression, major, recurrent, severe with psychosis Current visit: Yes Status: Acute Risks, benefits, side effects, alternatives discussed w/pt: Yes Patient agreeable to treatment: Yes Consult Discharge Plan - Plan Referrals: [facility] [Outside] - 01/09/17 10:30 am (The above appointment is with Dr. Navarro. [facility] [employer] will take you to this appointment and then back home.) [facility] [Outside] - 01/14/17 11:30 am (The above appointment is with Philip Cardenas. [employer] [employer] will take you to this appointment and then back home. When you come to your first appointment, you will have an orientation to the agency and you will meet with a counselor. Please bring the following with you to your first visit to the clinic: 1) proof of household income (two consecutive pay stubs, social security award letter, bank statement, statement letter from [facility], child support statement, IRS 1040 or W2 form, or a statement from the person who financially supports you stating they help provide for your basic needs), 2) proof of residency (drivers license , a piece of mail showing your address, a statement from person you live with verifying you live at their address), 3) your social security card, 4) photo ID , 5) your insurance card (if you have commercial insurance you must call to obtain a prior authorization number before you arrive to your first appointment ) and 6) if you do not have insurance but have applied for Medicaid, please bring verification you have applied. This is the first available appointment. You may contact the office regularly to check for cancellations that may allow you to be seen sooner. )
--- NOTE | 2017-01-08 17:37 | Internal Med Progress Note ---
Date of Encounter: 01/08/17 Time of Encounter: 16:00 - Assessment and plan (1) Hyperglycemia Current Visit: No Status: Acute Assessment and plan: Secondary to diabetes. Improved with subcutaneous insulin. (2) Suicidal ideation Current Visit: No Status: Acute Assessment and plan: Management per primary psychiatric service. (3) DVT prophylaxis Current Visit: No Status: Acute (4) Diabetes mellitus Current Visit: Yes Status: Chronic Assessment and plan: I will give him a prescription for Levemir 30 units. He has been instructed by the store warehouse associate regarding insulin administration and met measuring blood glucose. I will also give a prescription for Accu-Chek machine with test strips and lancets. I agree with provide him a home health for diabetes management. Qualifiers: Diabetes mellitus type: type 2 Diabetes mellitus complication status: with hyperglycemia Diabetes mellitus halfway insulin use: without halfway use Qualified Code(s): E11.65 - Type 2 diabetes mellitus with hyperglycemia (5) Hypertension Current Visit: Yes Status: Chronic Assessment and plan: Blood pressure is better controlled with amlodipine and lisinopril. I think he could also benefit from adding a diuretic and therefore I will give him prescription for lisinopril/HCTZ. Qualifiers: Hypertension type: essential hypertension Qualified Code(s): I10 - Essential (primary) hypertension (6) Morbid obesity with BMI of 40.0-44.9, adult Current Visit: No Status: Chronic Assessment and plan: Outpatient weight loss regimen - Subjective Interval history: Patient was admitted to the psychiatric for floor for suicidal ideation. We are consulted for management of diabetes and high blood pressure. Per chart review his blood pressure was not 180s to 190s systolic to 100 diastolic yesterday. 170s over 80s today. He was started on lisinopril and addition to amlodipine which was a home medication. - Constitutional Vitals: Temp Pulse Resp BP 98.2 F 99 20 178/106 01/08/17 09:00 01/08/17 09:00 01/08/17 09:00 01/08/17 09:00 General appearance: Present: A&O X 3 - Respiratory Respiratory exam: Present: CTAB. Absent: accessory muscle use, rales, rhonchi, wheezes - Cardiovascular Cardiovascular exam: Present: RRR, +S1, +S2. Absent: diastolic murmur, gallop, rubs, systolic murmur - GI/Abdominal GI/Abdominal exam: Present: normal bowel sounds, soft, no peritoneal signs. Absent: distended, tenderness - Skin Skin exam: Present: dry, intact Internal Medicine: Result - Labs CBC & Chem 7: 01/08/17 05:54 01/08/17 05:54 Labs: Short CBC 01/08/17 Range/Units 05:54 WBC 6.9 (4.3-11.1) K/mcL Hgb 13.2 (12.9-16.9) g/dL Hct 40.0 (37.5-50.1) % Plt Count 335 (140-400) K/mcL Neutrophils # 3.5 (1.6-8.9) K/mcL BMP 01/08/17 05:54 Sodium 137 Potassium 3.9 Chloride 106 Carbon Dioxide 21 BUN 9 Creatinine 0.96 Glucose 207 H Calcium 8.8 - VTE Reasons for not Prescribing Prophylaxis: Treatment not Indicated - Low risk for VTE Consult Discharge Plan - Plan Referrals: [facility] [Outside] - 01/09/17 10:30 am (The above appointment is with Dr. Navarro. [facility] [employer] will take you to this appointment and then back home.) [facility] [Outside] - 01/14/17 11:30 am (The above appointment is with Philip Cardenas. [employer] will take you to this appointment and then back home. When you come to your first appointment, you will have an orientation to the agency and you will meet with a counselor. Please bring the following with you to your first visit to the clinic: 1) proof of household income (two consecutive pay stubs, social security award letter, bank statement, statement letter from [facility], child support statement, IRS 1040 or W2 form, or a statement from the person who financially supports you stating they help provide for your basic needs), 2) proof of residency (drivers license , a piece of mail showing your address, a statement from person you live with verifying you live at their address), 3) your social security card, 4) photo ID , 5) your insurance card (if you have commercial insurance you must call to obtain a prior authorization number before you arrive to your first appointment ) and 6) if you do not have insurance but have applied for Medicaid, please bring verification you have applied. This is the first available appointment. You may contact the office regularly to check for cancellations that may allow you to be seen sooner. ) Prescriptions: Insulin DETEMIR [Levemir Flextouch] 30 unit SQ DAILY #3 insuln.pen Lisinopril-HCTZ 10-12.5 [Prinzide 10-12.5] 1 each PO DAILY #30 tablet
[2017-01-08] MEDS: Insulin DETEMIR 100 UNIT/ML X5UNITS SQ SCH (21:42)
[2017-01-09] MEDS: *HR* Heparin 5,000 UNIT/ML VIAL SQ SCH (06:06)
[2017-01-09] MEDS: Insulin LISPRO 300 UNITS/3 ML VIAL SQ SCH ×2 (08:21→08:22)
[2017-01-09] MEDS: amLODIPine 5 MG TABLET PO SCH (08:31)
[2017-01-09] MEDS: ARIPiprazole 10 MG TABLET PO SCH (08:31)
[2017-01-09] MEDS: BuPROPion SR (12 HR) 150 MG TABLET PO SCH (08:31)
[2017-01-09] MEDS: Multivit/Ca/Min/Fe/FA 1 TAB TABLET PO SCH (08:31)
[2017-01-09] MEDS: Aspirin Enteric Coated 81 MG Tablet PO SCH (08:31)
--- NOTE | 2017-01-09 08:47 | Physician Discharge Referral ---
Home Health/Hosp Referral Info Transfer to: Home Health ([facility]) Provider in Charge Post Discharge: PCP - Diagnosis (1) Depression, major, recurrent, severe with psychosis Status: Acute - Respiratory Orders Smoking Cessation: Smoking cessation has been advised. For more information, call the [place] Tobacco Quit Line at 9-411-VLEH-NOW. - Diet/Nutrition Diet/Nutrition: List: diabetic - Activity Activity Orders: Ambulate - Services Needed Following services are medically necessary services: Nursing (med. teaching and managment) - Transfer Medications Prescriptions: ARIPiprazole [Abilify] 10 mg PO DAILY #30 tablet BuPROPion SR (12 HR) [Wellbutrin SR] 150 mg PO DAILY #30 tablet.er Insulin DETEMIR [Levemir Flextouch] 30 unit SQ DAILY #3 insuln.pen Lisinopril-HCTZ 10-12.5 [Prinzide 10-12.5] 1 each PO DAILY #30 tablet Home Medications: Aspirin [Lo-Dose Aspirin EC] 81 mg PO DAILY 01/03/17 [History] Multivitamin [One Daily Essential] 1 tab PO DAILY 01/03/17 [History] Amoxicillin/Clavulanate [Augmentin] 875 mg PO BIDWM #14 tablet 01/06/17 [Rx] Insulin DETEMIR [Levemir] 30 unit SQ HS 30 Days 01/06/17 [Rx] amLODIPine [Norvasc] 10 mg PO DAILY #60 tablet 01/06/17 [Rx] Insulin DETEMIR [Levemir Flextouch] 30 unit SQ DAILY #3 insuln.pen 01/08/17 [Rx] Lisinopril-HCTZ 10-12.5 [Prinzide 10-12.5] 1 each PO DAILY #30 tablet 01/08/17 [ Rx] ARIPiprazole [Abilify] 10 mg PO DAILY #30 tablet 01/09/17 [Rx] BuPROPion SR (12 HR) [Wellbutrin SR] 150 mg PO DAILY #30 tablet.er 01/09/17 [Rx] Insulin LISPRO [HumaLOG] 0 units SQ HS vial 01/09/17 [Rx] Insulin LISPRO [HumaLOG] 0 units SQ TIDAC vial 01/09/17 [Rx] Lisinopril-HCTZ 10-12.5 [Prinzide 10-12.5] 1 each PO DAILY tablet 01/09/17 [Rx] Allergies/Adverse Reactions: Allergies esomeprazole [From Nexium] Allergy (Verified 01/03/17 09:30) Rash Cyclobenzaprine [From Flexeril] Adverse Reaction (Verified 01/03/17 09:30) Hypotension Certification: Further, I certify that my clinical findings support that this patient is homebound (i.e. absences from home require considerable and taxing effort and are for medical reasons or adventist services or infrequently or short duration when for other reasons) because: Homebound Reason: Altered mental status requiring supervision when leaving home Attestation: My signature below is to certify that this patient is under my care and that I, or nurse practitioner, or a physician's internet marketing assistant working with me, has a face-to -face encounter with this patient.
--- NOTE | 2017-01-09 08:52 | Discharge Summary ---
Date of Encounter: 01/09/17 Time of Encounter: 08:47 Diagnosis - Discharge Diagnosis (1) Depression, major, recurrent, severe with psychosis Status: Acute Medications - Discharge Medications Prescriptions: ARIPiprazole [Abilify] 10 mg PO DAILY #30 tablet BuPROPion SR (12 HR) [Wellbutrin SR] 150 mg PO DAILY #30 tablet.er Insulin DETEMIR [Levemir Flextouch] 30 unit SQ DAILY #3 insuln.pen Lisinopril-HCTZ 10-12.5 [Prinzide 10-12.5] 1 each PO DAILY #30 tablet Aspirin [Lo-Dose Aspirin EC] 81 mg PO DAILY 01/03/17 [History] Multivitamin [One Daily Essential] 1 tab PO DAILY 01/03/17 [History] Amoxicillin/Clavulanate [Augmentin] 875 mg PO BIDWM #14 tablet 01/06/17 [Rx] Insulin DETEMIR [Levemir] 30 unit SQ HS 30 Days 01/06/17 [Rx] Insulin LISPRO [HumaLOG] 0 units SQ HS vial 01/06/17 [Rx] Insulin LISPRO [HumaLOG] 0 units SQ TIDAC vial 01/06/17 [Rx] Insulin LISPRO [HumaLOG] 10 units SQ TIDWM 30 Days 01/06/17 [Rx] amLODIPine [Norvasc] 10 mg PO DAILY #60 tablet 01/06/17 [Rx] Insulin DETEMIR [Levemir Flextouch] 30 unit SQ DAILY #3 insuln.pen 01/08/17 [Rx] Lisinopril-HCTZ 10-12.5 [Prinzide 10-12.5] 1 each PO DAILY #30 tablet 01/08/17 [ Rx] ARIPiprazole [Abilify] 10 mg PO DAILY #30 tablet 01/09/17 [Rx] BuPROPion SR (12 HR) [Wellbutrin SR] 150 mg PO DAILY #30 tablet.er 01/09/17 [Rx] Insulin LISPRO [HumaLOG] 0 units SQ HS vial 01/09/17 [Rx] Insulin LISPRO [HumaLOG] 0 units SQ TIDAC vial 01/09/17 [Rx] Lisinopril-HCTZ 10-12.5 [Prinzide 10-12.5] 1 each PO DAILY tablet 01/09/17 [Rx] Allergies esomeprazole [From Nexium] Allergy (Verified 01/03/17 09:30) Rash Cyclobenzaprine [From Flexeril] Adverse Reaction (Verified 01/03/17 09:30) Hypotension Results Procedures and tests throughout hospitalization: Completed Lab Orders Category Date Time Status Basic Metabolic Panel AM 0400 Lab 01/08/17 05:54 Completed Complete Blood Count [HEME] AM 0400 Lab 01/08/17 05:54 Completed Magnesium AM 0400 Lab 01/08/17 05:54 Completed Phosphorous AM 0400 Lab 01/08/17 05:54 Completed Provider Date of admission: 01/06/17 15:10 Primary care physician: PCP NO Consults: 01/06/17 16:00 Consult to Pastoral Services [CONS] Routine Comment: 01/07/17 09:01 Consult to Hospitalist [CONS] Routine Consulting Provider: Hospitalist [facility] Reason for Consult: Increased Blood pressure on admission from 3A 191/115 and heart rate 119. This AM is 197/114 with a heart rate 109. Call Completed: Yes Discharging clinician: Eliecer Valentine Assessment and Plan - Patient/Caregiver Discharge Instructions Activity: resume usual activities as tolerated Diet: regular diet - Follow up Plan Follow up with: [facility] [Outside] - 01/09/17 10:30 am (The above appointment is with Dr. Navarro. [facility] [employer] will take you to this appointment and then back home.) [facility] [Outside] - 01/14/17 11:30 am (The above appointment is with Philip Cardenas. [employer] will take you to this appointment and then back home. When you come to your first appointment, you will have an orientation to the agency and you will meet with a counselor. Please bring the following with you to your first visit to the clinic: 1) proof of household income (two consecutive pay stubs, social security award letter, bank statement, [facility], child support statement, IRS 1040 or W2 form, or a statement from the person who financially supports you stating they help provide for your basic needs), 2) proof of residency (drivers license , a piece of mail showing your address, a statement from person you live with verifying you live at their address), 3) your social security card, 4) photo ID , 5) your insurance card (if you have commercial insurance you must call to obtain a prior authorization number before you arrive to your first appointment ) and 6) if you do not have insurance but have applied for Medicaid, please bring verification you have applied. This is the first available appointment. You may contact the office regularly to check for cancellations that may allow you to be seen sooner. ) Functional capacity at discharge: independent ambulation Overall status at discharge: Stable Disposition: Home, Self-Care Hospital Course Hospital course: Mr. Walters is a 61 year old male admitted from the medical floor after stabilization from an overdose suicide attempt. For details admission please see H&P On the units patient was started on Wellbutrin and Abilify. He tolerated the medication and denied any suicidal ideation and was motivated for follow-up for therapy and medication. However his medical status was unstable for hypertension and newly diagnosed diabetes. Consultation was requested to adjust patient medication and prior to discharge he was medically stable and cleared by internal medicine. Patient discharge follow-up has been completed by the sr. social media & mobile manager. - Time Spent with Patient Total time spent providing and/or coordinating discharge services: Less than 30 minutes Quality - Multiple Antipsychotics Patient discharged on 2 or more antipsychotic medications: No Procedures - Procedures Procedures: Medication Management, Crisis Stabilization, Supportive Therapy, Group Therapy, Psychoeducational Therapy Mental Status Exam - Mental Status Exam Patient orientation: Yes Person, Yes Time, Yes Place Level of alertness: Alert Patient appearance: Appropriate, Well Groomed, Obese Behavior: calm, cooperative Psychomotor activity: Normal Eye contact: Maintains Eye Contact Mood description: Euthymic/stable Affect description: congruent with mood, full range Speech pattern: Normal rate, Normal rhythm, Normal tone Speech Volume: Normal Thought process: Linear, Goal Oriented Thought Content: No Suicidal ideation, No Homicidal ideation, No Overt delusions Perceptual Disturbances: No Auditory hallucinations, No Visual hallucinations Judgment: Limited Insight: Partial
[2017-01-09 09:11] VITALS: BP 154/104
== END 2017-01-09 10:10 | disposition home or self-care (01) | DRG 751 ==
LOC: 1ANU 15:10
PROVIDERS: ADMIT Psychiatry & Neurology Psychiatry; ATTEND Psychiatry & Neurology Psychiatry

== ENCOUNTER 2018-04-16 17:20 | Inpatient (IN) ==
[2018-04-16] MEDS ORDERED: *HR* OxyCODONE/APAP 5/325 TABLET PO ONE (17:31)
[2018-04-16] MEDS ORDERED: Ibuprofen 400 MG TABLET PO ONE (17:31)
--- NOTE | 2018-04-16 17:56 | Emergency Department Note ---
Disposition Clinical Impression: Metabolic acidosis, Acute renal failure Disposition: Admitted As Inpatient Condition: Fair Referrals: Josefina Navarro MD [Primary Care Provider] - Forms: ED Satisfaction Letter Time of Disposition: 19:26 General Adult HPI - General Chief complaint: ED Fall Stated complaint: "States Has Fallen Multiple Times at Home" Time Seen by Provider: 04/16/18 17:38 Source: patient, family Mode of arrival: ambulatory Limitations: age - History of Present Illness HPI Narrative: This is a 62-year-old male brought in by his sister and [id number] because of frequent falls. He states this started 18 hours prior to arrival, but they remind him that he has been falling frequently for the last 4 weeks. He reports chronic shortness of breath with dyspnea on exertion. He states that his legs are very weak. He reports dizziness and lightheadedness. His family says that he has been using a cane for at least 4 weeks because of his unsteady gait. He denies chest pain. - Related Data Home Medications Medication Instructions Recorded Confirmed Aspirin [Lo-Dose Aspirin EC] 81 mg PO DAILY 01/03/17 01/06/17 Multivitamin [One Daily Essential] 1 tab PO DAILY 01/03/17 01/06/17 Previous Rx's Medication Instructions Recorded Insulin DETEMIR [Levemir] 30 unit SQ HS 30 Days [id number] 01/06/17 amLODIPine [Norvasc] 10 mg PO DAILY #60 tablet 01/06/17 Lisinopril-HCTZ 10-12.5 [Prinzide 1 each PO DAILY #30 tablet 01/08/17 10-12.5] ARIPiprazole [Abilify] 10 mg PO DAILY #30 tablet 01/09/17 BuPROPion SR (12 HR) [Wellbutrin 150 mg PO DAILY #30 tablet.er 01/09/17 SR] Insulin LISPRO [HumaLOG] 0 units SQ TIDAC vial 01/09/17 Albuterol Sulfate [Albuterol 0 puff IH Q4HR #1 hfa.aer.ad 01/18/17 Inhaler] Allergies Allergy/AdvReac Type Severity Reaction Status Date / Time esomeprazole [From Nexium] Allergy Rash Verified 01/03/17 09:30 Cyclobenzaprine AdvReac Hypotension Verified 01/03/17 09:30 [From Flexeril] All systems ED: reviewed and negative except as stated. Cardiovascular: Reports: dyspnea on exertion. Denies: chest pain Respiratory: Reports: dyspnea Neurological: Reports: weakness, abnormal gait Past Medical History - Past Medical History Medical history: Reports: asthma, coronary artery disease, diabetes, hypertension, myocardial infarction, other Surgical history: Reports: angioplasty/stent (2003), other (surgery for ANDRES, tonsillectoy was also performed) Psychiatric history: Reports: depression, schizophrenia - Social History Smoking Status: Never smoker Smokeless Tobacco Status: No Alcohol use: Reports: rarely Drug use: Reports: none Physical Exam - General Limitations: age, other (Likely dementia, patient appears to have limited knowledge of his situation and poor memory) General appearance: alert, in no apparent distress - Head Head exam: atraumatic, normocephalic, normal inspection - Eye Eye exam: Present: normal appearance, PERRL, EOMI - Chest Chest inspection: Present: normal inspection, symmetric chest wall rise - Respiratory Respiratory exam: Present: normal lung sounds bilaterally, respiratory distress (Restaurant distress with minimal exertion such as walking 5 steps in the room) , accessory muscle use (During exertion). Absent: wheezes - Cardiovascular Cardiovascular exam: Present: regular rate, normal rhythm, normal heart sounds - Abdominal Exam Abdominal exam: Present: soft, tenderness. Absent: distention, guarding, rebound, rigidity Abdominal tenderness: Present: diffuse, mild - Extremities Exam Extremities exam: Present: normal inspection, full ROM, pedal edema (Minimal trace pedal edema the malleoli). Absent: tenderness - Neurological Exam Neurological exam: Present: alert, CN II-XII intact. Absent: normal gait, motor sensory deficit - Expanded Neurological Exam Patient oriented to: Present: person, place, time Speech: Present: fluid speech Cerebellar function: finger to nose: Normal Cerebellar function: wide-based gait, Romberg normal Motor strength - LUE: 5/5 Motor strength - RUE: 5/5 Motor strength - LLE: 5/5 Motor strength - RLE: 5/5 - Psychiatric Psychiatric exam: Present: normal affect, normal mood - Skin Skin exam: Present: warm, dry, intact, normal color Course Course Narrative: This is a 62-year-old male with a history of asthma reports weakness and increased falls over the last 4 weeks, with several falls in the last 18 hours. Vital Signs Temperature 97.5 F L 04/16/18 17:31 Pulse Rate 118 04/16/18 17:31 Respiratory Rate 18 04/16/18 17:31 Blood Pressure 86/49 04/16/18 17:31 O2 Sat by Pulse Oximetry 95 04/16/18 17:31 Temperature 97.5 F L 04/16/18 17:35 Pulse Rate 107 04/16/18 18:45 Respiratory Rate 20 04/16/18 18:45 Blood Pressure 104/60 04/16/18 18:45 O2 Sat by Pulse Oximetry 100 04/16/18 18:45 Oxygen Delivery Oxygen Delivery Room Air Medical Decision Making - MDM Narrative Medical decision making narrative: This is a 62-year-old male with acute renal failure causing a metabolic acidosis. I discussed his case with the on-call hospitalist, who accepted him for admission. - Lab Data Lab results reviewed: Yes I reviewed the patient's lab results. Lab results narrative: CBC shows leukocytosis at 15.1 with thrombocytosis at 454 BMP showed slight hyponatremia at 133, bicarbonate was decreased at 15, BUN was greatly increased at 86, creatinine elevated at 5.4 Troponin was normal at 0.03 Result diagrams: 04/16/18 17:50 04/16/18 17:50 Lab Results 04/16/18 04/16/18 Range/Units 17:50 17:50 WBC 15.1 H (4.3-11.1) K/mcL RBC 6.17 H (4.19-5.50) M/mcL Hgb 15.4 (12.9-16.9) g/dL Hct 43.6 (37.5-50.1) % MCV 70.7 L (83.0-100.0) fL MCH 25.0 L (28.0-33.3) pg MCHC 35.3 (31.6-35.5) g/dL RDW 14.6 H (11.5-14.5) % Plt Count 454 H (140-400) K/mcL MPV 8.1 L (9.4-12.4) fL Immature Gran % 0.5 (0-4) % Seg Neutrophils % 71.9 % Lymphocytes % 13.8 % Monocytes % 13.1 % Eosinophils % 0.3 % Basophils % 0.4 % Neutrophils # 10.8 H (1.6-8.9) K/mcL Lymphocytes # 2.1 (0.6-4.6) K/mcL Monocytes # 2.0 H (0.0-1.3) K/mcL Eosinophils # 0.0 (0.0-0.6) K/mcL Basophils # 0.1 (0.0-0.2) K/mcL Sodium 133 L (136-145) mEq/L Potassium 4.8 (3.5-5.1) mEq/L Chloride 100 (98-107) mEq/L Carbon Dioxide 15 L (23-29) mEq/L BUN 86 H (8-23) mg/dL Creatinine 5.04 H (0.70-1.30) mg/dL Est GFR ( Amer) 14 L (> 60) Est GFR (Non-Af Amer) 12 L (> 60) BUN/Creatinine Ratio 17 (6-26) Glucose 114 H (70-105) mg/dL Calculated Osmolality 303 H (280-300) Calcium 10.6 H (8.6-10.3) mg/dL Troponin I 0.03 (< 0.04) ng/mL - Radiology Data Radiology results reviewed: Yes I reviewed the patient's radiology results. CT brain showed no acute abnormality Chest x-ray showed no acute findings - EKG Data EKG #1 EKG attestation: Yes I reviewed and interpreted this EKG. EKG results narrative: ECG showed a sinus tachycardia at 112 bpm. Normal intervals, normal axis, T waves are relatively large in the inferior leads because of the very small signal intensity of the QRS complexes in 2, 3, aVF, and V6 Critical Care Time Critical Care Time: Yes Total Critical Care Time: 25 Attestation: Critical care time spent was 25 minutes involved in patient evaluation, reviewing lab test, and discussing results with patient and staff. These were independent of separately billable procedures.
[2018-04-16] MEDS ORDERED: Ipratropium/Albuterol Neb 3 ML IH ONE (17:59)
[2018-04-16] MEDS ORDERED: 0.9 % Sodium Chloride 1,000 ML IVC ONE (18:01)
[2018-04-16 18:04] LABS: Basophils # 0.1 K/mcL (0.0-0.2); Basophils % 0.4 %; Eosinophils % 0.3 %; Hematocrit 43.6 % (37.5-50.1); Hemoglobin 15.4 g/dL (12.9-16.9); Immature Granulocytes % 0.5 % (0-4); Lymphocytes # 2.1 K/mcL (0.6-4.6); Lymphocytes % 13.8 %; Mean Corpuscular HGB Conc 35.3 g/dL (31.6-35.5); Mean Corpuscular Volume 70.7 fL (83.0-100.0); Mean Platelet Volume 8.1 fL (9.4-12.4); Monocytes % 13.1 %; Neutrophils # 10.8 K/mcL (1.6-8.9); Platelet Count 454 K/mcL (140-400); Red Blood Count 6.17 M/mcL (4.19-5.50); Red Cell Distribution Width 14.6 % (11.5-14.5); Segmented Neutrophils % 71.9 %
[2018-04-16 18:28] LABS: Calcium 10.6 mg/dL (8.6-10.3); Potassium 4.8 mEq/L (3.5-5.1)
[2018-04-16 18:29] LABS: Troponin I 0.03 ng/mL (< 0.04)
--- NOTE | 2018-04-16 20:24 | Internal Med History&Physical ---
<Yahaira Horn - Last Filed: 04/16/18 21:24> Date of Encounter: 04/16/18 Time of Encounter: 20:23 Internal Medicine - H&P: HPI Chief complaint: fall, ataxia, AMS Admitted From: Home Plans for Post Hospital Care: Home History of present illness: Mr. Walters is a 62 year old male hx DM, schizophrenia, and pill rolling tremor presented after fall with difficultly walking and confusion. He is poor hsitoryian but describes a unwitnessed fall yesterday with out clear memory of event and since then he has had difficult focusing and speaking. Per family changes began 1-2 months ago when he started using cane and slurred speech that improved. Since last week he has had difficult swallowing. He had one episode of vomiting yesterday.Today he has increased weakness, shortness of breath with exertion and new back pain . He has had 5-6 falls this year with the worse 6 months ago when he hit his head. he reports 50 lb unintentional weight loss since August. In ED, he was found to have T 97.5, HR 118 and BP 86/49 - he has given 1L of fluid - vitals improved to HR 107 and BP 104/60. Labs : WBC 15.1 and SCr 5.04 with hyponatremia 133. Sister and brother in law at bedside. 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 He has significant psychiatric history of schizophrenia whit visual and auditory delusion - he anny any at this time. He has been hospitalized in 1 A after 2 suicide attempted - he denies suicidal ideas at this time. He is diabetic with random blood sugars in 90-100s thus he recently stopped a medication he don't know name of but continue metformin. Past Med Surg Social Fam HX - Past Medical History Medical history: asthma, coronary artery disease, diabetes, hypertension, myocardial infarction, other Additional medical history: pt states he has depression and paranoid schizophrenia Psychiatric history: depression, schizophrenia - Past Surgical History Surgical History: angioplasty/stent (2003), other (surgery for ANDRES, tonsillectoy was also performed) Additional surgical history: Carpal tunnel. - Social History Smoking Status: Never smoker Smokeless Tobacco Status: No Alcohol use: rarely Drug use: none - Family History Mother Adopted: No Family Member Ethnicity: Non- Living Status: Hx Family Cardiac Disorders: No Hx Family Respiratory Disorders: No Hx Family Cancer: No Hx Family GI Disorders: No Hx Family Endocrine Disorder: No Hx Family Neuromuscular Disorders: No Hx Family Neurologic Disorders: No Hx Family HEENT Disorders: No Hx Family Autoimmune Disorders: No Father Family Member Ethnicity: Non- Living Status: Hx Family Cardiac Disorders: Yes Hx Family Respiratory Disorders: Yes Hx Family Cancer: No Hx Family GI Disorders: No Hx Family Endocrine Disorder: No Hx Family Neuromuscular Disorders: No Hx Family Neurologic Disorders: No Hx Family HEENT Disorders: No Hx Family Autoimmune Disorders: No Internal Medicine - H&P: Meds Aspirin [Lo-Dose Aspirin EC] 81 mg PO DAILY 01/03/17 [History] Multivitamin [One Daily Essential] 1 tab PO DAILY 01/03/17 [History] ARIPiprazole [Abilify] 10 mg PO DAILY #30 tablet 01/09/17 [Rx] Benztropine Mesylate 2 mg PO BID 04/16/18 [History] BuPROPion SR (12 HR) [Wellbutrin SR] 150 mg PO BID 04/16/18 [History] Carbidopa/Levodopa 25/100 [Sinemet 25/100] 1 tab PO TID 04/16/18 [History] Lisinopril-HCTZ 20-12.5 [Prinzide 20-12.5] 1 tab PO BID 04/16/18 [History] Metformin HCl 1,000 mg PO BID 04/16/18 [History] hydrOXYzine HCl [Hydroxyzine HCl] 25 mg PO Q6H PRN 04/16/18 [History] traZODone [TraZODone] 50 - 100 mg PO HS 04/16/18 [History] 3 Allergy/AdvReac Type Severity Reaction Status Date / Time esomeprazole [From Nexium] Allergy Rash Verified 01/03/17 09:30 Cyclobenzaprine AdvReac Hypotension Verified 01/03/17 09:30 [From Flexeril] ROS unobtainable: due to mental status All Systems PM: A 10-system review of systems was performed and is negative for pertinent findings except as documented above in the HPI. - Constitutional Constitutional: fatigue, weakness, weight loss - EENT Eyes: no blurry vision, no change in vision Nose, mouth and throat: dry mouth - Cardiovascular Cardiovascular ROS IM: dyspnea on exertion, no chest pain, no lightheadedness, no palpitations - Respiratory Respiratory: dyspnea on exertion, no cough, no wheezing - Gastrointestinal Gastrointestinal: abdominal pain, vomiting, no diarrhea - Genitourinary Genitourinary ROS male: urinary frequency, no dysuria, no urinary incontinence - Musculoskeletal Musculoskeletal ROS IM: arthralgias, back pain, no numbness, no tingling - Neurological Neurological ROS: abnormal speech, no behavioral changes, no dizziness, no headache(s) - Psychiatric Psychiatric: change in appetite, confusion, no auditory hallucinations, no suicidal ideation, no visual hallucinations - Constitutional Vitals: Temp Pulse Resp BP Pulse Ox 97.5 F L 107 20 104/60 100 04/16/18 17:35 04/16/18 18:45 04/16/18 18:45 04/16/18 18:45 04/16/18 18:45 General appearance: Present: cooperative, mild distress, A&O X 3, obese. Absent : answers questions appropriately Exam: he has difficultly following instruction in exam, abnormal thought process, difficult focusing, fails to complete sentences, easily distracted - Head Head exam: Present: atraumatic, normocephalic - ENT ENT exam: Present: mucous membranes dry, normal oropharynx - Respiratory Respiratory exam: Present: CTAB. Absent: rales, respiratory distress, stridor Additional comments: mild increase work of breathing - Cardiovascular Cardiovascular exam: Present: +S1, +S2, tachycardia. Absent: gallop, irregular rhythm, rubs - GI/Abdominal GI/Abdominal exam: Present: normal bowel sounds, tenderness. Absent: mass, rebound, rigid Additional comments: mild tenderness in LLQ and epigastric - Extremities Exam Extremities exam: Present: full ROM, radial pulses palpable and symmetrical. Absent: tenderness - Back Exam Back exam: Present: full ROM, normal inspection. Absent: CVA tenderness (L), CVA tenderness (R), paraspinal tenderness, rash noted, tenderness, vertebral tenderness - Neurological Exam Neurological exam: Present: alert, altered, CN II-XII intact, motor sensory deficit, strengths equal and symetr throughout, speech deficit. Absent: no focal deficits, pronater drift, facial droop Additional comments: weakness in lower limbs bilat +3/5 - Psychiatric Psychiatric exam: Present: normal affect, normal mood. Absent: agitated, anxious, suicidal ideation Internal Med - H&P Results - Labs CBC & Chem 7: 04/16/18 17:50 04/16/18 17:50 Labs: Short CBC 04/16/18 Range/Units 17:50 WBC 15.1 H (4.3-11.1) K/mcL Hgb 15.4 (12.9-16.9) g/dL Hct 43.6 (37.5-50.1) % Plt Count 454 H (140-400) K/mcL Neutrophils # 10.8 H (1.6-8.9) K/mcL BMP 04/16/18 17:50 Sodium 133 L Potassium 4.8 Chloride 100 Carbon Dioxide 15 L BUN 86 H Creatinine 5.04 H Glucose 114 H Calcium 10.6 H Cardiac Enzymes 04/16/18 Range/Units 17:50 Troponin I 0.03 (< 0.04) ng/mL - Impressions ITS Impressions Head CT 04/16/18 17:49 IMPRESSION: No acute intracranial abnormality. D/ / Wes Bojorquez MD / Wes Bojorquez MD Interpreting Provider: Wes Bojorquez MD Chest X-Ray 04/16/18 17:50 IMPRESSION: No acute cardiopulmonary process. D/ / Houston Harris MD / Houston Harris MD Interpreting Provider: Houston Harris MD - Assessment and plan (1) Encephalopathy Current Visit: Yes Status: Acute Assessment and plan: Acute encephaolopathy today with decrease 2 months ago- at baseline pill rowing tremor: ataxia, confusion, and dysphasia. I have concern for stroke. - NPO - speech- swallow screen - PT/OT - social work - UDS - MRI head - Neurology consult for patient of Dr Morales - echo (2) Acute kidney injury Current Visit: No Status: Resolved Assessment and plan: SCr 5.04 and high anion map acidosis; etiology unclear with unknown baseline - IVF at 125 for 2L - after received 1 L in ED - CPK - Kidney US - hold lisinopril - nephrology consult (3) SIRS (systemic inflammatory response syndrome) Current Visit: Yes Status: Acute Assessment and plan: Tachycardia with leukocytosis with unclear source - UA - Lactic Acid - Chest Xray normal (4) Schizophrenia Current Visit: Yes Status: Acute Assessment and plan: currently stable; consult 1 A to advise on medications Qualifiers: Schizophrenia type: unspecified Qualified Code(s): F20.9 - Schizophrenia, unspecified (5) Back pain Current Visit: Yes Status: Acute Assessment and plan: as he is unable to describe his pain, r/o fx with X-ray CV TH-LB Qualifiers: Back pain location: back pain in unspecified location Qualified Code(s): M54.9 - Dorsalgia, unspecified (6) Hypertension Current Visit: No Status: Chronic Assessment and plan: holding lisinopril - start amlodipine Qualifiers: Hypertension type: essential hypertension Qualified Code(s): I10 - Essential (primary) hypertension (7) Diabetes mellitus Current Visit: No Status: Chronic Assessment and plan: hold metformin - start ISS Qualifiers: Diabetes mellitus type: type 2 Diabetes mellitus correctional officer chief insulin use: without correctional officer chief use Diabetes mellitus complication status: with hyperglycemia Qualified Code(s): E11.65 - Type 2 diabetes mellitus with hyperglycemia (8) DVT prophylaxis Current Visit: No Status: Acute Assessment and plan: heparin - Time Spent With Patient Total time spent is greater than 50% in coordination of care (as documented) at patient's floor/unit and/or counseling patient: Greater than 35 minutes <David Solano - Last Filed: 04/16/18 21:59> Date of Encounter: 04/16/18 Internal Medicine - H&P: HPI History of present illness: Mr. Walters is a 62 year old male All Systems PM: A 10-system review of systems was performed and is negative for pertinent findings except as documented above in the HPI. - Constitutional Vitals: Temp Pulse Resp BP Pulse Ox 97.5 F L 107 20 104/60 100 04/16/18 17:35 04/16/18 18:45 04/16/18 18:45 04/16/18 18:45 04/16/18 18:45 Internal Med - H&P Results - Labs CBC & Chem 7: 04/16/18 17:50 04/16/18 17:50 - Time Spent With Patient Total time spent is greater than 50% in coordination of care (as documented) at patient's floor/unit and/or counseling patient: - Attending Attestation Mr Walters is a 62 year old man with a history of coronary artery disease, hypertension, diabetes, schizophrenia and parkinsonism who is brought in today by his sister and [id number] with a complaint of frequent falling. The patient states that he has been falling over the past 24 hours and has a very unsteady gait and weak legs however information provided by his family members state that this has been increasingly progressive for over the past number of months and did not just started yesterday. Apparently he seeks care with the psychiatrist, neurologist and primary care physician however he lives alone at home and does not have care in spite of his ambulatory difficulties. His family members also states that he has been suffering from significant memory deficits in combination with his mobility issues. Information provided by the [id number] is that a few months ago he had a 45 minute episode of slurred speech which was concerning for TIA however medical attention was not sought. On arrival to the ER he was not in acute distress however he was borderline hypotensive at 86/49 with a heart rate of 118, saturating 95% on room air and a temperature of 97.5. He received 1 L of fluids. Lab work was remarkable for a leukocyte count of 15, and a serum creatinine of 5.04 with a bicarbonate of 15 which is nearly comparison to labs reviewed from a year ago. On my assessment he states that his intake has been poor. He also admits to increasing shortness of breath but he denies any chest pain episodes or diaphoresis. No fever or chills. Physical exam remarkable for an obese white male lying in bed in no acute distress, evidence of resting tremor, normal cardiac and lungs auscultation, non -tender abdomen and no signs of peripheral edema. His skin is pale and has dry mucous membranes. Currently afebrile. We will admit as stage III acute kidney injury with a high anion gap metabolic acidosis and as per delta delta ratio a concomitant non-anion gap metabolic acidosis. Etiology unclear however it may be a mixed picture of prerenal form poor volume as well as ATN from medications or prolonged hypoperfusion. Potassium within normal limits and no urgent indications for LAST CHALKER. Consult nephrology in the morning however for now we will continue IV fluid resuscitation with normal saline. We will obtain renal ultrasound as well. Will hold neuroleptic medications for now and ACEI. He is notably dehydrated with the calculated osmolality over 300 and will benefit from fluids. Mild hyponatremia likely from this. Continue amlodipine for HTN. Obtain echo and brain MRI. Neurology and psychiatry consultations advised. Leukocytosis is noted however there are no current signs of infection and it may be related to a hemoconcentrated state however we will continue to observe him clinically and serologically. For his unsteady gait we will consult PT for assessment and also social work for disposition planning as he cannot be cared for in his current state by himself. DVT prophylaxis with heparin subcutaneous. Code status noted. Rest of plan per residents note.
[2018-04-16] MEDS ORDERED: Naloxone 0.4 MG/ML INJ IVP PRN (21:02)
[2018-04-16] MEDS ORDERED: Ondansetron ODT 4 MG TAB.RAPDIS SL PRN (21:02)
[2018-04-16] MEDS ORDERED: Acetaminophen 325 MG TABLET PO PRN (21:02)
[2018-04-16] MEDS ORDERED: *HR* Dextrose 50 % in Water (Syg) 50 ML SYRINGE IVP PRN (21:54)
[2018-04-16] MEDS ORDERED: D5% in Water 1,000 ML IVC PRN (21:54)
[2018-04-16] MEDS ORDERED: Dextrose Gel 15 GM/37.5 ML TUBE PO PRN ×2 (21:54)
[2018-04-16] MEDS: 0.9 % Sodium Chloride 1,000 ML IVC SCH (23:26)
[2018-04-16] MEDS: Carbidopa/Levodopa 25/100 TABLET PO SCH (23:26)
[2018-04-16] MEDS: *HR* Heparin 5,000 UNIT/ML VIAL SQ SCH (23:26)
[2018-04-17 03:43] LABS: Bilirubin,Urine Negative (Negative); Blood,Urine Negative (Negative); Clarity,Urine Clear (Clear); Color,Urine Yellow (Yellow); Glucose,Urine (UA) Normal (Normal); Ketones,Urine Trace mg/dL (Negative); Leukocyte Esterase,Urine Negative (Negative); Nitrite,Urine Negative (Negative); PH,Urine 5.5 pH Units (5.0-8.0); Protein,Urine Negative (Neg-Trace); Specific Gravity,Urine 1.013 (1.010-1.025); Urobilinogen,Urine Normal (Normal)
[2018-04-17 05:08] LABS: Basophils # 0.1 K/mcL (0.0-0.2); Basophils % 0.5 %; Eosinophils # 0.1 K/mcL (0.0-0.6); Eosinophils % 1.1 %; Hematocrit 37.6 % (37.5-50.1); Hemoglobin 13.1 g/dL (12.9-16.9); Immature Granulocytes % 0.6 % (0-4); Lymphocytes # 1.5 K/mcL (0.6-4.6); Lymphocytes % 14.8 %; Mean Corpuscular HGB Conc 34.8 g/dL (31.6-35.5); Mean Corpuscular Hemoglobin 24.9 pg (28.0-33.3); Mean Corpuscular Volume 71.3 fL (83.0-100.0); Monocytes # 1.4 K/mcL (0.0-1.3); Neutrophils # 7.1 K/mcL (1.6-8.9); Platelet Count 374 K/mcL (140-400); Red Blood Count 5.27 M/mcL (4.19-5.50); Red Cell Distribution Width 14.6 % (11.5-14.5)
[2018-04-17 05:12] LABS: INR 1.2; Prothrombin Time 13.9 Seconds (9.4-12.1)
[2018-04-17 05:28] LABS: Albumin/Globulin Ratio 1.6 (1.1-2.2); Bilirubin,Direct 0.2 mg/dL (0.0-0.2); Bilirubin,Indirect 0.8 mg/dL (0.0-1.2); Globulin 2.5 g/dL (2.4-3.5); Total Protein 6.5 g/dL (6.4-8.9)
[2018-04-17 05:31] LABS: Calcium 9.2 mg/dL (8.6-10.3); Potassium 3.8 mEq/L (3.5-5.1)
[2018-04-17 05:43] LABS: Thyroid Stimulating Hormone 1.933 mcIU/mL (0.340-5.600)
[2018-04-17] MEDS: *HR* Heparin 5,000 UNIT/ML VIAL SQ SCH ×3 (06:41→20:40)
[2018-04-17] MEDS: 0.9 % Sodium Chloride 1,000 ML IVC SCH ×5 (06:44→20:45)
[2018-04-17] MEDS: Insulin LISPRO 300 UNITS/3 ML VIAL SQ SCH ×3 (08:44→16:40)
[2018-04-17] MEDS ORDERED: amLODIPine 5 MG TABLET PO SCH (09:00)
--- NOTE | 2018-04-17 09:39 | Internal Med Progress Note ---
<HenryJuan Carlos S - Last Filed: 04/17/18 09:35> Hospitalist Progress Note - Encounter Date of Encounter: 04/17/18 Time of Encounter: 09:35 - Subjective Interval History: The pt is seen at bedside. He is a 62yo male with PMH of DM, schizophrenia, and pill rolling tremor presented after fall with difficultly walking and confusion. The pt is a poor historian and doesn't answer questions appropriately at all times. He seems to be unable to focus for long periods of time. He told the night resident he was having difficulty swallowing and had one episode of vomiting yeserday. He reports to me that he has falls quite frequently and has fallen 5-6x in the last ear. He reportedly passed out yesterday and that is why he came to the hospital. He is unsure of how long he was down for but reports that he was very confused afterwards and his neighbors found him. In the ER he was found to have t 97.5, BP 86/49 and HR 118. He was given IVF and his vitals improved to HR 107, BP 104/60. -labs in the ER showed a creatinine 0f 5.04, WBC 15.1 and Na of 133 He has a hx of schizophrenia with visual and auditory delusions and a hx of SI, admitted to 1A after attempt. At this time the pt denies SI and doesn't appear to be reacting to internal stimuli. He has c/o urinary retention this morning. He is unable to urinate and states this has never happened before to him. Asked nurse to put catheter in. - Exam Vitals: Temp Pulse Resp BP Pulse Ox 97.2 F L 90 18 112/74 98 04/17/18 07:13 04/17/18 07:13 04/17/18 07:13 04/17/18 07:13 04/17/18 07:13 Exam: general - discheveled, appears to be unbathed cardio - rrr, s1s2 cta lungs - ctab, no wheeze abd - nondistended, obese abd, tender to palpation in periumbilical region extremities - no edema skin - intact psych - difficulty focusing, easily distracted - Assessment and Plan (1) Acute kidney injury Current Visit: Yes Status: Acute Assessment and Plan: Pt presented with Serum creatinine 5.04, today it is 4.49. Baseline of 0.9-1.2 -had anion gap metabolic acidosis with unknown etiology; maybe 2/2 lactic acid production after fall/rhabdomyolysis? -creatinine kinase 1607 -BUN 86 ---> 84 today UA negative for infxn Plan: -continue IVF at 125cc/hr -bladder scan pending -nephrology consulted -hold nephrotoxic agents, lisinopril held -kidney ultrasound pending -monitor kindey fxn -strict I&O's (2) Rhabdomyolysis Current Visit: Yes Status: Acute Assessment and Plan: Pt reports falling, down for unknown amount of time -pt has had multiple falls in the last year, says between 5 and 6 -neighbors found him w/ AMS, confusion. Pt is poor historian and doesn't remember much Workup for fall was negative -thoracic spine xay - no acute abnormality -lumbar spine showed degenerative changes, recommend CT evaluation for facet injury -cervical spine showed no acute fx from c1-7 -head CT negative for acute intracranial abnormality Creatinine kinase 1607 Spindraw Operator 5.04 on admission ---> 4.49 BUN 86 ---> 88 Plan: -continue aggressive IV hydration, 125cc/hr NS -monitor renal fxn -neprhology consulted -catheter placed -bladder scan and renal US pending -strict I&O's -NPO except medications (3) SIRS (systemic inflammatory response syndrome) Current Visit: Yes Status: Resolved Assessment and Plan: Resolved. On admission pt had tacycardia with leukocyosis -WBC count has resolved , is at 10.3. Was most likely 2/2 hemoconcentration -HR 90 -afebrile Lactic acid of 1 UA negative for infxn CXR showed no acute cardiopulmonary process Plan: -continue to monitor clinically (4) Hypertension Current Visit: No Status: Chronic Assessment and Plan: BP toda 112/74 -adequate control -on home Lisinopril, which is held 2/2 nephrotoxicity -started on amlodipine 5mg PO daily (5) DVT prophylaxis Current Visit: Yes Status: Acute Assessment and Plan: SQ heparin 5000U (6) Diabetes mellitus Current Visit: No Status: Chronic Assessment and Plan: Metformin held -insulin sliding scale -glucose this AM 108 (7) Schizophrenia Current Visit: No Status: Chronic Assessment and Plan: Currently stable, denies SI. Not appearing to react to internal stimuli -consulted psych for med recommendations -pt is on aripirazole (8) Parkinson disease Current Visit: No Status: Chronic Assessment and Plan: Pt is on carbidopa/levodopa, benztropine -pt exhibits tremor - Time Spent with Patient Total time spent is greater than 50% in coordination of care (as documented) at patient's floor/unit and/or counseling patient: less than 15 minutes Plan of Care Discussed with: patient Internal Medicine: Result - Labs CBC & Chem 7: 04/17/18 04:32 04/17/18 04:32 Labs: Short CBC 04/17/18 Range/Units 04:32 WBC 10.3 (4.3-11.1) K/mcL Hgb 13.1 D (12.9-16.9) g/dL Hct 37.6 (37.5-50.1) % Plt Count 374 (140-400) K/mcL Neutrophils # 7.1 (1.6-8.9) K/mcL BMP 04/17/18 04:32 Sodium 135 L Potassium 3.8 Chloride 106 Carbon Dioxide 14 L BUN 88 H Creatinine 4.49 H Glucose 108 H Calcium 9.2 Liver Function 04/17/18 Range/Units 04:32 Total Bilirubin 1.0 (0.3-1.0) mg/dL Direct Bilirubin 0.2 (0.0-0.2) mg/dL AST 61 H (13-39) Units/L ALT 4 L (7-52) Units/L Alkaline Phosphatase 45 (34-104) Units/L Albumin 4.0 (3.5-5.7) g/dL Urine 04/17/18 Range/Units 03:25 Urine Color Yellow (Yellow) Urine Clarity Clear (Clear) Urine pH 5.5 (5.0-8.0) pH Units Ur Specific [place] 1.013 (1.010-1.025) Urine Protein Negative (Neg-Trace) mg/dL Urine Glucose (UA) Normal (Normal) mg/dL - ABG Interpretation ABG results: PT/INR, D-dimer PT 13.9 Seconds (9.4-12.1) H 04/17/18 04:32 Consult Discharge Plan - Plan Referrals: Josefina Navarro MD [Primary Care Provider] - <Juanito Henson - Last Filed: 04/17/18 11:59> Hospitalist Progress Note - Encounter Date of Encounter: 04/17/18 - Exam Vitals: Temp Pulse Resp BP Pulse Ox 97.4 F L 93 18 145/88 97 04/17/18 11:42 04/17/18 11:42 04/17/18 11:42 04/17/18 11:42 04/17/18 11:42 - Assessment and Plan (1) Acute kidney injury Current Visit: Yes Status: Acute (2) Diabetes mellitus Current Visit: No Status: Chronic (3) Rhabdomyolysis Current Visit: Yes Status: Acute (4) SIRS (systemic inflammatory response syndrome) Current Visit: Yes Status: Resolved (5) Hypertension Current Visit: No Status: Chronic (6) DVT prophylaxis Current Visit: Yes Status: Acute (7) Schizophrenia Current Visit: No Status: Chronic (8) Parkinson disease Current Visit: No Status: Chronic - Time Spent with Patient Total time spent is greater than 50% in coordination of care (as documented) at patient's floor/unit and/or counseling patient: Internal Medicine: Result - Labs CBC & Chem 7: 04/17/18 04:32 04/17/18 04:32 Labs: Short CBC 04/17/18 Range/Units 04:32 WBC 10.3 (4.3-11.1) K/mcL Hgb 13.1 D (12.9-16.9) g/dL Hct 37.6 (37.5-50.1) % Plt Count 374 (140-400) K/mcL Neutrophils # 7.1 (1.6-8.9) K/mcL BMP 04/17/18 04:32 Sodium 135 L Potassium 3.8 Chloride 106 Carbon Dioxide 14 L BUN 88 H Creatinine 4.49 H Glucose 108 H Calcium 9.2 Liver Function 04/17/18 Range/Units 04:32 Total Bilirubin 1.0 (0.3-1.0) mg/dL Direct Bilirubin 0.2 (0.0-0.2) mg/dL AST 61 H (13-39) Units/L ALT 4 L (7-52) Units/L Alkaline Phosphatase 45 (34-104) Units/L Albumin 4.0 (3.5-5.7) g/dL Urine 04/17/18 Range/Units 03:25 Urine Color Yellow (Yellow) Urine Clarity Clear (Clear) Urine pH 5.5 (5.0-8.0) pH Units Ur Specific [place] 1.013 (1.010-1.025) Urine Protein Negative (Neg-Trace) mg/dL Urine Glucose (UA) Normal (Normal) mg/dL - ABG Interpretation ABG results: PT/INR, D-dimer PT 13.9 Seconds (9.4-12.1) H 04/17/18 04:32 - Attending Attestation I have seen and examined this patient independently. I have discussed with resident physician Dr. Henry regarding the management plan. Agree with the documentation. <Juan Carlos Henry S - Last Filed: 04/17/18 09:35> (4) Hypertension Qualifiers: Hypertension type: essential hypertension Qualified Code(s): I10 - Essential (primary) hypertension (6) Diabetes mellitus Qualifiers: Diabetes mellitus type: type 2 Diabetes mellitus flight steward insulin use: without flight steward use Diabetes mellitus complication status: with hyperglycemia Qualified Code(s): E11.65 - Type 2 diabetes mellitus with hyperglycemia (7) Schizophrenia Qualifiers: Schizophrenia type: unspecified Qualified Code(s): F20.9 - Schizophrenia, unspecified <Juanito Henson - Last Filed: 04/17/18 11:59> (2) Diabetes mellitus Qualifiers: Diabetes mellitus type: type 2 Diabetes mellitus flight steward insulin use: without flight steward use Diabetes mellitus complication status: with hyperglycemia Qualified Code(s): E11.65 - Type 2 diabetes mellitus with hyperglycemia (5) Hypertension Qualifiers: Hypertension type: essential hypertension Qualified Code(s): I10 - Essential (primary) hypertension (7) Schizophrenia Qualifiers: Schizophrenia type: unspecified Qualified Code(s): F20.9 - Schizophrenia, unspecified
[2018-04-17] MEDS: ARIPiprazole 10 MG TABLET PO SCH (09:57)
[2018-04-17] MEDS: Carbidopa/Levodopa 25/100 TABLET PO SCH ×3 (09:57→20:40)
[2018-04-17] MEDS: Aspirin Enteric Coated 81 MG Tablet PO SCH (09:57)
--- NOTE | 2018-04-17 10:03 | Nephrology Consult Note ---
Date of Encounter: 04/17/18 Time of Encounter: 10:30 Assessment and Plan (1) Acute kidney injury Current Visit: Yes Status: Acute Suspect prerenal and / or post renal. Pending renal U/S but he has an inc'd risk for urinary retention related to his Psych meds. Continue Volume expansion, which has helped thus far (the eGFR is improving) and will also help with the very mild Rhabd. Continue to follow a renal conservative/protective strategy, which again is helping, and so he will not requiring the invasive option of starting HD today. Thank you for consulting the [facility] group. Will continue to follow with you. (2) Rhabdomyolysis Current Visit: Yes Status: Acute Very mild with CK in the 1000 range. Qualifiers: Rhabdomyolysis type: non-traumatic Qualified Code(s): M62.82 - Rhabdomyolysis History of Present Illness - Reason for Consult Consult date: 04/17/18 Acute Kidney Injury Requesting physician: David Solano - Chief Complaint MIGUELANGEL - History of Present Illness Moshe Walters is a very pleasant 62 y/o WM with a pmh of mental health condition and et al who presented with worsening renal function. He denied frequent use of NSAIDs, but only a rare occasion would he take an IBU, he said. None recently. He denied recent IV contrast exposures or any FHx of ESRD. He affirmed having some difficulty emptying his bladder from time to time. He did not affirm urinary changes such as gross hematuria, frothy appearance or dysuria. No prior renal stones, he said. Of note, he mentioned several times he has a great counselor who would have all his records. Past Med Surg Social Fam HX - Past Medical History Medical history: asthma, coronary artery disease, diabetes, hypertension, myocardial infarction, other Additional medical history: pt states he has depression and paranoid schizophrenia Psychiatric history: depression, schizophrenia - Past Surgical History Surgical History: angioplasty/stent, other Additional surgical history: Carpal tunnel. - Social History Smoking Status: Never smoker Smokeless Tobacco Status: No Alcohol use: rarely Drug use: none - Family History Mother Adopted: No Family Member Ethnicity: Non- Living Status: Hx Family Cardiac Disorders: No Hx Family Respiratory Disorders: No Hx Family Cancer: No Hx Family GI Disorders: No Hx Family Endocrine Disorder: No Hx Family Neuromuscular Disorders: No Hx Family Neurologic Disorders: No Hx Family HEENT Disorders: No Hx Family Autoimmune Disorders: No Father Family Member Ethnicity: Non- Living Status: Hx Family Cardiac Disorders: Yes Hx Family Respiratory Disorders: Yes Hx Family Cancer: No Hx Family GI Disorders: No Hx Family Endocrine Disorder: No Hx Family Neuromuscular Disorders: No Hx Family Neurologic Disorders: No Hx Family HEENT Disorders: No Hx Family Autoimmune Disorders: No Medications and Allergies Aspirin [Lo-Dose Aspirin EC] 81 mg PO DAILY 01/03/17 [History] Multivitamin [One Daily Essential] 1 tab PO DAILY 01/03/17 [History] ARIPiprazole [Abilify] 10 mg PO DAILY #30 tablet 01/09/17 [Rx] Benztropine Mesylate 2 mg PO BID 04/16/18 [History] BuPROPion SR (12 HR) [Wellbutrin SR] 150 mg PO BID 04/16/18 [History] Carbidopa/Levodopa 25/100 [Sinemet 25/100] 1 tab PO TID 04/16/18 [History] Lisinopril-HCTZ 20-12.5 [Prinzide 20-12.5] 1 tab PO BID 04/16/18 [History] Metformin HCl 1,000 mg PO BID 04/16/18 [History] hydrOXYzine HCl [Hydroxyzine HCl] 25 mg PO Q6H PRN 04/16/18 [History] traZODone [TraZODone] 50 - 100 mg PO HS 04/16/18 [History] 3 Allergy/AdvReac Type Severity Reaction Status Date / Time esomeprazole [From Nexium] Allergy Rash Verified 01/03/17 09:30 Cyclobenzaprine AdvReac Hypotension Verified 01/03/17 09:30 [From Flexeril] Review of Systems All Systems: reviewed and no additional remarkable complaints except as stated Exam - Vital Signs Vital signs: Initial Vital Signs Temp Pulse Resp BP Pulse Ox 97.5 F L 118 18 86/49 95 04/16/18 17:31 04/16/18 17:31 04/16/18 17:31 04/16/18 17:31 04/16/18 17:31 Vital Signs - Last 8 Hours Temp Pulse Resp BP Pulse Ox 04/17/18 07:13 97.2 F L 90 18 112/74 98 04/17/18 03:55 98.2 F 104 17 93/58 94 Intake and Output 04/16/18 04/17/18 04/17/18 23:59 07:59 15:59 Intake Total 0 / 1000 1000 / 1000 0 / 0 Output Total 950 / 950 Balance 0 / 1000 1000 / 1000 -950 / -950 Intake: IV Fluids 1000 / 1000 0.9 % Sodium Chloride 1,000 ML 1000 / 1000 @ 125 mls/hr IVC .Q8H JARRET Rx#: [id number] Oral 0 / 0 0 / 0 Output: Catheter 950 / 950 Other: Meal Breakfast Percent of Meal Consumed 0% Weight 86.6 kg Blood Glucose* 73 Patient Weight 04/17/18 23:59 Weight 86.6 kg - General Appearance Exam: General appearance: Present: well-developed, well-nourished, appears started age , obese EENT: Present: ATNC, PERRL, mucous membranes moist Respiratory: Present: clear Cardiology: Present: edema (trace pedal edema b/l ), regular rate, normal S1, normal S2 Gastrointestinal: Present: normoactive bowel sounds, no tenderness, no guarding Integumentary: Present: no rash, warm and dry Neurologic: Present: no focal deficit, no asterixis, alert and oriented x3 Additional Comments: noticeable intention tremor his hands b/l Musculoskeletal: Present: no deformities, no erythema, no cyanosis Psychiatric: Present: mood/affect appropriate, cooperative Results - Lab Results 04/18/18 03:25 04/18/18 03:25 Most recent lab results Calcium 9.2 mg/dL (8.6-10.3) 04/17/18 04:32 I reviewed the labs, vitals, imaging (which is pending), progress notes and med lists. Consult Discharge Plan - Plan Referrals: Josefina Navarro MD [Primary Care Provider] -
[2018-04-17] MEDS ORDERED: Perflutren Lipid Microsphere 1.3 ML in 0.9 % Sodium Chloride 8.7 ML IVP ONE (11:05)
[2018-04-17] MEDS ORDERED: Perflutren Lipid Microsphere 2 ML VIAL ONE (11:09)
--- NOTE | 2018-04-17 11:47 | Consult Note ---
Date of Encounter: 04/17/18 Time of Encounter: 11:40 Assessment & Recommendation (1) Encephalopathy Current visit: Yes Status: Acute Assessment & Recommendation: Client seems to think he has been on Abilify a long time and denies issues with this medication. Continues to experience AH but seems to deal with these at his baseline. Denies SI/HI. He does take a high dose of Cogentin. Doubt this high dose is needed for Abilify alone. Since it is so anticholinergic may want to cut back on dose to see if it helps with urinary retention and kidney issues. Could start by going down to 1mg at a time and see how he tolerates it. Unclear what specific procedure capacity assessment was for but client seems to want to know why he is ill and was cooperating with an ultrasound when this conventional underwriter was present. (2) Schizophrenia Current visit: Yes Status: Acute Qualifiers: Schizophrenia type: unspecified Qualified Code(s): F20.9 - Schizophrenia, unspecified History of Present Illness Requesting Physician: David Solano MD Reason for consult: Medication recommendation/capacity assessment History of present illness: Mr. Walters is a 62 year old male who was admitted secondary to recent falls at home. Multiple medical problems including some renal failure. Diagnosed with Schizophrenia and takes Abilify and Cogentin. History of suicidal ideation and inpatient hospitalizations but client denies SI at this time. Lives alone but has support from neighbors. Already linked with mental health services. Client is not a very good historian but believes he has been on his current medication regimen for a long time and denies any problems with the medications he takes. He is on a very high dose of Cogentin. Doubt he needs this high of a dose for just 10mg of Abilify. Since Cogentin is highly anticholinergic it may be contributing to urinary retention and kidney issues. On eval today client is pleasant and while speaking with this conventional underwriter he was cooperating with an ultrasound. Client indicated he is willing to do what it takes to find out why he is feeling ill and falling at home. Unclear what medical procedure client needs his capacity assessed for but he seems to understand why assessments are taking place and willing to comply at this time. CC: David Solano MD Past Med Surg Social Fam HX - Past Medical History Medical history: asthma, coronary artery disease, diabetes, hypertension, myocardial infarction, other - Past Psychiatric History Psychiatric history: Reports: depression, prior suicide attempt, schizophrenia, previous psychiatric hospitalization Family psychiatric history: Unknown Family History of Suicide: Unknown - Past Surgical History Surgical History: angioplasty/stent, other - Social History Smoking Status: Never smoker Smokeless Tobacco Status: No Alcohol use: rarely Drug use: none - Family History Mother Adopted: No Family Member Ethnicity: Non- Living Status: Hx Family Cardiac Disorders: No Hx Family Respiratory Disorders: No Hx Family Cancer: No Hx Family GI Disorders: No Hx Family Endocrine Disorder: No Hx Family Neuromuscular Disorders: No Hx Family Neurologic Disorders: No Hx Family HEENT Disorders: No Hx Family Autoimmune Disorders: No Father Family Member Ethnicity: Non- Living Status: Hx Family Cardiac Disorders: Yes Hx Family Respiratory Disorders: Yes Hx Family Cancer: No Hx Family GI Disorders: No Hx Family Endocrine Disorder: No Hx Family Neuromuscular Disorders: No Hx Family Neurologic Disorders: No Hx Family HEENT Disorders: No Hx Family Autoimmune Disorders: No Medications & Allergies Aspirin [Lo-Dose Aspirin EC] 81 mg PO DAILY 01/03/17 [History] Multivitamin [One Daily Essential] 1 tab PO DAILY 01/03/17 [History] ARIPiprazole [Abilify] 10 mg PO DAILY #30 tablet 01/09/17 [Rx] Benztropine Mesylate 2 mg PO BID 04/16/18 [History] BuPROPion SR (12 HR) [Wellbutrin SR] 150 mg PO BID 04/16/18 [History] Carbidopa/Levodopa 25/100 [Sinemet 25/100] 1 tab PO TID 04/16/18 [History] Lisinopril-HCTZ 20-12.5 [Prinzide 20-12.5] 1 tab PO BID 04/16/18 [History] Metformin HCl 1,000 mg PO BID 04/16/18 [History] hydrOXYzine HCl [Hydroxyzine HCl] 25 mg PO Q6H PRN 04/16/18 [History] traZODone [TraZODone] 50 - 100 mg PO HS 04/16/18 [History] 3 Allergy/AdvReac Type Severity Reaction Status Date / Time esomeprazole [From Nexium] Allergy Rash Verified 01/03/17 09:30 Cyclobenzaprine AdvReac Hypotension Verified 01/03/17 09:30 [From Flexeril] Review of Systems Constitutional: Reports: weakness Eyes: Denies: eye pain, vision change Ears, Nose, Throat: Denies: ear pain, throat pain, dental pain, hearing loss, congestion Cardiovascular: Denies: chest pain, palpitations, dyspnea on exertion Respiratory: Denies: cough, dyspnea, wheezes Gastrointestinal: Reports: nausea, vomiting Genitourinary male: Reports: other Musculoskeletal: Reports: other Integumentary: Denies: rash, lesions, pruritus Neurological: Reports: weakness, other Endocrine: Denies: fatigue, heat or cold intolerance Hematologic/Lymphatic: Denies: easy bruising, lymphadenopathy Allergic/Immunologic: Denies: urticaria, itchy eyes Psychiatry Exam - Constitutional Vitals: Temp Pulse Resp BP Pulse Ox 97.2 F L 90 18 112/74 98 04/17/18 07:13 04/17/18 07:13 04/17/18 07:13 04/17/18 07:13 04/17/18 07:13 General appearance: disheveled - Musculoskeletal Gait: other Station: shaky Strength & Tone: cog wheel - Psychiatric Patient Orientation: Yes Person, Yes Time, Yes Place Level of alertness: Alert Behavior: calm, cooperative Psychomotor activity: Increased Eye Contact: Maintains Eye Contact Mood Description: Euthymic/stable Affect description: congruent with mood Speech Volume: Normal Speech pattern: normal rate, normal rhythm, normal tone, fluent, spontaneous Language & Vocabulary: consistent with education Thought Process: Linear Thought Content: No Suicidal ideation, No Homicidal ideation, No Overt delusions Perceptual Disturbances: Yes Auditory hallucinations Attention Span Ability: Capable of Focused Attention Memory Description: Grossly Intact Patient Reliability: Questionable Historian Fund of knowledge: Yes abstraction ability, Yes aware of current events Intelligence Estimate: Average Judgment: Fair Insight: Partial Results - Labs Labs: Laboratory Last Values WBC 10.3 K/mcL (4.3-11.1) 04/17/18 04:32 RBC 5.27 M/mcL (4.19-5.50) 04/17/18 04:32 Hgb 13.1 g/dL (12.9-16.9) D 04/17/18 04:32 Hct 37.6 % (37.5-50.1) 04/17/18 04:32 MCV 71.3 fL (83.0-100.0) L 04/17/18 04:32 MCH 24.9 pg (28.0-33.3) L 04/17/18 04:32 MCHC 34.8 g/dL (31.6-35.5) 04/17/18 04:32 RDW 14.6 % (11.5-14.5) H 04/17/18 04:32 Plt Count 374 K/mcL (140-400) 04/17/18 04:32 MPV 8.0 fL (9.4-12.4) L 04/17/18 04:32 Immature Gran % 0.6 % (0-4) 04/17/18 04:32 Seg Neutrophils % 69.0 % 04/17/18 04:32 Lymphocytes % 14.8 % 04/17/18 04:32 Monocytes % 14.0 % 04/17/18 04:32 Eosinophils % 1.1 % 04/17/18 04:32 Basophils % 0.5 % 04/17/18 04:32 Neutrophils # 7.1 K/mcL (1.6-8.9) 04/17/18 04:32 Lymphocytes # 1.5 K/mcL (0.6-4.6) 04/17/18 04:32 Monocytes # 1.4 K/mcL (0.0-1.3) H 04/17/18 04:32 Eosinophils # 0.1 K/mcL (0.0-0.6) 04/17/18 04:32 Basophils # 0.1 K/mcL (0.0-0.2) 04/17/18 04:32 PT 13.9 Seconds (9.4-12.1) H 04/17/18 04:32 INR 1.2 04/17/18 04:32 Sodium 135 mEq/L (136-145) L 04/17/18 04:32 Potassium 3.8 mEq/L (3.5-5.1) 04/17/18 04:32 Chloride 106 mEq/L (98-107) 04/17/18 04:32 Carbon Dioxide 14 mEq/L (23-29) L 04/17/18 04:32 BUN 88 mg/dL (8-23) H 04/17/18 04:32 Creatinine 4.49 mg/dL (0.70-1.30) H 04/17/18 04:32 Est GFR ( Amer) 16 (> 60) L 04/17/18 04:32 Est GFR (Non-Af Amer) 13 (> 60) L 04/17/18 04:32 BUN/Creatinine Ratio 20 (6-26) 04/17/18 04:32 Glucose 108 mg/dL (70-105) H 04/17/18 04:32 POC Glucose 85 mg/dL (70-99) 04/17/18 00:32 Calculated Osmolality 307 (280-300) H 04/17/18 04:32 Lactic Acid 1.0 mmol/L (0.5-2.2) 04/16/18 22:55 Calcium 9.2 mg/dL (8.6-10.3) 04/17/18 04:32 Total Bilirubin 1.0 mg/dL (0.3-1.0) 04/17/18 04:32 Direct Bilirubin 0.2 mg/dL (0.0-0.2) 04/17/18 04:32 Indirect Bilirubin 0.8 mg/dL (0.0-1.2) 04/17/18 04:32 AST 61 Units/L (13-39) H 04/17/18 04:32 ALT 4 Units/L (7-52) L 04/17/18 04:32 Alkaline Phosphatase 45 Units/L (34-104) 04/17/18 04:32 Creatine Kinase 1607 Units/L (30-223) H 04/16/18 17:50 Troponin I 0.03 ng/mL (< 0.04) 04/16/18 17:50 Serum Total Protein 6.5 g/dL (6.4-8.9) 04/17/18 04:32 Albumin 4.0 g/dL (3.5-5.7) 04/17/18 04:32 Globulin 2.5 g/dL (2.4-3.5) 04/17/18 04:32 Albumin/Globulin Ratio 1.6 (1.1-2.2) 04/17/18 04:32 Triglycerides 81 mg/dL (< 150) 04/17/18 04:32 Cholesterol 116 mg/dL (< 200) 04/17/18 04:32 LDL Cholesterol, Calc 71 mg/dL (0-99) 04/17/18 04:32 VLDL Cholesterol, Calc 16 mg/dL (< 31) 04/17/18 04:32 HDL Cholesterol 29 mg/dL (40-59) L 04/17/18 04:32 Cholesterol/HDL Ratio 4.0 (0-4.9) 04/17/18 04:32 TSH 1.933 mcIU/mL (0.340-5.600) 04/17/18 04:32 Urine Color Yellow (Yellow) 04/17/18 03:25 Urine Clarity Clear (Clear) 04/17/18 03:25 Urine pH 5.5 pH Units (5.0-8.0) 04/17/18 03:25 Ur Specific [place] 1.013 (1.010-1.025) 04/17/18 03:25 Urine Protein Negative mg/dL (Neg-Trace) 04/17/18 03:25 Urine Glucose (UA) Normal mg/dL (Normal) 04/17/18 03:25 Urine Ketones Trace mg/dL (Negative) H 04/17/18 03:25 Urine Blood Negative (Negative) 04/17/18 03:25 Urine Nitrite Negative (Negative) 04/17/18 03:25 Urine Bilirubin Negative (Negative) 04/17/18 03:25 Urine Urobilinogen Normal mg/dL (Normal) 04/17/18 03:25 Ur Leukocyte Esterase Negative (Negative) 04/17/18 03:25 Ur Culture Indicated? NO (NO) 04/17/18 03:25 Consult Discharge Plan - Plan Referrals: Josefina Navarro MD [Primary Care Provider] -
--- NOTE | 2018-04-17 13:11 | Neurology - Consult Note ---
Date of Encounter: 04/17/18 Time of Encounter: 13:11 Assessment and Plan (1) Encephalopathy Current Visit: Yes Status: Acute This patient who has an history of multiple medical conditions as well as schizophrenia on high doses of Cogentin as well as on Abilify also has tremors and some features of parkinsonism but not typical idiopathic Parkinson disease symptoms are likely related to chronic neuroleptic use and it is not due to typical Parkinson disease certainly tremors and difficulty with gait and balance could be related to it. At the same time with his acute renal failure along with other metabolic abnormalities have caused his confusion which seems to be better now. No evidence of any acute stroke on exam or on the CT scan. No evidence of any seizure on history. At the moment from neurology standpoint patient is a stable I would suggest that we should continue to treat his underlying metabolic abnormalities especially his renal function keep him hydrated and at just medication accordingly. For his tremors would not recommend any medication at this time he has been evaluated by me as an outpatient will see him back after his discharge and make discission regarding any other treatment option for these tremors. May benefit from physical therapy evaluation as he remain at risk for fall and benefit from gait and balance training exercises Other treatment is as per primary team (2) Frequent falls Current Visit: Yes Status: Acute (3) History of schizophrenia Current Visit: Yes Status: Acute (4) Acute renal failure Current Visit: Yes Status: Acute Qualifiers: Acute renal failure type: unspecified Qualified Code(s): N17.9 - Acute kidney failure, unspecified History of Present Illness HPI: Mr. Walters is a 62 year old male with hx DM, schizophrenia, and pill rolling tremor presented after fall with difficultly walking and confusion. He is poor historian but describes a unwitnessed fall yesterday with out clear memory of event and since then he has had difficult focusing and speaking. Patient has seen me as an outpatient with the concern of parkinsonism or symptoms are likely related to underlying chronic neuroleptic use. He is been using a cane for some time and also noted to have slurred speech at times. He has had 5-6 falls this year with the worse 6 months ago when he hit his head. he reports 50 lb unintentional weight loss since August. He has significant psychiatric history of schizophrenia whit visual and auditory delusion - He has been hospitalized in 1 A after 2 suicide attempted - he denies suicidal ideas at this time. for his Schizophrenia he takes Abilify and Cogentin. He is on a high dose of Cogentin. Past Med Surg Social Fam HX - Past Medical History Medical history: asthma, coronary artery disease, diabetes, hypertension, myocardial infarction, other Additional medical history: pt states he has depression and paranoid schizophrenia Psychiatric history: depression, prior suicide attempt, schizophrenia, previous psychiatric hospitalization - Past Surgical History Surgical History: angioplasty/stent, other Additional surgical history: Carpal tunnel. - Social History Smoking Status: Never smoker Smokeless Tobacco Status: No Alcohol use: rarely Drug use: none - Family History Mother Adopted: No Family Member Ethnicity: Non- Living Status: Hx Family Cardiac Disorders: No Hx Family Respiratory Disorders: No Hx Family Cancer: No Hx Family GI Disorders: No Hx Family Endocrine Disorder: No Hx Family Neuromuscular Disorders: No Hx Family Neurologic Disorders: No Hx Family HEENT Disorders: No Hx Family Autoimmune Disorders: No Father Family Member Ethnicity: Non- Living Status: Hx Family Cardiac Disorders: Yes Hx Family Respiratory Disorders: Yes Hx Family Cancer: No Hx Family GI Disorders: No Hx Family Endocrine Disorder: No Hx Family Neuromuscular Disorders: No Hx Family Neurologic Disorders: No Hx Family HEENT Disorders: No Hx Family Autoimmune Disorders: No Medications and Allergies Aspirin [Lo-Dose Aspirin EC] 81 mg PO DAILY 01/03/17 [History] Multivitamin [One Daily Essential] 1 tab PO DAILY 01/03/17 [History] ARIPiprazole [Abilify] 10 mg PO DAILY #30 tablet 01/09/17 [Rx] Benztropine Mesylate 2 mg PO BID 04/16/18 [History] BuPROPion SR (12 HR) [Wellbutrin SR] 150 mg PO BID 04/16/18 [History] Carbidopa/Levodopa 25/100 [Sinemet 25/100] 1 tab PO TID 04/16/18 [History] Lisinopril-HCTZ 20-12.5 [Prinzide 20-12.5] 1 tab PO BID 04/16/18 [History] Metformin HCl 1,000 mg PO BID 04/16/18 [History] hydrOXYzine HCl [Hydroxyzine HCl] 25 mg PO Q6H PRN 04/16/18 [History] traZODone [TraZODone] 50 - 100 mg PO HS 04/16/18 [History] 3 Allergy/AdvReac Type Severity Reaction Status Date / Time esomeprazole [From Nexium] Allergy Rash Verified 01/03/17 09:30 Cyclobenzaprine AdvReac Hypotension Verified 01/03/17 09:30 [From Flexeril] All Systems: The remainder of the systems were reviewed and are negative Physical Examination - Vital Signs Vital Signs: Initial Vital Signs Temp Pulse Resp BP Pulse Ox 97.5 F L 118 18 86/49 95 04/16/18 17:31 04/16/18 17:31 04/16/18 17:31 04/16/18 17:31 04/16/18 17:31 - Constitutional General appearance: comfortable - Neurologic Sensorimotor examination: intact Detailed motor examination: grossly full strength in all extremities, full strength in all major muscle groups Detailed sensory examination: intact Reflexes: Biceps: 1+, Triceps: 1+, Brachioradialis: 1+, Patella: 1+, Achilles: 1 + Mental Status Examination: awake, alert, oriented to person, oriented to place, oriented to time, follows commands appropriately, answers questions appropriately, no agnosia, no aphasia, no aproxia Cranial nerve examination: PERRL, EOMI, visual logan intact, corneal reflexes brisk symmetrically, sensory to face intact, mastication intact, no facial asymmetry is present, no dysarthria, hearing is intact symmetrically, soft palate elevates bilaterally upon phonation, gag reflex intact, flexes SCM and trapezius muscles symmetrically with full power, tongue protrudes midline, no atrophy or facial fasiculations present Tremor: right upper extremity (Patient has mild cogwheeling and also has some action related tremors more on the right than on the left without any focal motor weakness) Results - Laboratory Findings CBC and BMP: 04/17/18 04:32 04/17/18 04:32 Abnormal lab findings: Abnormal lab results MCV 71.3 fL (83.0-100.0) L 04/17/18 04:32 MCH 24.9 pg (28.0-33.3) L 04/17/18 04:32 RDW 14.6 % (11.5-14.5) H 04/17/18 04:32 MPV 8.0 fL (9.4-12.4) L 04/17/18 04:32 Monocytes # 1.4 K/mcL (0.0-1.3) H 04/17/18 04:32 PT 13.9 Seconds (9.4-12.1) H 04/17/18 04:32 Sodium 135 mEq/L (136-145) L 04/17/18 04:32 Carbon Dioxide 14 mEq/L (23-29) L 04/17/18 04:32 BUN 88 mg/dL (8-23) H 04/17/18 04:32 Creatinine 4.49 mg/dL (0.70-1.30) H 04/17/18 04:32 Est GFR ( Amer) 16 (> 60) L 04/17/18 04:32 Est GFR (Non-Af Amer) 13 (> 60) L 04/17/18 04:32 Glucose 108 mg/dL (70-105) H 04/17/18 04:32 Calculated Osmolality 307 (280-300) H 04/17/18 04:32 AST 61 Units/L (13-39) H 04/17/18 04:32 ALT 4 Units/L (7-52) L 04/17/18 04:32 Creatine Kinase 1607 Units/L (30-223) H 04/16/18 17:50 HDL Cholesterol 29 mg/dL (40-59) L 04/17/18 04:32 Urine Ketones Trace mg/dL (Negative) H 04/17/18 03:25 - Diagnostic Findings Additional findings: CT scan of the head was negative Consult Discharge Plan - Plan Referrals: Josefina Navarro MD [Primary Care Provider] -
[2018-04-18] MEDS: 0.9 % Sodium Chloride 1,000 ML IVC SCH ×3 (01:43→17:00)
[2018-04-18 03:39] LABS: Basophils # 0.1 K/mcL (0.0-0.2); Basophils % 0.7 %; Eosinophils # 0.2 K/mcL (0.0-0.6); Eosinophils % 3.2 %; Hematocrit 38.9 % (37.5-50.1); Hemoglobin 13.3 g/dL (12.9-16.9); Immature Granulocytes % 0.3 % (0-4); Lymphocytes # 1.4 K/mcL (0.6-4.6); Lymphocytes % 18.6 %; Mean Corpuscular HGB Conc 34.2 g/dL (31.6-35.5); Mean Corpuscular Hemoglobin 24.4 pg (28.0-33.3); Mean Corpuscular Volume 71.4 fL (83.0-100.0); Mean Platelet Volume 7.9 fL (9.4-12.4); Monocytes % 12.8 %; Neutrophils # 4.8 K/mcL (1.6-8.9); Platelet Count 379 K/mcL (140-400); Red Blood Count 5.45 M/mcL (4.19-5.50); Red Cell Distribution Width 14.9 % (11.5-14.5); Segmented Neutrophils % 64.4 %
[2018-04-18 03:58] LABS: Albumin 3.9 g/dL (3.5-5.7); Albumin/Globulin Ratio 1.6 (1.1-2.2); Calcium 9.3 mg/dL (8.6-10.3); Globulin 2.5 g/dL (2.4-3.5); Potassium 3.9 mEq/L (3.5-5.1); Total Protein 6.4 g/dL (6.4-8.9); Uric Acid 8.7 mg/dL (2.3-7.6)
[2018-04-18] MEDS: *HR* Heparin 5,000 UNIT/ML VIAL SQ SCH ×3 (05:25→20:35)
[2018-04-18] MEDS: Insulin LISPRO 300 UNITS/3 ML VIAL SQ SCH ×3 (07:37→17:34)
--- NOTE | 2018-04-18 08:16 | Internal Med Progress Note ---
<Juan Carlos Henry S - Last Filed: 04/18/18 08:13> Hospitalist Progress Note - Encounter Date of Encounter: 04/18/18 Time of Encounter: 08:13 - Subjective Interval History: The pt is seen at bedside. He is a 62yo male with PMH of DM, schizophrenia, and pill rolling tremor presented after fall with difficultly walking and confusion. The pt is a poor historian and doesn't answer questions appropriately at all times. He seems to be unable to focus for long periods of time. He told the night resident he was having difficulty swallowing and had one episode of vomiting. He reports to me that he has falls quite frequently and has fallen 5- 6x in the last ear. He reportedly passed out the day of admission and that is why he came to the hospital. He is unsure of how long he was down for but reports that he was very confused afterwards and his neighbors found him. In the ER he was found to have t 97.5, BP 86/49 and HR 118. He was given IVF and his vitals improved to HR 107, BP 104/60. -labs in the ER showed a creatinine 0f 5.04, WBC 15.1 and Na of 133, initial CK of 1607 Today labs have improved. Creatinine is 2.18, BUN 58 and CK 566 The pt has no new complaints at this time. He denies chest pain, SOB, N/V/D, abd pain. He is tolerating full liquid diet - Exam Vitals: Temp Pulse Resp BP Pulse Ox 97.9 F 89 15 130/79 96 04/18/18 07:00 04/18/18 07:00 04/18/18 07:00 04/18/18 07:00 04/18/18 07:00 Exam: general - discheveled, appears to be unbathed cardio - rrr, s1s2 cta lungs - ctab, no wheeze abd - nondistended, obese abd, nontender to palpation extremities - no edema skin - intact psych - better focused today - Assessment and Plan (1) Acute kidney injury Current Visit: Yes Status: Acute Assessment and Plan: Pt presented with Serum creatinine 5.04, yesterday it was 4.49. Baseline of 0.9- 1.2 -had anion gap metabolic acidosis with unknown etiology; maybe 2/2 lactic acid production after fall/rhabdomyolysis? -creatinine kinase 1607 ----> 566 on 04/18/18 -BUN 86 ---> 84 (04/17/18) ---> 58 (04/18/18) UA negative for infxn Bladder scan (.09.03) showed mild right hydronephrosis -2.9 x 2.0 x 2.1 cm rounded anechoic structure mid to upper left kidney near the hilum which appears to have internal flow on color Doppler. Findings may represent prominent vessel or potentially aneurysm. Plan: -continue IVF at 125cc/hr -nephrology consulted -hold nephrotoxic agents, lisinopril held -monitor kindey fxn, CMP in AM -strict I&O's -CK in morning, continue to trend (2) Rhabdomyolysis Current Visit: Yes Status: Acute Assessment and Plan: Pt reports falling, down for unknown amount of time -pt has had multiple falls in the last year, says between 5 and 6 -neighbors found him w/ AMS, confusion. Pt is poor historian and doesn't remember much Workup for fall was negative -thoracic spine xay - no acute abnormality -lumbar spine showed degenerative changes, recommend CT evaluation for facet injury -cervical spine showed no acute fx from c1-7 -head CT negative for acute intracranial abnormality Creatinine kinase 1607 ---> 566 (9.2.18) Department Assistant 5.04 on admission ---> 4.49 ----> 2.18 (9.2.18) BUN 86 ---> 88 ---> 58 (9.2.18) Plan: -continue aggressive IV hydration, 125cc/hr NS -monitor renal fxn -neprhology consulted -catheter placed -strict I&O's -full liquid diet (3) SIRS (systemic inflammatory response syndrome) Current Visit: Yes Status: Resolved Assessment and Plan: Resolved. On admission pt had tacycardia with leukocyosis -WBC count has resolved , is at 7.4. Was most likely 2/2 hemoconcentration -HR 89 -afebrile Lactic acid of 1 UA negative for infxn CXR showed no acute cardiopulmonary process Plan: -continue to monitor clinically (4) Hypertension Current Visit: No Status: Chronic Assessment and Plan: BP toda 130/79 -adequate control -on home Lisinopril, which is held 2/2 nephrotoxicity -started on amlodipine 5mg PO, will increase to 10mg (5) DVT prophylaxis Current Visit: Yes Status: Acute Assessment and Plan: SQ heparin 5000U (6) Diabetes mellitus Current Visit: No Status: Chronic Assessment and Plan: Metformin held -insulin sliding scale -glucose this AM 103 (7) Schizophrenia Current Visit: No Status: Chronic Assessment and Plan: Currently stable, denies SI. Not appearing to react to internal stimuli -consulted psych for med recommendations -pt is on aripirazole (8) Parkinson disease Current Visit: No Status: Chronic Assessment and Plan: Pt is on carbidopa/levodopa, benztropine -pt exhibits tremor (9) Syncope Current Visit: Yes Status: Acute Assessment and Plan: Pt reports passing out and hitting head -all workup for acute fx or intracranial abnormality is negative, as per notes below ECHO showed a LVEF 65%, normal LV chamber size, wall thickness/fxn -nomral RV structure and fxn -no obvious significant valvular dz Plan: -carotid ultrasound pending -speech eval on thursday or thursday -full liquid diet for now -PTOT - Time Spent with Patient Total time spent is greater than 50% in coordination of care (as documented) at patient's floor/unit and/or counseling patient: Internal Medicine: Result - Labs CBC & Chem 7: 04/18/18 03:25 04/18/18 03:25 Labs: Short CBC 04/18/18 Range/Units 03:25 WBC 7.4 (4.3-11.1) K/mcL Hgb 13.3 (12.9-16.9) g/dL Hct 38.9 (37.5-50.1) % Plt Count 379 (140-400) K/mcL Neutrophils # 4.8 (1.6-8.9) K/mcL BMP 04/18/18 03:25 Sodium 138 Potassium 3.9 Chloride 108 H Carbon Dioxide 22 L BUN 58 H Creatinine 2.18 H Glucose 103 Calcium 9.3 Liver Function 04/18/18 Range/Units 03:25 Total Bilirubin 1.0 (0.3-1.0) mg/dL AST 52 H (13-39) Units/L ALT 9 (7-52) Units/L Alkaline Phosphatase 49 (34-104) Units/L Albumin 3.9 (3.5-5.7) g/dL - ABG Interpretation ABG results: PT/INR, D-dimer PT 13.9 Seconds (9.4-12.1) H 04/17/18 04:32 - Impressions Impressions Brain MRI 04/16/18 21:45 IMPRESSION: No acute intracranial abnormality. D/ / Kristian Ellis MD / Kristian Ellis MD Interpreting Provider: Kristian Ellis MD Retroperitoneum Ultrasound 04/17/18 14:00 IMPRESSION: Mild right hydronephrosis. 2.9 x 2.0 x 2.1 cm rounded anechoic structure mid to upper left kidney near the hilum which appears to have internal flow on color Doppler. Findings may represent prominent vessel or potentially aneurysm. Recommend further evaluation with CT with contrast. D/ / Sana Maravilla MD / Sana Maravilla MD Interpreting Provider: Sana Maravilla MD Consult Discharge Plan - Plan Referrals: Josefina Navarro MD [Primary Care Provider] - <Juanito Henson - Last Filed: 04/18/18 12:24> Hospitalist Progress Note - Encounter Date of Encounter: 04/18/18 - Exam Vitals: Temp Pulse Resp BP Pulse Ox 98.5 F 98 16 111/76 99 04/18/18 10:35 04/18/18 10:35 04/18/18 10:35 04/18/18 10:35 04/18/18 10:35 - Assessment and Plan (1) Acute kidney injury Current Visit: Yes Status: Acute (2) Diabetes mellitus Current Visit: No Status: Chronic (3) Rhabdomyolysis Current Visit: Yes Status: Acute (4) SIRS (systemic inflammatory response syndrome) Current Visit: Yes Status: Resolved (5) Hypertension Current Visit: No Status: Chronic (6) DVT prophylaxis Current Visit: Yes Status: Acute (7) Schizophrenia Current Visit: No Status: Chronic (8) Parkinson disease Current Visit: No Status: Chronic (9) Syncope Current Visit: Yes Status: Acute - Time Spent with Patient Total time spent is greater than 50% in coordination of care (as documented) at patient's floor/unit and/or counseling patient: Internal Medicine: Result - Labs CBC & Chem 7: 04/18/18 03:25 04/18/18 03:25 Labs: Short CBC 04/18/18 Range/Units 03:25 WBC 7.4 (4.3-11.1) K/mcL Hgb 13.3 (12.9-16.9) g/dL Hct 38.9 (37.5-50.1) % Plt Count 379 (140-400) K/mcL Neutrophils # 4.8 (1.6-8.9) K/mcL BMP 04/18/18 03:25 Sodium 138 Potassium 3.9 Chloride 108 H Carbon Dioxide 22 L BUN 58 H Creatinine 2.18 H Glucose 103 Calcium 9.3 Liver Function 04/18/18 Range/Units 03:25 Total Bilirubin 1.0 (0.3-1.0) mg/dL AST 52 H (13-39) Units/L ALT 9 (7-52) Units/L Alkaline Phosphatase 49 (34-104) Units/L Albumin 3.9 (3.5-5.7) g/dL - ABG Interpretation ABG results: PT/INR, D-dimer PT 13.9 Seconds (9.4-12.1) H 04/17/18 04:32 - Impressions Impressions Brain MRI 04/16/18 21:45 IMPRESSION: No acute intracranial abnormality. D/ / Kristian Ellis MD / Kristian Ellis MD Interpreting Provider: Kristian Ellis MD Retroperitoneum Ultrasound 04/17/18 14:00 IMPRESSION: Mild right hydronephrosis. 2.9 x 2.0 x 2.1 cm rounded anechoic structure mid to upper left kidney near the hilum which appears to have internal flow on color Doppler. Findings may represent prominent vessel or potentially aneurysm. Recommend further evaluation with CT with contrast. D/ / Sana Maravilla MD / Sana Maravilla MD Interpreting Provider: Sana Maravilla MD - Attending Attestation I have seen and examined this patient independently. I have discussed with resident physician Dr. Henry regarding the management plan. Agree with the documentation. <Juan Carlos Henry - Last Filed: 04/18/18 08:13> (4) Hypertension Qualifiers: Hypertension type: essential hypertension Qualified Code(s): I10 - Essential (primary) hypertension (6) Diabetes mellitus Qualifiers: Diabetes mellitus type: type 2 Diabetes mellitus correction insulin use: without automatic packer operator use Diabetes mellitus complication status: with hyperglycemia Qualified Code(s): E11.65 - Type 2 diabetes mellitus with hyperglycemia (7) Schizophrenia Qualifiers: Schizophrenia type: unspecified Qualified Code(s): F20.9 - Schizophrenia, unspecified (9) Syncope Qualifiers: Syncope type: unspecified Qualified Code(s): R55 - Syncope and collapse <Nay Hensondanielbalbina - Last Filed: 04/18/18 12:24> (2) Diabetes mellitus Qualifiers: Diabetes mellitus type: type 2 Diabetes mellitus correction insulin use: without correction use Diabetes mellitus complication status: with hyperglycemia Qualified Code(s): E11.65 - Type 2 diabetes mellitus with hyperglycemia (3) Rhabdomyolysis Qualifiers: Rhabdomyolysis type: non-traumatic Qualified Code(s): M62.82 - Rhabdomyolysis (5) Hypertension Qualifiers: Hypertension type: essential hypertension Qualified Code(s): I10 - Essential (primary) hypertension (7) Schizophrenia Qualifiers: Schizophrenia type: unspecified Qualified Code(s): F20.9 - Schizophrenia, unspecified (9) Syncope Qualifiers: Syncope type: unspecified Qualified Code(s): R55 - Syncope and collapse
--- NOTE | 2018-04-18 08:29 | Nephrology Progress Note ---
Date of Encounter: 04/18/18 Time of Encounter: 09:30 - Assessment and Plan (1) Acute kidney injury Current Visit: Yes Status: Acute Suspect prerenal and post renal (he has hydronephrosis) plus very mild rhabdo. No need for SCREWDOWN OPERATOR. Trending better with the garcia and IVF. Before discharge, he should have a voiding trial to ensure his renal function does not worsen when the garcia is removed. Consider Urology consultation at some point, but no sosa today on this holiday weekend. Continue to follow a renal conservative/protective strategy. (2) Rhabdomyolysis Current Visit: Yes Status: Acute Very mild CKD elevation; trending better: continue IVF. Qualifiers: Rhabdomyolysis type: non-traumatic Qualified Code(s): M62.82 - Rhabdomyolysis (3) Left renal mass Current Visit: Yes Status: Acute Should be followed up with CT ideally with IV contrast when the SCr improves (4) Hydronephrosis Current Visit: Yes Status: Acute See above Qualifiers: Hydronephrosis type: unspecified Qualified Code(s): N13.30 - Unspecified hydronephrosis Subjective Principal diagnosis: MIGUELANGEL Interval history: Pt was s/e earlier today in his 2A room. He voiced feeling better today with a good appetite. He did not affirm any worsening of his shortness of breath or N/V /D. Objective - Vital Signs Vital signs: Vital Signs Temp Pulse Resp BP Pulse Ox 04/18/18 07:00 97.9 F 89 15 130/79 96 04/18/18 03:35 98.6 F 92 16 132/90 98 04/17/18 23:20 98.5 F 85 15 109/74 96 04/17/18 21:15 98 04/17/18 18:53 97.6 F 96 16 127/86 98 04/17/18 16:13 97.8 F 99 18 129/79 96 04/17/18 11:42 97.4 F L 93 18 145/88 97 Intake and Output 04/17/18 04/18/18 04/18/18 23:59 07:59 15:59 Intake Total 1120 / 1120 Output Total 1200 / 1200 1000 / 1000 Balance -80 / -80 -1000 / -1000 Intake: IV Fluids 1000 / 1000 0.9 % Sodium Chloride 1,000 ML 1000 / 1000 @ 125 mls/hr IVC .Q8H JARRET Rx#: [id number] Oral 120 / 120 Output: Urine 1200 / 1200 Catheter 1000 / 1000 Other: Stool Size Large Stool Consistency formed # Bowel Movement Diapers 1 Weight 88.3 kg Blood Glucose* 99 111 Patient Weight 04/18/18 23:59 Weight 88.3 kg - General Appearance General appearance: Present: well-developed, well-nourished, appears started age , obese EENT: Present: ATNC, PERRL, mucous membranes moist Respiratory: Present: clear Cardiology: Present: edema (trace pedal edema b/l ), regular rate, normal S1, normal S2 Gastrointestinal: Present: normoactive bowel sounds, no tenderness, no guarding Integumentary: Present: no rash, warm and dry Neurologic: Present: no focal deficit, no asterixis, alert and oriented x3 Additional Comments: +intention tremor his hands b/l Musculoskeletal: Present: no deformities, no erythema, no cyanosis Psychiatric: Present: mood/affect appropriate, cooperative - Lab 04/18/18 03:25 04/18/18 03:25 Most recent lab results Calcium 9.3 mg/dL (8.6-10.3) 04/18/18 03:25 - Imaging Kidney/bladder ultrasound: report reviewed (hydro and renal lesion) Consult Discharge Plan - Plan Referrals: Josefina Navarro MD [Primary Care Provider] -
[2018-04-18] MEDS: amLODIPine 5 MG TABLET PO SCH ×2 (08:55→08:57)
[2018-04-18] MEDS: ARIPiprazole 10 MG TABLET PO SCH (08:55)
[2018-04-18] MEDS: Aspirin Enteric Coated 81 MG Tablet PO SCH (08:55)
[2018-04-18] MEDS: Carbidopa/Levodopa 25/100 TABLET PO SCH ×3 (08:55→20:34)
[2018-04-18 10:44] LABS: Estimated Average Glucose 123 mg/dl; Hemoglobin A1C 5.9 %
[2018-04-18] MEDS ORDERED: hydrOXYzine pamoate 25 MG CAPSULE PO PRN (13:01)
[2018-04-18 16:45] LABS: Bilirubin,Urine Negative (Negative); Blood,Urine Large (Negative); Clarity,Urine Cloudy (Clear); Color,Urine Yellow (Yellow); Glucose,Urine (UA) Normal (Normal); Ketones,Urine Negative (Negative); Leukocyte Esterase,Urine Small (Negative); Nitrite,Urine Negative (Negative); PH,Urine 5.5 pH Units (5.0-8.0); Protein,Urine 100 mg/dL (Neg-Trace); Specific Gravity,Urine 1.022 (1.010-1.025); Urobilinogen,Urine Normal (Normal)
[2018-04-18 16:48] LABS: Bacteria,Urine None Seen per hpf (None-Few); Hyaline Casts,Urine None Seen per lpf (None-Few); RBC,Urine TNTC per hpf (0-3); Squamous Epithelial Cell,Urine Many per lpf (None-Few)
[2018-04-18] MEDS: traZODone 50 MG TABLET PO SCH (20:33)
[2018-04-18] MEDS: BuPROPion SR (12 HR) 150 MG TABLET PO SCH (20:34)
[2018-04-19] MEDS: 0.9 % Sodium Chloride 1,000 ML IVC SCH ×2 (01:27→14:23)
[2018-04-19] MEDS: *HR* Heparin 5,000 UNIT/ML VIAL SQ SCH ×3 (05:02→20:48)
[2018-04-19 05:50] LABS: Basophils # 0.1 K/mcL (0.0-0.2); Basophils % 0.6 %; Eosinophils # 0.4 K/mcL (0.0-0.6); Eosinophils % 4.6 %; Hematocrit 42.3 % (37.5-50.1); Hemoglobin 14.2 g/dL (12.9-16.9); Immature Granulocytes % 0.5 % (0-4); Lymphocytes # 1.7 K/mcL (0.6-4.6); Lymphocytes % 21.9 %; Mean Corpuscular HGB Conc 33.6 g/dL (31.6-35.5); Mean Corpuscular Hemoglobin 24.6 pg (28.0-33.3); Mean Corpuscular Volume 73.2 fL (83.0-100.0); Mean Platelet Volume 8.5 fL (9.4-12.4); Monocytes % 13.1 %; Neutrophils # 4.6 K/mcL (1.6-8.9); Platelet Count 427 K/mcL (140-400); Red Blood Count 5.78 M/mcL (4.19-5.50); Red Cell Distribution Width 15.2 % (11.5-14.5); Segmented Neutrophils % 59.3 %
[2018-04-19 06:07] LABS: Albumin/Globulin Ratio 1.5 (1.1-2.2); Bilirubin,Total 0.8 mg/dL (0.3-1.0); Calcium 9.4 mg/dL (8.6-10.3); Globulin 2.7 g/dL (2.4-3.5); Potassium 4.2 mEq/L (3.5-5.1); Total Protein 6.7 g/dL (6.4-8.9)
--- NOTE | 2018-04-19 07:17 | Event Note ---
Date of Encounter: 04/19/18 Time of Encounter: 07:15 Nephrology Chart Review His SCr is quickly improving. See my comments re: hydronephrosis and renal lesion from yesterday. Will sign-off at this point, but please feel free to contact me for any questions. I'd recommend outpt Nephrology follow up in 3-6 weeks. Thank you.
[2018-04-19] MEDS: Multivit/Ca/Min/Fe/FA 1 TAB TABLET PO SCH (08:11)
[2018-04-19] MEDS: ARIPiprazole 10 MG TABLET PO SCH (08:11)
[2018-04-19] MEDS: Carbidopa/Levodopa 25/100 TABLET PO SCH ×3 (08:11→20:48)
[2018-04-19] MEDS: Aspirin Enteric Coated 81 MG Tablet PO SCH (08:11)
[2018-04-19] MEDS: amLODIPine 5 MG TABLET PO SCH (08:12)
[2018-04-19] MEDS: BuPROPion SR (12 HR) 150 MG TABLET PO SCH ×2 (08:12→20:48)
--- NOTE | 2018-04-19 08:53 | Internal Med Progress Note ---
<Juan Carlos Henry S - Last Filed: 04/19/18 08:51> Hospitalist Progress Note - Encounter Date of Encounter: 04/19/18 Time of Encounter: 07:45 - Subjective Interval History: The pt is seen at bedside. He is a 62yo male with PMH of DM, schizophrenia, and pill rolling tremor presented after fall with difficultly walking and confusion. On admission the pt appears to be a poor historian and doesn't answer questions appropriately at all times. He seems to be unable to focus for long periods of time. He told the night resident he was having difficulty swallowing and had one episode of vomiting. He reports to me that he has falls quite frequently and has fallen 5-6x in the last ear. He reportedly passed out the day of admission and that is why he came to the hospital. He is unsure of how long he was down for but reports that he was very confused afterwards and his neighbors found him. In the ER he was found to have t 97.5, BP 86/49 and HR 118. He was given IVF and his vitals improved to HR 107, BP 104/60. -labs in the ER showed a creatinine 0f 5.04, WBC 15.1 and Na of 133, initial CK of 1607 Today labs have improved. Creatinine is 1.47, BUN 36 and CK 229 The pt has no new complaints at this time. He denies chest pain, SOB, N/V/D, abd pain. He is tolerating full liquid diet - Exam Vitals: Temp Pulse Resp BP Pulse Ox 97.5 F L 89 16 136/97 99 04/19/18 07:44 04/19/18 07:44 04/19/18 07:44 04/19/18 07:44 04/19/18 08:24 Exam: general - discheveled, appears to be unbathed cardio - rrr, s1s2 cta lungs - ctab, no wheeze abd - nondistended, obese abd, nontender to palpation extremities - no edema skin - intact psych - better focused today - Assessment and Plan (1) Acute kidney injury Current Visit: Yes Status: Acute Assessment and Plan: Pt presented with Serum creatinine 5.04, yesterday it was 4.49. Baseline of 0.9- 1.2 -had anion gap metabolic acidosis with unknown etiology; maybe 2/2 lactic acid production after fall/rhabdomyolysis? -suspected pre and postrenal MIGUELANGEL from hydronephrosis and rhabdomyolysis -creatinine kinase 1607 ----> 566 on 04/18/18 ---> 229 (04/19/18) -BUN 86 ---> 84 (04/17/18) ---> 58 (04/18/18) ---> 36 (04/19/18) UA negative for infxn Bladder scan (04.17.18) showed mild right hydronephrosis -2.9 x 2.0 x 2.1 cm rounded anechoic structure mid to upper left kidney near the hilum which appears to have internal flow on color Doppler. Findings may represent prominent vessel or potentially aneurysm. Plan: -continue IVF at 80cc/hr -nephrology signed off and recommends outpt follow up in 3-6wks -hold nephrotoxic agents, lisinopril held -monitor kindey fxn, CMP in AM -strict I&O's -CK in morning, continue to trend -possible d/c tomorrow, will need a voiding trial (2) Rhabdomyolysis Current Visit: Yes Status: Acute Assessment and Plan: Pt reports falling, down for unknown amount of time -pt has had multiple falls in the last year, says between 5 and 6 -neighbors found him w/ AMS, confusion. Pt is poor historian and doesn't remember much Workup for fall was negative -thoracic spine xay - no acute abnormality -lumbar spine showed degenerative changes, recommend CT evaluation for facet injury -cervical spine showed no acute fx from c1-7 -head CT negative for acute intracranial abnormality Creatinine kinase 1607 ---> 566 (9.2.18) Kettle Loader 5.04 on admission ---> 4.49 ----> 2.18 (9.2.18) ---> 1.47 (04/19/18) BUN 86 ---> 88 ---> 58 (9.2.18) ---> 36 (04/19/18) Plan: -continue 80cc/hr IVF -monitor renal fxn -neprhology consulted, signed off and recommend outpt follow up in 4-6wks -catheter placed, will do voiding trial before d/c. possibly tomorrow -strict I&O's (3) SIRS (systemic inflammatory response syndrome) Current Visit: Yes Status: Resolved Assessment and Plan: Resolved. On admission pt had tacycardia with leukocyosis -WBC count has resolved , is at 7.4. Was most likely 2/2 hemoconcentration -HR 89 -afebrile Lactic acid of 1 UA negative for infxn CXR showed no acute cardiopulmonary process Plan: -continue to monitor clinically (4) Hypertension Current Visit: No Status: Chronic Assessment and Plan: BP toda 136/97 -adequate control -on home Lisinopril, which is held 2/2 nephrotoxicity -started on amlodipine 5mg PO, will increase to 10mg (5) DVT prophylaxis Current Visit: Yes Status: Acute Assessment and Plan: SQ heparin 5000U (6) Diabetes mellitus Current Visit: No Status: Chronic Assessment and Plan: Metformin held -insulin sliding scale -glucose this AM 104 (7) Schizophrenia Current Visit: No Status: Chronic Assessment and Plan: Currently stable, denies SI. Not appearing to react to internal stimuli -consulted psych for med recommendations -pt is on aripirazole (8) Parkinson disease Current Visit: No Status: Chronic Assessment and Plan: Pt is on carbidopa/levodopa, benztropine -pt exhibits tremor (9) Syncope Current Visit: Yes Status: Acute Assessment and Plan: Pt reports passing out and hitting head -all workup for acute fx or intracranial abnormality is negative, as per notes below ECHO showed a LVEF 65%, normal LV chamber size, wall thickness/fxn -nomral RV structure and fxn -no obvious significant valvular dz Patient passed nursing speech swallow Carotid ultrasound showed bilateral carotid system with nonstenotic plaque Plan: -speech eval on thursday or thursday -change to regular diet -PTOT - Time Spent with Patient Total time spent is greater than 50% in coordination of care (as documented) at patient's floor/unit and/or counseling patient: less than 15 minutes Plan of Care Discussed with: patient Internal Medicine: Result - Labs CBC & Chem 7: 04/19/18 04:47 04/19/18 04:47 Labs: Short CBC 04/19/18 Range/Units 04:47 WBC 7.8 (4.3-11.1) K/mcL Hgb 14.2 (12.9-16.9) g/dL Hct 42.3 (37.5-50.1) % Plt Count 427 H (140-400) K/mcL Neutrophils # 4.6 (1.6-8.9) K/mcL BMP 04/19/18 04:47 Sodium 136 Potassium 4.2 Chloride 107 Carbon Dioxide 23 BUN 36 H Creatinine 1.47 H Glucose 104 Calcium 9.4 Liver Function 04/19/18 Range/Units 04:47 Total Bilirubin 0.8 (0.3-1.0) mg/dL AST 36 (13-39) Units/L ALT 6 L (7-52) Units/L Alkaline Phosphatase 48 (34-104) Units/L Albumin 4.0 (3.5-5.7) g/dL Urine 04/18/18 Range/Units 16:29 Urine Color Yellow (Yellow) Urine Clarity Cloudy A (Clear) Urine pH 5.5 (5.0-8.0) pH Units Ur Specific [place] 1.022 (1.010-1.025) Urine Protein 100 H (Neg-Trace) mg/dL Urine Glucose (UA) Normal (Normal) mg/dL - ABG Interpretation ABG results: PT/INR, D-dimer PT 13.9 Seconds (9.4-12.1) H 04/17/18 04:32 Consult Discharge Plan - Plan Referrals: Josefina Navarro MD [Primary Care Provider] - <Juanito Henson - Last Filed: 04/19/18 11:51> Hospitalist Progress Note - Encounter Date of Encounter: 04/19/18 - Exam Vitals: Temp Pulse Resp BP Pulse Ox 97.5 F L 89 16 136/97 99 04/19/18 07:44 04/19/18 07:44 04/19/18 07:44 04/19/18 07:44 04/19/18 08:24 - Assessment and Plan (1) Acute kidney injury Current Visit: Yes Status: Acute (2) Diabetes mellitus Current Visit: No Status: Chronic (3) Rhabdomyolysis Current Visit: Yes Status: Acute (4) SIRS (systemic inflammatory response syndrome) Current Visit: Yes Status: Resolved (5) Hypertension Current Visit: No Status: Chronic (6) DVT prophylaxis Current Visit: Yes Status: Acute (7) Schizophrenia Current Visit: No Status: Chronic (8) Parkinson disease Current Visit: No Status: Chronic (9) Syncope Current Visit: Yes Status: Acute - Time Spent with Patient Total time spent is greater than 50% in coordination of care (as documented) at patient's floor/unit and/or counseling patient: Internal Medicine: Result - Labs CBC & Chem 7: 04/19/18 04:47 04/19/18 04:47 Labs: Short CBC 04/19/18 Range/Units 04:47 WBC 7.8 (4.3-11.1) K/mcL Hgb 14.2 (12.9-16.9) g/dL Hct 42.3 (37.5-50.1) % Plt Count 427 H (140-400) K/mcL Neutrophils # 4.6 (1.6-8.9) K/mcL BMP 04/19/18 04:47 Sodium 136 Potassium 4.2 Chloride 107 Carbon Dioxide 23 BUN 36 H Creatinine 1.47 H Glucose 104 Calcium 9.4 Liver Function 04/19/18 Range/Units 04:47 Total Bilirubin 0.8 (0.3-1.0) mg/dL AST 36 (13-39) Units/L ALT 6 L (7-52) Units/L Alkaline Phosphatase 48 (34-104) Units/L Albumin 4.0 (3.5-5.7) g/dL Urine 04/18/18 Range/Units 16:29 Urine Color Yellow (Yellow) Urine Clarity Cloudy A (Clear) Urine pH 5.5 (5.0-8.0) pH Units Ur Specific [place] 1.022 (1.010-1.025) Urine Protein 100 H (Neg-Trace) mg/dL Urine Glucose (UA) Normal (Normal) mg/dL - ABG Interpretation ABG results: PT/INR, D-dimer PT 13.9 Seconds (9.4-12.1) H 04/17/18 04:32 - Attending Attestation I have seen and examined this patient independently. I have discussed with resident physician Dr. Henry regarding the management plan. Agree with the documentation. <Juan Carlos Henry - Last Filed: 04/19/18 08:51> (2) Rhabdomyolysis Qualifiers: Rhabdomyolysis type: non-traumatic Qualified Code(s): M62.82 - Rhabdomyolysis (4) Hypertension Qualifiers: Hypertension type: essential hypertension Qualified Code(s): I10 - Essential (primary) hypertension (6) Diabetes mellitus Qualifiers: Diabetes mellitus type: type 2 Diabetes mellitus intermediate insulin use: without intermediate use Diabetes mellitus complication status: with hyperglycemia Qualified Code(s): E11.65 - Type 2 diabetes mellitus with hyperglycemia (7) Schizophrenia Qualifiers: Schizophrenia type: unspecified Qualified Code(s): F20.9 - Schizophrenia, unspecified (9) Syncope Qualifiers: Syncope type: unspecified Qualified Code(s): R55 - Syncope and collapse <Juanito Henson - Last Filed: 04/19/18 11:51> (2) Diabetes mellitus Qualifiers: Diabetes mellitus type: type 2 Diabetes mellitus intermediate insulin use: without intermediate use Diabetes mellitus complication status: with hyperglycemia Qualified Code(s): E11.65 - Type 2 diabetes mellitus with hyperglycemia (3) Rhabdomyolysis Qualifiers: Rhabdomyolysis type: non-traumatic Qualified Code(s): M62.82 - Rhabdomyolysis (5) Hypertension Qualifiers: Hypertension type: essential hypertension Qualified Code(s): I10 - Essential (primary) hypertension (7) Schizophrenia Qualifiers: Schizophrenia type: unspecified Qualified Code(s): F20.9 - Schizophrenia, unspecified (9) Syncope Qualifiers: Syncope type: unspecified Qualified Code(s): R55 - Syncope and collapse
[2018-04-19] MEDS: Insulin LISPRO 300 UNITS/3 ML VIAL SQ SCH ×3 (09:06→17:17)
[2018-04-19] MEDS: traZODone 50 MG TABLET PO SCH (20:48)
[2018-04-20] MEDS: 0.9 % Sodium Chloride 1,000 ML IVC SCH (03:51)
[2018-04-20] MEDS: *HR* Heparin 5,000 UNIT/ML VIAL SQ SCH (05:02)
[2018-04-20 07:05] LABS: BUN/Creatinine Ratio 19 (6-26); Blood Urea Nitrogen 22 mg/dL (8-23); Calcium 9.1 mg/dL (8.6-10.3); Carbon Dioxide 16 mEq/L (23-29); Chloride 107 mEq/L (98-107); Glucose 122 mg/dL (70-105); Osmolality,Calculated 279 (280-300); Potassium 4.2 mEq/L (3.5-5.1); Sodium 132 mEq/L (136-145); eGFR For Non-African Americans > 60 (> 60)
[2018-04-20] MEDS: ARIPiprazole 10 MG TABLET PO SCH (08:21)
[2018-04-20] MEDS: Carbidopa/Levodopa 25/100 TABLET PO SCH (08:21)
[2018-04-20] MEDS: Multivit/Ca/Min/Fe/FA 1 TAB TABLET PO SCH (08:21)
[2018-04-20] MEDS: Aspirin Enteric Coated 81 MG Tablet PO SCH (08:21)
[2018-04-20] MEDS: BuPROPion SR (12 HR) 150 MG TABLET PO SCH (08:21)
[2018-04-20] MEDS: amLODIPine 5 MG TABLET PO SCH (08:22)
[2018-04-20] MEDS: Insulin LISPRO 300 UNITS/3 ML VIAL SQ SCH (08:25)
--- NOTE | 2018-04-20 08:25 | Discharge Summary ---
<Juan Carlos Henry S - Last Filed: 04/20/18 09:45> - NOTES TO OUTPATIENT PROVIDER Notes to Outpatient Provider: Follow up on renal fxn. Date of Encounter: 04/20/18 Time of Encounter: 08:23 - Discharge Diagnosis (1) Acute kidney injury Priority: Primary Status: Resolved (2) Rhabdomyolysis Priority: Secondary Status: Resolved Qualifiers: Rhabdomyolysis type: non-traumatic Qualified Code(s): M62.82 - Rhabdomyolysis (3) SIRS (systemic inflammatory response syndrome) Priority: Secondary Status: Resolved (4) Hypertension Priority: Secondary Status: Chronic Qualifiers: Hypertension type: essential hypertension Qualified Code(s): I10 - Essential (primary) hypertension (5) DVT prophylaxis Priority: Secondary Status: Acute (6) Diabetes mellitus Priority: Secondary Status: Chronic Qualifiers: Diabetes mellitus type: type 2 Diabetes mellitus fci insulin use: without truck terminal manager use Diabetes mellitus complication status: with hyperglycemia Qualified Code(s): E11.65 - Type 2 diabetes mellitus with hyperglycemia (7) Schizophrenia Priority: Secondary Status: Chronic Qualifiers: Schizophrenia type: unspecified Qualified Code(s): F20.9 - Schizophrenia, unspecified (8) Parkinson disease Priority: Secondary Status: Chronic (9) Syncope Priority: Secondary Status: Chronic Qualifiers: Syncope type: unspecified Qualified Code(s): R55 - Syncope and collapse Hospital course: Mr. Walters is a 62 year old male w/ PMH of T2DM, schizophrenia, parkinsons, CAD, HTN, and asthma. He presented after being found after a fall with subsequent difficulty in focusing and speaking. He has had trouble swallowing as well. Pt reports that over the last year he has fallen 5-6 x and it has been getting worse the last few months. In the ER he was found to have t 97.5, BP 86/49 and HR 118. He was given IVF and his vitals improved to HR 107, BP 104/60. -labs in the ER showed a creatinine 0f 5.04, WBC 15.1 and Na of 133 -pt had a CK of 1607 and was found to be in rhabdomyolysis Nephrology saw him and recommended aggressive IVF, to which the pt responded well. They signed off and recommended follow up in 4-6wks. -Renal fxn trended: -creatinine kinase 1607 ----> 566 on 04/18/18 ---> 229 (04/19/18) -BUN 86 ---> 84 (04/17/18) ---> 58 (04/18/18) ---> 36 (04/19/18) ---> 22 (04/20/18) -Creatinine 5.04 ---> 4.49 ---> 2.18 (04.18.18) ---> 1.47 (04/19/18) ---> today creatinine is 1.17 Pt passed voiding trial and swallowing study. He is ambulating appropriately. At this time the pt is stable for discharge. Kidney fxn is back to baseline. Pt offered ECF but he is adament that he doesn't want to go. States he only wants home health. mPOA is in agreement. Discharge discussed with: patient Time spent discussing smoking cessation with patient: 3 to 10 minutes - Time Spent with Patient Total time spent providing and/or coordinating discharge services: Less than 30 minutes - Discharge Medications Home Medications: Aspirin [Lo-Dose Aspirin EC] 81 mg PO DAILY 01/03/17 [History] Multivitamin [One Daily Essential] 1 tab PO DAILY 01/03/17 [History] ARIPiprazole [Abilify] 10 mg PO DAILY #30 tablet 01/09/17 [Rx] Benztropine Mesylate 2 mg PO BID 04/16/18 [History] BuPROPion SR (12 HR) [Wellbutrin SR] 150 mg PO BID 04/16/18 [History] Carbidopa/Levodopa 25/100 [Sinemet 25/100] 1 tab PO TID 04/16/18 [History] Lisinopril-HCTZ 20-12.5 [Prinzide 20-12.5] 1 tab PO BID 04/16/18 [History] Metformin HCl 1,000 mg PO BID 04/16/18 [History] hydrOXYzine HCl [Hydroxyzine HCl] 25 mg PO Q6H PRN 04/16/18 [History] traZODone [TraZODone] 50 - 100 mg PO HS 04/16/18 [History] Allergies/Adverse Reactions: 3 Allergy/AdvReac Type Severity Reaction Status Date / Time esomeprazole [From Nexium] Allergy Rash Verified 01/03/17 09:30 Cyclobenzaprine AdvReac Hypotension Verified 01/03/17 09:30 [From Flexeril] Date of admission: 04/16/18 21:32 Primary care physician: Josefina Navarro Consults: 04/16/18 21:50 Consult to Psychiatry [CONS] Routine Consulting Provider: Psychiatry Barbara Reason consult: Medication recommendation Capacity assessment Other reason and/or additional details: previosuly admitted to [facility] hx schizophrenia- AMS Call Completed: No Discharging clinician: Juan Carlos Henry Anticipated date of discharge: 04/20/18 - Constitutional Vitals: Temp Pulse Resp BP Pulse Ox 97.7 F 98 16 141/97 96 04/20/18 06:47 04/20/18 06:47 04/20/18 06:47 04/20/18 06:47 04/20/18 06:47 General appearance: Present: cooperative, mild distress, A&O X 3, obese. Absent : answers questions appropriately Exam: general - discheveled, appears to be unbathed cardio - rrr, s1s2 cta lungs - ctab, no wheeze abd - nondistended, obese abd, nontender to palpation extremities - no edema skin - intact psych - better focused today - Patient Status Disposition: Home Health Service Condition: Fair Functional capacity at discharge: independent ambulation Overall status at discharge: patient is progressing back to baseline - Discharge Instructions Instructions: Acute Kidney Injury (DC) Follow Up With: Josefina Navarro MD [Primary Care Provider] - 04/29/18 9:15 am (Please follow up as schedule...) Thomas Roy DO [Partnered Physician] - 05/26/18 1:10 pm (Please follow up as schedule..) - Diet and Activity Activity: increase activity as tolerated Diet: diabetic diet, low fat, low cholesterol <Thallapaneni,Rambabu - Last Filed: 04/20/18 16:05> Date of Encounter: 04/20/18 - Discharge Diagnosis (1) Acute kidney injury Status: Resolved (2) Diabetes mellitus Status: Chronic Qualifiers: Diabetes mellitus type: type 2 Diabetes mellitus truck terminal manager insulin use: without fci use Diabetes mellitus complication status: with hyperglycemia Qualified Code(s): E11.65 - Type 2 diabetes mellitus with hyperglycemia (3) Rhabdomyolysis Status: Resolved Qualifiers: Rhabdomyolysis type: non-traumatic Qualified Code(s): M62.82 - Rhabdomyolysis (4) SIRS (systemic inflammatory response syndrome) Status: Resolved (5) Hypertension Status: Chronic Qualifiers: Hypertension type: essential hypertension Qualified Code(s): I10 - Essential (primary) hypertension (6) DVT prophylaxis Status: Acute (7) Schizophrenia Status: Chronic Qualifiers: Schizophrenia type: unspecified Qualified Code(s): F20.9 - Schizophrenia, unspecified (8) Parkinson disease Status: Chronic (9) Syncope Status: Chronic Qualifiers: Syncope type: unspecified Qualified Code(s): R55 - Syncope and collapse Hospital course: Mr. Walters is a 62 year old male - Time Spent with Patient Total time spent providing and/or coordinating discharge services: Date of admission: 04/16/18 21:32 Primary care physician: Josefina Navarro Consults: 04/16/18 21:50 Consult to Psychiatry [CONS] Routine Consulting Provider: Psychiatry Barbara Reason consult: Medication recommendation Capacity assessment Other reason and/or additional details: previosuly admitted to [facility] schizophrenia- AMS Call Completed: No - Constitutional Vitals: Temp Pulse Resp BP Pulse Ox 97.4 F L 102 17 154/97 100 04/20/18 10:45 04/20/18 10:45 04/20/18 10:45 04/20/18 10:45 04/20/18 10:45 - Attending Attestation I examined this patient and my medical decision-making was reviewed with the Resident Physician Dr. Henry. I agree with the documented findings, disposition and treatment plan as described except to the extent set forth below. Mr. Walters is a 62 year old male w/ PMH of T2DM, schizophrenia, parkinsons, CAD, HTN, and asthma. He was brought into ER after being found on the floor. He did have severe rhabdomyolysis with MIGUELANGEL which improved with IV hydration. He was evaluated by PT / OT , who recommend ECF placement, however pt refused to go to ECF. So will d/c him home with home health services. Gen; A, A, O x 3 Chest: CTA Heart: S1S2+ RRR
--- NOTE | 2018-04-20 08:33 | Physician Discharge Referral ---
Home Health/Hosp Referral Info Transfer to: Home Health Attending Provider: Dr. Asher Provider in Charge Post Discharge: PCP - Diagnosis (1) Acute kidney injury Priority: Primary Status: Resolved (2) Syncope Priority: Secondary Status: Chronic (3) Rhabdomyolysis Priority: Secondary Status: Resolved (4) SIRS (systemic inflammatory response syndrome) Priority: Secondary Status: Resolved (5) Hypertension Priority: Secondary Status: Chronic (6) DVT prophylaxis Priority: Secondary Status: Acute (7) Diabetes mellitus Priority: Secondary Status: Chronic (8) Schizophrenia Priority: Secondary Status: Chronic (9) Parkinson disease Priority: Secondary Status: Chronic - Respiratory Orders None Smoking Cessation: Smoking cessation has been advised. For more information, call the [employer] Tobacco Quit Line at 5-422-KOBQ-NOW. - Diet/Nutrition Diet/Nutrition Orders: Cardiac - Activity Activity Orders: Up ad stefan - Services Needed Following services are medically necessary services: Home Health Aide - Transfer Medications Home Medications: Aspirin [Lo-Dose Aspirin EC] 81 mg PO DAILY 01/03/17 [History] Multivitamin [One Daily Essential] 1 tab PO DAILY 01/03/17 [History] ARIPiprazole [Abilify] 10 mg PO DAILY #30 tablet 01/09/17 [Rx] Benztropine Mesylate 2 mg PO BID 04/16/18 [History] BuPROPion SR (12 HR) [Wellbutrin SR] 150 mg PO BID 04/16/18 [History] Carbidopa/Levodopa 25/100 [Sinemet 25/100] 1 tab PO TID 04/16/18 [History] Lisinopril-HCTZ 20-12.5 [Prinzide 20-12.5] 1 tab PO BID 04/16/18 [History] Metformin HCl 1,000 mg PO BID 04/16/18 [History] hydrOXYzine HCl [Hydroxyzine HCl] 25 mg PO Q6H PRN 04/16/18 [History] traZODone [TraZODone] 50 - 100 mg PO HS 04/16/18 [History] Allergies/Adverse Reactions: 3 Allergy/AdvReac Type Severity Reaction Status Date / Time esomeprazole [From Nexium] Allergy Rash Verified 01/03/17 09:30 Cyclobenzaprine AdvReac Hypotension Verified 01/03/17 09:30 [From Flexeril] Certification: Further, I certify that my clinical findings support that this patient is homebound (i.e. absences from home require considerable and taxing effort and are for medical reasons or protestant services or infrequently or short duration when for other reasons) because: Homebound Reason: Patient requires assistance of a person or device to safely leave home Attestation: My signature below is to certify that this patient is under my care and that I, or nurse practitioner, or a physician's dietary assistant working with me, has a face-to -face encounter with this patient.
[2018-04-20 10:45] VITALS: BP 154/97
--- NOTE | 2018-04-20 21:16 | Electrocardiograph Report ---
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
== END 2018-04-20 12:54 | disposition home health service (06) | DRG 469 ==
LOC: 2ANU 17:20 → EMEROOARM 17:20 → OBSVTOIN 21:32 → SUATTDRO 21:32 → 2ANU 23:00
PROVIDERS: ADMIT Internal Medicine; ATTEND Family Medicine

== ENCOUNTER 2019-03-09 12:47 | Observation (INO) ==
[2019-03-09] MEDS ORDERED: Isovue-370 500 ML BOTTLE IVP ONE (12:54)
[2019-03-09 13:01] LABS: Hematocrit 35.2 % (37.5-50.1); Hemoglobin 11.4 g/dL (12.9-16.9); Mean Corpuscular HGB Conc 32.4 g/dL (31.6-35.5); Mean Corpuscular Hemoglobin 23.6 pg (28.0-33.3); Mean Corpuscular Volume 72.9 fL (83.0-100.0); Mean Platelet Volume 8.2 fL (9.4-12.4); Platelet Count 378 K/mcL (140-400); Red Blood Count 4.83 M/mcL (4.19-5.50); Red Cell Distribution Width 16.4 % (11.5-14.5); White Blood Count 7.8 K/mcL (4.3-11.1)
[2019-03-09 13:09] LABS: INR 1.1
[2019-03-09 13:11] LABS: Activated Partial Thrombo Time 32.5 Seconds (26.0-36.0)
[2019-03-09 13:20] LABS: BUN/Creatinine Ratio 21 (6-26); Blood Urea Nitrogen 45 mg/dL (8-23); Carbon Dioxide 19 mEq/L (23-29); Chloride 105 mEq/L (98-107); Ethanol < 10 mg/dL (Less than 10); Glucose 95 mg/dL (70-105); Osmolality,Calculated 281 (280-300); Potassium 4.6 mEq/L (3.5-5.1); Sodium 130 mEq/L (136-145); eGFR For African Americans 37 (> 60); eGFR For Non-African Americans 30 (> 60)
[2019-03-09] MEDS ORDERED: 0.9 % Sodium Chloride 1,000 ML IVC ONE (13:26)
[2019-03-09 13:37] LABS: Troponin I < 0.03 ng/mL (< 0.04)
--- NOTE | 2019-03-09 13:50 | Emergency Department Note ---
Disposition Clinical Impression: Ataxia, Confusion Disposition: Admitted As Inpatient Condition: Fair Referrals: NONE,PCP [Primary Care Provider] - Forms: ED Satisfaction Letter Time of Disposition: 15:25 General Adult HPI - General Chief complaint: ED Dizziness Stated complaint: dizzy Time Seen by Provider: 03/09/19 12:52 Source: patient, EMS Mode of arrival: EMS Limitations: no limitations Nursing Notes Reviewed: Yes Vital Signs Reviewed: Yes - History of Present Illness HPI Narrative: 63-year-old male with past medical history of diabetes, hypertension, chronic kidney disease, presents with complaints of weakness that began when he woke up this morning. He should states that when he went to bed everything was fine and he was feeling okay in his apartment was clean. When he woke up this morning he states that his apartment is a mass it looks like someone has made a mess of it and he does not understand why this is happening. Patient does not know what day it is but he does know the month is February. He knows that it is summer. He knows his name and birthdate. He knows that he is in the hospital. Initially a stroke alert was called on the patient to facilitate rapid imaging, which was negative for acute intracranial findings. Patient is denying any symptoms this time except for feeling weak and dizzy. He also states that he is having difficulty making his hands work. Pain Scale: 0 - Related Data Home Medications Medication Instructions Recorded Confirmed Benztropine Mesylate 2 mg PO BID 04/16/18 10/25/18 Carbidopa/Levodopa 25/100 [Sinemet 2 tab PO TID 04/16/18 10/25/18 25/100] hydrOXYzine HCl [Hydroxyzine HCl] 25 mg PO QID PRN 04/16/18 10/25/18 traZODone [TraZODone] 50 - 100 mg PO HS 04/16/18 10/25/18 Atorvastatin [Lipitor] 40 mg PO HS 10/25/18 10/25/18 BuPROPion XL (24 HR) [Wellbutrin 150 mg PO 0900,1400 10/25/18 10/25/18 Xl] Quetiapine Fumarate [Seroquel] 200 mg PO HS 10/25/18 10/25/18 Tamsulosin [Flomax] 0.4 mg PO DAILY 10/25/18 10/25/18 metFORMIN [Glucophage] 500 mg PO BIDWM 10/25/18 10/25/18 Previous Rx's Medication Instructions Recorded ARIPiprazole [Abilify] 10 mg PO DAILY #30 tablet 01/09/17 Allergies Allergy/AdvReac Type Severity Reaction Status Date / Time esomeprazole [From Nexium] Allergy Rash Verified 01/03/17 09:30 Cyclobenzaprine AdvReac Hypotension Verified 01/03/17 09:30 [From Flexeril] Review of Systems: In addition to that documented in the HPI above, the additional ROS was obtained: Constitutional: Denies fevers or chills Eyes: Denies vision changes Reports baseline issues with vision that have not changed ENMT: Denies sore throat CV: Denies chest pain Resp: Denies new SOB GI: Denies vomiting or diarrhea : Denies painful urination MSK: Denies recent trauma Skin: Denies new rashes Neuro: Reports new weakness, dizziness, difficulty controlling both hands Endocrine: Denies unexpected weight loss Heme: Denies bleeding disorders Past Medical History - Past Medical History Medical history: Reports: non-contributory, asthma, coronary artery disease, diabetes, hypertension, myocardial infarction, TIA, other Surgical history: Reports: angioplasty/stent, other Psychiatric history: Reports: depression, schizophrenia - Social History Smoking Status: Never smoker Smokeless Tobacco Status: No Alcohol use: Reports: none Drug use: Reports: none Physical Exam General: A&O x 3 - knows month, but not day. Alert to person and place. No acute distress. Disheveled. Appears unkempt. Head: atraumatic, normocephalic. ENT: No conjunctival injection, no scleral icterus. PERRLA. EOMI. Oropharynx non- erythematous. mucous membranes dry. Neuro: No focal deficits, no speech deficit, no facial droop, mentating well. BUE/BLE Str 5/5. Andrew UE/LE sensation intact. CN II-XII intact. Cerebellar testing with [id number] intact, finger to nose on right is not intact, and finger to nose on left is initially intact and then pt states he cannot complete the exam beyond the first test. Pulm: Lungs CTAB A/P. No wheezes, rales, ronchi. Cardio: RRR no m/r/g. Chest not tender to palpation. Abd: Soft, non-distended. Normoactive bowel sounds. Tender to palpation in RLQ, LLQ, and suprapubic areas. No guarding. Non rigid. Extremities: Radial pulses 2+ andrew, dorsalis pedis/posterior tibialis 2+ andrew. No LE edema. No cyanosis, clubbing. Skin: warm, dry, intact. No rashes. Psych: Pts speech is a bit wandering, but he is pleasant and cooperative with the exam. He seems mildly confused. - General Limitations: no limitations General appearance: alert, in no apparent distress Course Vital Signs Pulse Rate 103 03/09/19 12:48 Respiratory Rate 16 03/09/19 12:48 Blood Pressure 111/68 03/09/19 12:48 Temperature 98.2 F 03/09/19 12:53 Pulse Rate 94 03/09/19 14:17 Respiratory Rate 16 03/09/19 14:17 Blood Pressure 93/62 03/09/19 14:17 O2 Sat by Pulse Oximetry 97 03/09/19 12:53 Oxygen Delivery Oxygen Delivery Room Air Medical Decision Making - [facility] Narrative Medical decision making narrative: 63-year-old male that presents with altered mental status, who does not appear to be an acute stroke but would benefit from further inpatient workup of his neurologic symptoms. Patient's lab work was remarkable for a sodium of 1:30, however he has had sodiums this low in the past. His creatinine was elevated at 2.19 however he has been elevated higher than this in the past given his chronic kidney disease. Imaging was negative for any acute intracranial findings. Chest x-ray did not reveal any acute cardiopulmonary findings. Patient was admitted to the hospitalist Dr. Rivers who agreed to accept the patient to his service. Results of the workup including any imaging and/or labwork was shared with the patient at bedside. Patient was given an opportunity to ask questions at bedside and all of their concerns were addressed. Patient verbalized understanding and agreement with plan of care. Pt remained stable while in the department. - Medical Records Medical records reviewed: Yes I reviewed the patient's medical records. - Lab Data Lab results reviewed: Yes I reviewed the patient's lab results. Result diagrams: 03/09/19 12:54 03/09/19 12:54 Lab Results 07/24/19 07/24/19 07/24/19 Range/Units 12:54 12:54 12:54 WBC 7.8 (4.3-11.1) K/mcL RBC 4.83 (4.19-5.50) M/mcL Hgb 11.4 L (12.9-16.9) g/dL Hct 35.2 L (37.5-50.1) % MCV 72.9 L (83.0-100.0) fL MCH 23.6 L (28.0-33.3) pg MCHC 32.4 (31.6-35.5) g/dL RDW 16.4 H (11.5-14.5) % Plt Count 378 (140-400) K/mcL MPV 8.2 L (9.4-12.4) fL PT 13.0 H (9.4-12.1) Seconds INR 1.1 APTT 32.5 (26.0-36.0) Seconds Sodium 130 L (136-145) mEq/L Potassium 4.6 (3.5-5.1) mEq/L Chloride 105 (98-107) mEq/L Carbon Dioxide 19 L (23-29) mEq/L BUN 45 H (8-23) mg/dL Creatinine 2.19 H (0.70-1.30) mg/dL Est GFR ( Amer) 37 L (> 60) Est GFR (Non-Af Amer) 30 L (> 60) BUN/Creatinine Ratio 21 (6-26) Glucose 95 (70-105) mg/dL Calculated Osmolality 281 (280-300) Calcium 9.0 (8.6-10.3) mg/dL Ammonia (16-53) mcmol/L Troponin I < 0.03 (< 0.04) ng/mL Urine Color (Yellow) Urine Clarity (Clear) Urine pH (5.0-8.0) pH Units Ur Specific [place] (1.010-1.025) Urine Protein (Neg-Trace) mg/dL Urine Glucose (UA) (Normal) mg/dL Urine Ketones (Negative) mg/dL Urine Blood (Negative) Urine Nitrite (Negative) Urine Bilirubin (Negative) Urine Urobilinogen (Normal) mg/dL Ur Leukocyte Esterase (Negative) Urine Microscopic RBC (0-3) per hpf Urine Microscopic WBC (0-3) per hpf Ur Squamous Epith Cells (None-Few) per lpf Urine Bacteria (None-Few) per hpf Hyaline Casts (None-Few) per lpf Ur Culture Indicated? (NO) Ethyl Alcohol < 10 (Less than 10) mg/dL 03/09/19 03/09/19 Range/Units 14:09 14:30 WBC (4.3-11.1) K/mcL RBC (4.19-5.50) M/mcL Hgb (12.9-16.9) g/dL Hct (37.5-50.1) % MCV (83.0-100.0) fL MCH (28.0-33.3) pg MCHC (31.6-35.5) g/dL RDW (11.5-14.5) % Plt Count (140-400) K/mcL MPV (9.4-12.4) fL PT (9.4-12.1) Seconds INR APTT (26.0-36.0) Seconds Sodium (136-145) mEq/L Potassium (3.5-5.1) mEq/L Chloride (98-107) mEq/L Carbon Dioxide (23-29) mEq/L BUN (8-23) mg/dL Creatinine (0.70-1.30) mg/dL Est GFR ( Amer) (> 60) Est GFR (Non-Af Amer) (> 60) BUN/Creatinine Ratio (6-26) Glucose (70-105) mg/dL Calculated Osmolality (280-300) Calcium (8.6-10.3) mg/dL Ammonia 40 (16-53) mcmol/L Troponin I (< 0.04) ng/mL Urine Color Yellow (Yellow) Urine Clarity Cloudy A (Clear) Urine pH 6.0 (5.0-8.0) pH Units Ur Specific [place] 1.014 (1.010-1.025) Urine Protein 30 H (Neg-Trace) mg/dL Urine Glucose (UA) Normal (Normal) mg/dL Urine Ketones Negative (Negative) mg/dL Urine Blood Moderate H (Negative) Urine Nitrite Negative (Negative) Urine Bilirubin Negative (Negative) Urine Urobilinogen Normal (Normal) mg/dL Ur Leukocyte Esterase Moderate H (Negative) Urine Microscopic RBC 15-30 H (0-3) per hpf Urine Microscopic WBC 15-30 H (0-3) per hpf Ur Squamous Epith Cells Many H (None-Few) per lpf Urine Bacteria None Seen (None-Few) per hpf Hyaline Casts None Seen (None-Few) per lpf Ur Culture Indicated? YES A (NO) Ethyl Alcohol (Less than 10) mg/dL - Radiology Data Radiology results reviewed: Yes I reviewed the patient's radiology results. Head CT 03/09/19 12:54 IMPRESSION: No acute intracranial abnormality. Critical results were called by Dr. Zach Galaviz MD to Trace Torres DO on 03/09/2019 at 13:09. D/ / Zach Galaviz MD / Zach Galaviz MD Interpreting Provider: Zach Galaviz MD Head CTA 03/09/19 12:54 IMPRESSION: No high-grade stenosis or focal occlusion involving the intracranial or cervical vasculature. No evidence of acute dissection. No evidence of aneurysm. Nonspecific 7 mm pulmonary nodule within the left lung apex. Recommend follow-up chest CT, non-emergently. Enlarged main pulmonary artery suggestive of chronic pulmonary hypertension. D/ / 03/09/2019 13:53:48 Randy Patel MD / kishor Interpreting Provider: Randy Patel MD Neck CTA 03/09/19 12:55 IMPRESSION: No high-grade stenosis or focal occlusion involving the intracranial or cervical vasculature. No evidence of acute dissection. No evidence of aneurysm. Nonspecific 7 mm pulmonary nodule within the left lung apex. Recommend follow-up chest CT, non-emergently. Enlarged main pulmonary artery suggestive of chronic pulmonary hypertension. D/ / 03/09/2019 13:53:48 Randy Patel MD / kishor Interpreting Provider: Randy Patle MD Attestation Statement - Attestation Attestation: I, Trace Torres DO, examined this patient [id number] and my medical decision-making was reviewed with Dr. Carrie Summers, Resident Physician. I agree with the documented findings, disposition and treatment plan as described except to the extent set forth below. I personally supervised and was present for the thomas/critical portions of the procedures completed by the resident documented below. Please see my progress notes for details.
[2019-03-09 14:23] LABS: Bilirubin,Urine Negative (Negative); Blood,Urine Moderate (Negative); Clarity,Urine Cloudy (Clear); Color,Urine Yellow (Yellow); Glucose,Urine (UA) Normal (Normal); Ketones,Urine Negative (Negative); Leukocyte Esterase,Urine Moderate (Negative); Nitrite,Urine Negative (Negative); Protein,Urine 30 mg/dL (Neg-Trace); Specific Gravity,Urine 1.014 (1.010-1.025); Urobilinogen,Urine Normal (Normal)
[2019-03-09 14:28] LABS: Bacteria,Urine None Seen per hpf (None-Few); Hyaline Casts,Urine None Seen per lpf (None-Few); RBC,Urine 15-30 per hpf (0-3); Squamous Epithelial Cell,Urine Many per lpf (None-Few); WBC,Urine 15-30 per hpf (0-3)
--- NOTE | 2019-03-09 14:54 | Emergency Department Note ---
Disposition Clinical Impression: Ataxia, Confusion Disposition: Admitted As Inpatient Condition: Fair Time of Disposition: 15:43 General Adult HPI - General Chief complaint: ED Dizziness Stated complaint: dizzy Time Seen by Provider: 03/09/19 12:52 Source: patient, EMS Mode of arrival: EMS Limitations: no limitations - History of Present Illness Pain Scale: 0 - Related Data Home Medications Medication Instructions Recorded Confirmed Benztropine Mesylate 2 mg PO BID 04/16/18 10/25/18 Carbidopa/Levodopa 25/100 [Sinemet 2 tab PO TID 04/16/18 10/25/18 25/100] hydrOXYzine HCl [Hydroxyzine HCl] 25 mg PO QID PRN 04/16/18 10/25/18 traZODone [TraZODone] 50 - 100 mg PO HS 04/16/18 10/25/18 Atorvastatin [Lipitor] 40 mg PO HS 10/25/18 10/25/18 BuPROPion XL (24 HR) [Wellbutrin 150 mg PO 0900,1400 10/25/18 10/25/18 Xl] Quetiapine Fumarate [Seroquel] 200 mg PO HS 10/25/18 10/25/18 Tamsulosin [Flomax] 0.4 mg PO DAILY 10/25/18 10/25/18 metFORMIN [Glucophage] 500 mg PO BIDWM 10/25/18 10/25/18 Previous Rx's Medication Instructions Recorded ARIPiprazole [Abilify] 10 mg PO DAILY #30 tablet 01/09/17 Allergies Allergy/AdvReac Type Severity Reaction Status Date / Time esomeprazole [From Nexium] Allergy Rash Verified 01/03/17 09:30 Cyclobenzaprine AdvReac Hypotension Verified 01/03/17 09:30 [From Flexeril] Past Medical History - Past Medical History Medical history: Reports: non-contributory, asthma, coronary artery disease, diabetes, hypertension, myocardial infarction, TIA, other Surgical history: Reports: angioplasty/stent, other Psychiatric history: Reports: depression, schizophrenia - Social History Smoking Status: Never smoker Smokeless Tobacco Status: No Alcohol use: Reports: none Drug use: Reports: none Physical Exam - General Limitations: no limitations General appearance: alert, in no apparent distress Course Vital Signs Pulse Rate 103 03/09/19 12:48 Respiratory Rate 16 03/09/19 12:48 Blood Pressure 111/68 03/09/19 12:48 Temperature 98.2 F 03/09/19 12:53 Pulse Rate 94 03/09/19 14:17 Respiratory Rate 16 03/09/19 14:17 Blood Pressure 93/62 03/09/19 14:17 O2 Sat by Pulse Oximetry 97 03/09/19 12:53 Oxygen Delivery Oxygen Delivery Room Air Medical Decision Making - Lab Data Result diagrams: 03/09/19 12:54 03/09/19 12:54 Lab Results 03/09/19 03/09/19 03/09/19 Range/Units 12:54 12:54 12:54 WBC 7.8 (4.3-11.1) K/mcL RBC 4.83 (4.19-5.50) M/mcL Hgb 11.4 L (12.9-16.9) g/dL Hct 35.2 L (37.5-50.1) % MCV 72.9 L (83.0-100.0) fL MCH 23.6 L (28.0-33.3) pg MCHC 32.4 (31.6-35.5) g/dL RDW 16.4 H (11.5-14.5) % Plt Count 378 (140-400) K/mcL MPV 8.2 L (9.4-12.4) fL PT 13.0 H (9.4-12.1) Seconds INR 1.1 APTT 32.5 (26.0-36.0) Seconds Sodium 130 L (136-145) mEq/L Potassium 4.6 (3.5-5.1) mEq/L Chloride 105 (98-107) mEq/L Carbon Dioxide 19 L (23-29) mEq/L BUN 45 H (8-23) mg/dL Creatinine 2.19 H (0.70-1.30) mg/dL Est GFR ( Amer) 37 L (> 60) Est GFR (Non-Af Amer) 30 L (> 60) BUN/Creatinine Ratio 21 (6-26) Glucose 95 (70-105) mg/dL Calculated Osmolality 281 (280-300) Calcium 9.0 (8.6-10.3) mg/dL Ammonia (16-53) mcmol/L Troponin I < 0.03 (< 0.04) ng/mL Urine Color (Yellow) Urine Clarity (Clear) Urine pH (5.0-8.0) pH Units Ur Specific [place] (1.010-1.025) Urine Protein (Neg-Trace) mg/dL Urine Glucose (UA) (Normal) mg/dL Urine Ketones (Negative) mg/dL Urine Blood (Negative) Urine Nitrite (Negative) Urine Bilirubin (Negative) Urine Urobilinogen (Normal) mg/dL Ur Leukocyte Esterase (Negative) Urine Microscopic RBC (0-3) per hpf Urine Microscopic WBC (0-3) per hpf Ur Squamous Epith Cells (None-Few) per lpf Urine Bacteria (None-Few) per hpf Hyaline Casts (None-Few) per lpf Ur Culture Indicated? (NO) Ethyl Alcohol < 10 (Less than 10) mg/dL 03/09/19 03/09/19 Range/Units 14:09 14:30 WBC (4.3-11.1) K/mcL RBC (4.19-5.50) M/mcL Hgb (12.9-16.9) g/dL Hct (37.5-50.1) % MCV (83.0-100.0) fL MCH (28.0-33.3) pg MCHC (31.6-35.5) g/dL RDW (11.5-14.5) % Plt Count (140-400) K/mcL MPV (9.4-12.4) fL PT (9.4-12.1) Seconds INR APTT (26.0-36.0) Seconds Sodium (136-145) mEq/L Potassium (3.5-5.1) mEq/L Chloride (98-107) mEq/L Carbon Dioxide (23-29) mEq/L BUN (8-23) mg/dL Creatinine (0.70-1.30) mg/dL Est GFR ( Amer) (> 60) Est GFR (Non-Af Amer) (> 60) BUN/Creatinine Ratio (6-26) Glucose (70-105) mg/dL Calculated Osmolality (280-300) Calcium (8.6-10.3) mg/dL Ammonia 40 (16-53) mcmol/L Troponin I (< 0.04) ng/mL Urine Color Yellow (Yellow) Urine Clarity Cloudy A (Clear) Urine pH 6.0 (5.0-8.0) pH Units Ur Specific [place] 1.014 (1.010-1.025) Urine Protein 30 H (Neg-Trace) mg/dL Urine Glucose (UA) Normal (Normal) mg/dL Urine Ketones Negative (Negative) mg/dL Urine Blood Moderate H (Negative) Urine Nitrite Negative (Negative) Urine Bilirubin Negative (Negative) Urine Urobilinogen Normal (Normal) mg/dL Ur Leukocyte Esterase Moderate H (Negative) Urine Microscopic RBC 15-30 H (0-3) per hpf Urine Microscopic WBC 15-30 H (0-3) per hpf Ur Squamous Epith Cells Many H (None-Few) per lpf Urine Bacteria None Seen (None-Few) per hpf Hyaline Casts None Seen (None-Few) per lpf Ur Culture Indicated? YES A (NO) Ethyl Alcohol (Less than 10) mg/dL Attestation Statement - Attestation Attestation: I, Trace Torres DO, examined this patient [id number] and my medical decision-making was reviewed with Dr. Carrie Summers, Resident Physician. I agree with the documented findings, disposition and treatment plan as described except to the extent set forth below. I personally supervised and was present for the thomas/critical portions of the procedures completed by the resident documented below. Please see my progress notes for details. 63-year-old male presents emergency room with describes symptoms of ataxia or weakness and decreased strength in his extremities after waking this morning. Patient's had this happen in the past was never a formal diagnosis. He went to bed last night normal according to him. Patient denies any chest pain or shortness of breath. He has not had any fevers or chills. Currently denying nausea vomiting or diarrhea. He does have intermittent headache but no active headache at this time. No fevers no chills. He has not fallen or injured himself. Patient is alert he is answering questions. On my initial physical exam there is visible left-sided facial droop along with weakness against gravit y in the left upper extremity and left lower extremity. She had a stroke protocol immediately on arrival. Patient is a wake-up stroke at this time just time frame is less than 24 hours and is potential candidate for clot removal and retrieval. Patient CT CT angiography of the head and neck ordered on initial presentation as well screening labs for other potential metabolic infectious etiology. Physical exam shows a well-appearing male. He does not appear to be in any specific distress. Pupils are equal round reactive extracted muscles are intact. Cranial nerves II through XII are intact. Oropharynx is patent soft tissue is symmetrical. Lungs are clear heart is regular abdomen is soft. Patient has no point tenderness guarding rigidity or peritoneal symptoms at this time. Disposition pending full workup and evaluation and consultation with the [facility]. EKG is reviewed by myself and documented was not physician's note. See detailed documentation the physical exam, medical intervention, medical decision-making and disposition the resident physician's documentation. No critical care applied the patient's treatment course at this time. [address] [facility] neurologist Dr. Martins and I reviewed the case via phone. Imaging was negative. No other concerns and them at this time the patient is not a TPA candidate. His NIH stroke scale evaluation is a 2 at this point. Patient will be admitted for further neurological evaluation here in the hospital setting. Any other medical related issues will be addressed. Disposition will be admission wants a full workup has been completed. Patient CT angiography of the head and the neck are unremarkable. Admission process to be completed at this time. The hospitalist Dr. Rivers reviewed the case. No other recommendations or concerns. Aspirin was given to the patient patient is otherwise stable. Admission process to be established at this time. No other acute etiology noted during the treatment course. Chronic renal insufficiency was discussed with the hospitalist and they will follow his GFR and creatinine appropriately.
[2019-03-09] MEDS ORDERED: Aspirin 81 MG TAB.CHEW PO STA (15:42)
[2019-03-09] MEDS ORDERED: Naloxone 0.4 MG/ML INJ IVP PRN (15:57)
[2019-03-09] MEDS ORDERED: Ondansetron 4 MG/2 ML VIAL IVP PRN (15:57)
[2019-03-09] MEDS ORDERED: D5% in Water 1,000 ML IVC PRN (16:04)
[2019-03-09] MEDS ORDERED: *HR* Dextrose 50 % in Water (Syg) 50 ML SYRINGE IVP PRN (16:04)
[2019-03-09] MEDS ORDERED: Dextrose Gel 15 GM/37.5 ML TUBE PO PRN ×2 (16:04)
--- NOTE | 2019-03-09 16:17 | Internal Med History&Physical ---
Date of Encounter: 03/09/19 Time of Encounter: 16:00 Internal Medicine - H&P: HPI Chief complaint: weakness Admitted From: Home Plans for Post Hospital Care: Home History of present illness: Mr. Walters is a 63 year old male with Hx of CKD stage III, T2DM, schizophrenia, hydronephrosis s/p bilateral ureteral stent insertion on 10/28 who came in to the hospital due to weakness and dizziness. His symptoms started this morning after he woke up and start walking to the bathroom when he felt weak, dizzy and lightheaded. Patient was about to fall but he did not. He usually uses cane when he walks. He describes his dizziness as lightheadedness. He denied any vision changes. His dizziness is not related to his head movements. He also noted that when his hip to his room was clean and neat however when he woke up h e noted that his room was a mess. Patient denied chest pain/shortness of breath/palpitations/nausea/vomiting/abdominal pain/dysuria however he noted urinary frequency and hesitancy but could not specify since when. He denied any focal neurological weakness however he generally feels weak. He had no fever, chills or night sweats. He is not a good historian. Initially there was a concern for stroke for stroke alert was called. Head and neck CTA was unremarkable. Case was discussed with the stroke team who did not recommend further imaging or workup. Patient was evaluated for weakness and balance problems back in 2018 by neurology service and [facility] and his symptoms were related to his high doses of Abilify and Cogentin. Upon arrival, patient was slightly tachycardic heart rate 108, blood pressure 93/62. Laboratory workup was significant for BUN 45, creatinine 2.19, sodium 1:30. His UA was cloudy with positive RBCs and WBCs and leukocyte esterase. Urine cultures obtained. Patient to see if IV fluids in the ER. Past Med Surg Social Fam HX - Past Medical History Source: patient, old records reviewed Medical history: non-contributory, asthma, coronary artery disease, diabetes, hypertension, myocardial infarction, TIA, other Additional medical history: Parkinson's Psychiatric history: depression, schizophrenia - Past Surgical History Surgical History: angioplasty/stent, other Additional surgical history: Carpal tunnel. 1 cardiac stent - Social History Smoking Status: Never smoker Smokeless Tobacco Status: No Alcohol use: none Drug use: none Activity Level: Uses cane/walker Recent Out of Country Travel Within the Last 8 Weeks: No Exposure or Possible Exposure to Illness During Travel: No - Family History Mother Adopted: No Family Member Ethnicity: Non- Living Status: Hx Family Cardiac Disorders: No Hx Family Respiratory Disorders: No Hx Family Cancer: No Hx Family GI Disorders: No Hx Family Endocrine Disorder: No Hx Family Neuromuscular Disorders: No Hx Family Neurologic Disorders: No Hx Family HEENT Disorders: No Hx Family Autoimmune Disorders: No Father Family Member Ethnicity: Non- Living Status: Hx Family Cardiac Disorders: Yes Hx Family Respiratory Disorders: Yes Hx Family Cancer: No Hx Family GI Disorders: No Hx Family Endocrine Disorder: No Hx Family Neuromuscular Disorders: No Hx Family Neurologic Disorders: No Hx Family HEENT Disorders: No Hx Family Autoimmune Disorders: No - Additional Family History Additional family history: No family history of strokes Internal Medicine - H&P: Meds ARIPiprazole [Abilify] 10 mg PO DAILY #30 tablet 01/09/17 [Rx] Benztropine Mesylate 2 mg PO BID 04/16/18 [History] Carbidopa/Levodopa 25/100 [Sinemet 25/100] 2 tab PO TID 04/16/18 [History] hydrOXYzine HCl [Hydroxyzine HCl] 25 mg PO QID PRN 04/16/18 [History] traZODone [TraZODone] 50 - 100 mg PO HS 04/16/18 [History] Atorvastatin [Lipitor] 40 mg PO HS 10/25/18 [History] BuPROPion XL (24 HR) [Wellbutrin Xl] 150 mg PO 0900,1400 10/25/18 [History] Quetiapine Fumarate [Seroquel] 200 mg PO HS 10/25/18 [History] Tamsulosin [Flomax] 0.4 mg PO DAILY 10/25/18 [History] metFORMIN [Glucophage] 500 mg PO BIDWM 10/25/18 [History] Allergy/AdvReac Type Severity Reaction Status Date / Time esomeprazole [From Nexium] Allergy Rash Verified 01/03/17 09:30 Cyclobenzaprine AdvReac Hypotension Verified 01/03/17 09:30 [From Flexeril] All Systems PM: A 10-system review of systems was performed and is negative for pertinent findings except as documented above in the HPI. - Constitutional Vitals: Temp Pulse Resp BP Pulse Ox 98.2 F 94 16 93/62 97 03/09/19 12:53 03/09/19 14:17 03/09/19 14:17 03/09/19 14:17 03/09/19 12:53 Exam: General: Patient is alert, oriented 3. No distress Head: Atraumatic, normal inspection, normocephalic. Eye: EOMI, PERRLA, no scleral icterus noted. ENT: Mucous membranes moist. No odontogenic infection noted. Neck: Normal inspection, no meningismus. Respiratory: No respiratory distress, rhonchi, or wheezes noted. Cardiovascular: Regular rate and regular rhythm, S1 and S2 audible. No murmurs, rubs, or gallops. GI: Soft, nondistended, normal bowel sounds. Extremities:No joint swelling, pedal edema, or tenderness noted. Neurological: Alert, oriented 3, CN II-XII is intact, strength in LE is 4/5, 5/5 in UE, sensation are intact all over. Knee reflexes are somehow diminished Psychiatric: normal affect, normal mood. Skin: erythema noted underneath skin abdominal skin folds.. Internal Med - H&P Results - Labs CBC & Chem 7: 03/09/19 12:54 03/09/19 12:54 Labs: Short CBC 03/09/19 Range/Units 12:54 WBC 7.8 (4.3-11.1) K/mcL Hgb 11.4 L (12.9-16.9) g/dL Hct 35.2 L (37.5-50.1) % Plt Count 378 (140-400) K/mcL BMP 03/09/19 12:54 Sodium 130 L Potassium 4.6 Chloride 105 Carbon Dioxide 19 L BUN 45 H Creatinine 2.19 H Glucose 95 Calcium 9.0 Cardiac Enzymes 03/09/19 Range/Units 12:54 Troponin I < 0.03 (< 0.04) ng/mL Urine 03/09/19 Range/Units 14:09 Urine Color Yellow (Yellow) Urine Clarity Cloudy A (Clear) Urine pH 6.0 (5.0-8.0) pH Units Ur Specific [place] 1.014 (1.010-1.025) Urine Protein 30 H (Neg-Trace) mg/dL Urine Glucose (UA) Normal (Normal) mg/dL - EKG Data -: EKG Interpreted by Myself - EKG Data Prior EKG available for review: yes - Impressions ITS Impressions Head CT 03/09/19 12:54 IMPRESSION: No acute intracranial abnormality. Critical results were called by Dr. Zach Galaviz MD to Trace Torres DO on 03/09/2019 at 13:09. D/ / Zahc Galaviz MD / Zach Galaviz MD Interpreting Provider: Zach Galaviz MD Head CTA 03/09/19 12:54 IMPRESSION: No high-grade stenosis or focal occlusion involving the intracranial or cervical vasculature. No evidence of acute dissection. No evidence of aneurysm. Nonspecific 7 mm pulmonary nodule within the left lung apex. Recommend follow-up chest CT, non-emergently. Enlarged main pulmonary artery suggestive of chronic pulmonary hypertension. D/ / 03/09/2019 13:53:48 Randy Patel MD / [facility] Interpreting Provider: Randy Patel MD Neck CTA 03/09/19 12:55 IMPRESSION: No high-grade stenosis or focal occlusion involving the intracranial or cervical vasculature. No evidence of acute dissection. No evidence of aneurysm. Nonspecific 7 mm pulmonary nodule within the left lung apex. Recommend follow-up chest CT, non-emergently. Enlarged main pulmonary artery suggestive of chronic pulmonary hypertension. D/ / 03/09/2019 13:53:48 Randy Patel MD / [facility] Interpreting Provider: Randy Patel MD - Diagnostic Studies CT scan - head Status: image reviewed by me - Assessment and Plan (1) Confusion Current Visit: Yes Status: Resolved (2) Acute kidney injury superimposed on CKD Current Visit: Yes Status: Acute (3) DVT prophylaxis Current Visit: No Status: Acute (4) Dizziness on standing Current Visit: Yes Status: Acute (5) Urinary tract infection Current Visit: Yes Status: Acute Qualifiers: Urinary tract infection type: site unspecified Hematuria presence: with hematuria Qualified Code(s): N39.0 - Urinary tract infection, site not specified; R31.9 - Hematuria, unspecified (6) Diabetes mellitus Current Visit: Yes Status: Chronic Qualifiers: Diabetes mellitus type: type 2 Diabetes mellitus terminal supervisor insulin use: without assisted use Diabetes mellitus complication status: with hyperglycemia Qualified Code(s): E11.65 - Type 2 diabetes mellitus with hyperglycemia (7) Hyponatremia Current Visit: Yes Status: Acute - Summary of Assessment and Plan Summary of Assessment and Plan: Mr. Walters is a 63 year old male with Hx of CKD stage III, T2DM, schizophrenia, hydronephrosis s/p bilateral ureteral stent insertion on 10/28 who came in to the hospital due to weakness and dizziness. Dizziness: - suspected polypharmacy being on multiple psych medications. Also dehydration can play a role given his tachycardia and hypotension at presentation. - CTA head and neck was negative for findings of stroke, patient had no focal deficits with physical exam. I am not suspecting TIA at this point. - Will check orthostatic vitals if he is able to stand, conuslt pt/ot based on his RN grace. - Will give IVF for possible dehydration. UTI: - Patient had positive UA with hematuria. Had multiple UTIs in the past. - He has polyuria and hesitancy - We will start him on Bactrim MIGUELANGEL on CKD stage III: - Cr BL ~ 1.9, today 2.19. - will give IV fluid and check BMP tomorrow. Patient had contrast today. - Check urine sodium and creatinine. Monitor input and output. - Bladder scan, check post void residual. Hyponatremia: - Sodium is 130, etiology could be dehydration versus SIADH. - Will give IVF for today, check BMP tomorrow. - Check URINE sodium and osmolarity. T2DM: - On metformin at home, DC. - Sliding-scale insulin, Accu-Cheks TIDAC. ADA DIET Schizophrenia: - Patient is on multiple psych medications. We will pharmacy to confirm his medication before reconsiling them. Parkinson disease: - Continue home medication. Lung nodule: - Incidental finding on CT scan. Follow-up as outpatient is recommended. DT prophylaxis: Subcutaneous heparin. CODE STATUS: Full code - - Time Spent With Patient Total time spent is greater than 50% in coordination of care (as documented) at patient's floor/unit and/or counseling patient:
[2019-03-09] MEDS: Insulin LISPRO 300 UNITS/3 ML VIAL SQ SCH (16:56)
[2019-03-09] MEDS: *HR* Heparin 5,000 UNIT/ML VIAL SQ SCH (17:24)
[2019-03-09] MEDS: 0.9 % Sodium Chloride 1,000 ML IVC SCH (17:24)
[2019-03-09 19:56] LABS: Amphetamine Screen,Urine Negative ng/mL (Cutoff=1000); Barbiturate Screen,Urine Negative ng/mL (Cutoff=200); Benzodiazepines Screen,Urine Negative ng/mL (Cutoff=200); Cannabinoid Screen,Urine Negative ng/mL (Cutoff = 50); Cocaine Screen,Urine Negative ng/mL (Cutoff= 300); Creatinine,Urine 39 mg/dL; Opiate Screen,Urine Negative ng/mL (Cutoff=300); Phencyclidine Screen,Urine Negative ng/mL (Cutoff=25); Sodium, Urine 23.2 mEq/L
[2019-03-09] MEDS ORDERED: Insulin LISPRO 300 UNITS/3 ML VIAL SQ SCH (21:00)
[2019-03-09] MEDS: Carbidopa/Levodopa 25/100 TABLET PO SCH (21:40)
[2019-03-09] MEDS: Nystatin POWDER 30 GM BOTTLE TP SCH (23:28)
[2019-03-10 05:26] LABS: Basophils % 0.6 %; Eosinophils # 0.3 K/mcL (0.0-0.6); Eosinophils % 5.1 %; Hematocrit 37.6 % (37.5-50.1); Hemoglobin 11.9 g/dL (12.9-16.9); Immature Granulocytes % 0.2 % (0-4); Lymphocytes % 16.4 %; Mean Corpuscular HGB Conc 31.6 g/dL (31.6-35.5); Mean Corpuscular Hemoglobin 23.5 pg (28.0-33.3); Mean Corpuscular Volume 74.2 fL (83.0-100.0); Mean Platelet Volume 8.4 fL (9.4-12.4); Monocytes # 0.8 K/mcL (0.0-1.3); Monocytes % 12.4 %; Neutrophils # 4.1 K/mcL (1.6-8.9); Platelet Count 394 K/mcL (140-400); Red Blood Count 5.07 M/mcL (4.19-5.50); Red Cell Distribution Width 16.8 % (11.5-14.5); Segmented Neutrophils % 65.3 %; White Blood Count 6.2 K/mcL (4.3-11.1)
[2019-03-10 05:44] LABS: Calcium 8.7 mg/dL (8.6-10.3); Chol/HDL Ratio 3.6 (0-4.9); Potassium 4.3 mEq/L (3.5-5.1)
[2019-03-10] MEDS: *HR* Heparin 5,000 UNIT/ML VIAL SQ SCH (06:12)
[2019-03-10] MEDS: 0.9 % Sodium Chloride 1,000 ML IVC SCH (07:06)
[2019-03-10] MEDS: Insulin LISPRO 300 UNITS/3 ML VIAL SQ SCH ×2 (07:53→11:16)
[2019-03-10] MEDS: Carbidopa/Levodopa 25/100 TABLET PO SCH (08:06)
--- NOTE | 2019-03-10 08:06 | Internal Med Progress Note ---
Hospitalist Progress Note - Encounter Date of Encounter: 03/10/19 - Exam Vitals: Temp Pulse Resp BP Pulse Ox 97.9 F 83 16 118/75 97 03/10/19 07:18 03/10/19 07:18 03/10/19 07:18 03/10/19 07:18 03/10/19 07:18 Exam: Gen: Vitals noted. No acute distress. Non-toxic appearing, sitting comfortably in bed Eyes: anicteric sclerae, moist conjunctivae Head: Atraumatic, normocephalic Neck: Trachea midline; supple Cardiac: RRR, no murmur, +S1/S2 Pulmonary: CTA bilaterally, no wheezes, rales or rhonchi, equal chest expansion Abdomen: soft, nontender, no guarding. normal bowel sounds. Extremities: no BLE edema, nontender calf, no cyanosis or clubbing Skin: Warm, dry, intact; no rash or lesions noted Neuro: moves all extremities, no focal deficits noted Psych: Appropriate mood and behavior. A&Ox3 - Assessment and Plan (1) Dizziness on standing Current Visit: Yes Status: Acute (2) Urinary tract infection Current Visit: Yes Status: Acute (3) Schizophrenia Current Visit: No Status: Chronic (4) Type 2 diabetes mellitus Current Visit: No Status: Chronic (5) Acute kidney injury superimposed on CKD Current Visit: Yes Status: Resolved (6) Hyponatremia Current Visit: Yes Status: Resolved DVT Prophylaxis: SQ Heparin - Time Spent with Patient Total time spent is greater than 50% in coordination of care (as documented) at patient's floor/unit and/or counseling patient: Internal Medicine: Result - Labs CBC & Chem 7: 03/10/19 04:39 03/10/19 04:39 Labs: Short CBC 03/09/19 03/10/19 Range/Units 12:54 04:39 WBC 7.8 6.2 (4.3-11.1) K/mcL Hgb 11.4 L 11.9 L (12.9-16.9) g/dL Hct 35.2 L 37.6 (37.5-50.1) % Plt Count 378 394 (140-400) K/mcL Neutrophils # 4.1 (1.6-8.9) K/mcL BMP 03/09/19 03/10/19 12:54 04:39 Sodium 130 L 137 Potassium 4.6 4.3 Chloride 105 108 H Carbon Dioxide 19 L 23 BUN 45 H 30 H Creatinine 2.19 H 1.76 H Glucose 95 111 H Calcium 9.0 8.7 Cardiac Enzymes 03/09/19 Range/Units 12:54 Troponin I < 0.03 (< 0.04) ng/mL Urine 03/09/19 Range/Units 14:09 Urine Color Yellow (Yellow) Urine Clarity Cloudy A (Clear) Urine pH 6.0 (5.0-8.0) pH Units Ur Specific [place] 1.014 (1.010-1.025) Urine Protein 30 H (Neg-Trace) mg/dL Urine Glucose (UA) Normal (Normal) mg/dL - ABG Interpretation ABG results: PT/INR, D-dimer PT 13.0 Seconds (9.4-12.1) H 03/09/19 12:54 - Impressions Impressions Head CT 03/09/19 12:54 IMPRESSION: No acute intracranial abnormality. Critical results were called by Dr. Zach Galaviz MD to Trace Torres DO on 03/09/2019 at 13:09. D/ / Zach Galaviz MD / Zach Galaviz MD Interpreting Provider: Zach Galaviz MD Head CTA 03/09/19 12:54 IMPRESSION: No high-grade stenosis or focal occlusion involving the intracranial or cervical vasculature. No evidence of acute dissection. No evidence of aneurysm. Nonspecific 7 mm pulmonary nodule within the left lung apex. Recommend follow-up chest CT, non-emergently. Enlarged main pulmonary artery suggestive of chronic pulmonary hypertension. D/ / 03/09/2019 13:53:48 Randy Patel MD / [facility] Interpreting Provider: Randy Patel MD Neck CTA 03/09/19 12:55 IMPRESSION: No high-grade stenosis or focal occlusion involving the intracranial or cervical vasculature. No evidence of acute dissection. No evidence of aneurysm. Nonspecific 7 mm pulmonary nodule within the left lung apex. Recommend follow-up chest CT, non-emergently. Enlarged main pulmonary artery suggestive of chronic pulmonary hypertension. D/ / 03/09/2019 13:53:48 Randy Patel MD / [facility] Interpreting Provider: Randy Patel MD Chest X-Ray 03/09/19 16:01 IMPRESSION: Increased lung markings at the bilateral infrahilar regions, may be related to mild bronchitis. D/ / Rickie Manzanares MD / Rickie Manzanares MD Interpreting Provider: Rickie Manzanares MD Consult Discharge Plan - Plan Referrals: NONE,PCP [Primary Care Provider] - (2) Urinary tract infection Qualifiers: Urinary tract infection type: site unspecified Hematuria presence: with hematuria Qualified Code(s): N39.0 - Urinary tract infection, site not specified; R31.9 - Hematuria, unspecified (3) Schizophrenia Qualifiers: Schizophrenia type: unspecified Qualified Code(s): F20.9 - Schizophrenia, unspecified (4) Type 2 diabetes mellitus Qualifiers: Diabetes mellitus snf insulin use: without snf use Diabetes mellitus complication status: without complication Qualified Code(s): E11.9 - Type 2 diabetes mellitus without complications
[2019-03-10] MEDS ORDERED: ARIPiprazole 10 MG TABLET PO SCH (09:00)
[2019-03-10 10:03] LABS: Estimated Average Glucose 128 mg/dl
[2019-03-10 10:37] VITALS: BP 127/76
[2019-03-10] MEDS: Nystatin POWDER 30 GM BOTTLE TP SCH (11:09)
--- NOTE | 2019-03-10 13:40 | Electrocardiograph Report ---
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
--- NOTE | 2019-03-10 14:57 | Discharge Summary ---
- NOTES TO OUTPATIENT PROVIDER Notes to Outpatient Provider: Patient started on Minodrin for Orthostatic hypotension. Patient to follow up with Neurology and PCP within 3-5 days to discuss current medications and possible dosage decrease or discontinuation. Orders not resulted at time of discharge: Pending orders 03/09/19 14:09 Culture,Urine [RM] Stat Date of Encounter: 03/10/19 Time of Encounter: 09:10 - Discharge Diagnosis (1) Dizziness on standing Priority: Primary Status: Acute (2) Orthostatic hypotension Priority: Secondary Status: Acute (3) Urinary tract infection Priority: Secondary Status: Suspected Qualifiers: Urinary tract infection type: site unspecified Hematuria presence: with hematuria Qualified Code(s): N39.0 - Urinary tract infection, site not specified; R31.9 - Hematuria, unspecified (4) Schizophrenia Priority: Secondary Status: Chronic Qualifiers: Schizophrenia type: unspecified Qualified Code(s): F20.9 - Schizophrenia, unspecified (5) Type 2 diabetes mellitus Priority: Secondary Status: Chronic Qualifiers: Diabetes mellitus moth exterminator insulin use: without fci use Diabetes mellitus complication status: without complication Qualified Code(s): E11.9 - Type 2 diabetes mellitus without complications (6) Acute kidney injury superimposed on CKD Priority: Secondary Status: Resolved (7) Hyponatremia Priority: Secondary Status: Resolved Hospital course: Mr. Walters is a 63 year old male with history of Parkinson's disease, CKD stage III, Schizophrenia who presented to the ED on 03/09/19 with complaint of confusion, dizziness, and unsteadiness/weakness. Patient was initially tachycardic and hypotensive on presentation but this resolved with fluid resuscitation. Stroke alert was called in the ED. Head and neck CT were unremarkable. [place] team did not recommend further imaging or workup. Patient was admitted for MIGUELANGEL on CKD, possible UTI, and confusion. Patient did not have any focal deficits. Renal function improved with IV fluids back to baseline. Urinalysis was sent for culture, which is still pending, however low suspicion for UTI and patient denies symptoms. Patient did have hematuria, suspected secondary to traumatic catheterization. Orthostatics were completed and positive, patient was started on Minodrin. Confusion, dizziness, and unsteadin ess suspected to be related to Parkinson's disease and possible medication side effects. PT recommended SNF but patient declined and requested Home Health. Patient Patient to follow up with Neurology and PCP for possible medication adjustment. Discharge discussed with: patient - Time Spent with Patient Total time spent providing and/or coordinating discharge services: - Discharge Medications Prescriptions: New Midodrine [ProAmatine] 5 mg PO 0800,1200,1700 #90 tablet Continued ARIPiprazole [Abilify] 10 mg PO DAILY #30 tablet Benztropine Mesylate 2 mg PO BID Carbidopa/Levodopa 25/100 [Sinemet 25/100] 2 tab PO TID hydrOXYzine HCl [Hydroxyzine HCl] 25 mg PO QID PRN PRN Reason: Anxiety traZODone [TraZODone] 50 - 100 mg PO HS BuPROPion XL (24 HR) [Wellbutrin Xl] 150 mg PO 0900,1400 Quetiapine Fumarate [Seroquel] 200 mg PO HS Atorvastatin [Lipitor] 40 mg PO HS metFORMIN [Glucophage] 500 mg PO BIDWM Tamsulosin [Flomax] 0.4 mg PO DAILY Home Medications: ARIPiprazole [Abilify] 10 mg PO DAILY #30 tablet 01/09/17 [Rx] Benztropine Mesylate 2 mg PO BID 04/16/18 [History] Carbidopa/Levodopa 25/100 [Sinemet 25/100] 2 tab PO TID 04/16/18 [History] hydrOXYzine HCl [Hydroxyzine HCl] 25 mg PO QID PRN 04/16/18 [History] traZODone [TraZODone] 50 - 100 mg PO HS 04/16/18 [History] Atorvastatin [Lipitor] 40 mg PO HS 10/25/18 [History] BuPROPion XL (24 HR) [Wellbutrin Xl] 150 mg PO 0900,1400 10/25/18 [History] Quetiapine Fumarate [Seroquel] 200 mg PO HS 10/25/18 [History] Tamsulosin [Flomax] 0.4 mg PO DAILY 10/25/18 [History] metFORMIN [Glucophage] 500 mg PO BIDWM 10/25/18 [History] Midodrine [ProAmatine] 5 mg PO 0800,1200,1700 #90 tablet 03/10/19 [Rx] Allergies/Adverse Reactions: Allergy/AdvReac Type Severity Reaction Status Date / Time esomeprazole [From Nexium] Allergy Rash Verified 01/03/17 09:30 Cyclobenzaprine AdvReac Hypotension Verified 01/03/17 09:30 [From Flexeril] Date of admission: 03/09/19 15:40 Primary care physician: PCP NONE Consults: 03/09/19 17:11 Consult to Occupational Therapy [CONS] Routine Comment: Evaluate, develop and implement POC Reason for Consult: evaluate the need for skilled placement Does patient have active BEDREST order?: No Is patient medically & hemodynamically stable?: Yes 03/09/19 17:12 Consult to Physical Therapy [CONS] Routine Comment: Evaluate, develop and implement POC Reason for Consult: evaluate the need for skilled placement Does patient have active BEDREST order?: No Is patient medically & hemodynamically stable?: Yes 03/10/19 09:53 Consult to Case Management Social Worker [CONS] Routine Reason for SW Consult: history of parkinson's with falls, confusion, dizziness. Patient requesting home health. Discharging clinician: Monie Petersen Anticipated date of discharge: 03/10/19 - Constitutional Vitals: Temp Pulse Resp BP Pulse Ox 97.7 F 105 16 127/76 95 03/10/19 10:37 03/10/19 10:37 03/10/19 10:37 03/10/19 10:37 03/10/19 10:37 Exam: Gen: Vitals noted. No acute distress. Non-toxic appearing, sitting comfortably in bed Eyes: anicteric sclerae, moist conjunctivae Head: Atraumatic, normocephalic Neck: Trachea midline; supple Cardiac: RRR, no murmur, +S1/S2 Pulmonary: CTA bilaterally, no wheezes, rales or rhonchi, equal chest expansion Abdomen: soft, nontender, no guarding. normal bowel sounds. Extremities: no BLE edema, nontender calf, no cyanosis or clubbing Skin: Warm, dry, intact; no rash or lesions noted Neuro: moves all extremities, no focal deficits noted Psych: Appropriate mood and behavior. A&Ox3 - Patient Status Disposition: Home Health Service Condition: Fair Functional capacity at discharge: uses cane/walker Overall status at discharge: patient is progressing back to baseline - Discharge Instructions Follow Up With: Carter Lezama MD [Partnered Physician] - Elisha Gonzales [Advanced Practice Nurse] - - Diet and Activity Activity: increase activity as tolerated Diet: low salt diet
--- NOTE | 2019-03-10 15:21 | Physician Discharge Referral ---
Home Health/Hosp Referral Info Transfer to: Home Health - Diagnosis (1) Dizziness on standing Priority: Primary Status: Acute (2) Urinary tract infection Priority: Secondary Status: Suspected (3) Orthostatic hypotension Priority: Secondary Status: Acute (4) Schizophrenia Priority: Secondary Status: Chronic (5) Type 2 diabetes mellitus Priority: Secondary Status: Chronic (6) Acute kidney injury superimposed on CKD Priority: Secondary Status: Resolved (7) Hyponatremia Priority: Secondary Status: Resolved - Respiratory Orders None Smoking Cessation: Smoking cessation has been advised. For more information, call the [place] Tobacco Quit Line at 2-532-IBRN-NOW. - Diet/Nutrition Diet/Nutrition Orders: Renal - Activity Activity Orders: Ambulate (with cane) - Services Needed Following services are medically necessary services: Home Health Aide, Physical Therapy, Occupational Therapy - Transfer Medications Prescriptions: Midodrine [ProAmatine] 5 mg PO 0800,1200,1700 #90 tablet Home Medications: ARIPiprazole [Abilify] 10 mg PO DAILY #30 tablet 01/09/17 [Rx] Benztropine Mesylate 2 mg PO BID 04/16/18 [History] Carbidopa/Levodopa 25/100 [Sinemet 25/100] 2 tab PO TID 04/16/18 [History] hydrOXYzine HCl [Hydroxyzine HCl] 25 mg PO QID PRN 04/16/18 [History] traZODone [TraZODone] 50 - 100 mg PO HS 04/16/18 [History] Atorvastatin [Lipitor] 40 mg PO HS 10/25/18 [History] BuPROPion XL (24 HR) [Wellbutrin Xl] 150 mg PO 0900,1400 10/25/18 [History] Quetiapine Fumarate [Seroquel] 200 mg PO HS 10/25/18 [History] Tamsulosin [Flomax] 0.4 mg PO DAILY 10/25/18 [History] metFORMIN [Glucophage] 500 mg PO BIDWM 10/25/18 [History] Midodrine [ProAmatine] 5 mg PO 0800,1200,1700 #90 tablet 03/10/19 [Rx] Allergies/Adverse Reactions: Allergy/AdvReac Type Severity Reaction Status Date / Time esomeprazole [From Nexium] Allergy Rash Verified 01/03/17 09:30 Cyclobenzaprine AdvReac Hypotension Verified 01/03/17 09:30 [From Flexeril] Certification: Further, I certify that my clinical findings support that this patient is homebound (i.e. absences from home require considerable and taxing effort and are for medical reasons or mosque services or infrequently or short duration when for other reasons) because: Homebound Reason: Patient requires assistance of a person or device to safely leave home Attestation: My signature below is to certify that this patient is under my care and that I, or nurse practitioner, or a physician's orthopedic assistant working with me, has a [id number] encounter with this patient.
== END 2019-03-10 17:14 | disposition home health service (06) ==
LOC: EMEROOARM 12:47 → 2ANU 12:47 → SUATTDRO 15:40 → 2ANU 16:21
PROVIDERS: ADMIT Internal Medicine; ATTEND Internal Medicine

== ENCOUNTER 2019-03-15 14:14 | Inpatient (IN) ==
--- NOTE | 2019-03-15 15:01 | Emergency Department Note ---
Disposition Clinical Impression: Weakness UTI (urinary tract infection) Qualifiers: Urinary tract infection type: acute cystitis Hematuria presence: without hematuria Qualified Code(s): N30.00 - Acute cystitis without hematuria Fall Qualifiers: Encounter type: initial encounter Qualified Code(s): W19.XXXA - Unspecified fall, initial encounter Disposition: Admitted As Inpatient Forms: ED Satisfaction Letter Time of Disposition: 17:42 General Adult HPI - General Chief complaint: ED Fall Stated complaint: weakness Time Seen by Provider: 03/15/19 14:22 Source: patient, EMS Mode of arrival: EMS Limitations: no limitations Nursing Notes Reviewed: Yes Vital Signs Reviewed: Yes - History of Present Illness HPI Narrative: 63M with PMHx of asthma, CAD, HTN, DM, and [place] with one stent placed presents to the ED after a fall today in his bathroom. The patient lives at home by himself and has fallen at least 3 times over the past week. He does not remember falling today and does not know if he hit his head. He currently denies any pain anywhere and does not feel confused. He feels generally weak all over. He does not feel safe returning home as he feels like he will keep falling. Pain Scale: 0 - Related Data Home Medications Medication Instructions Recorded Confirmed Benztropine Mesylate 2 mg PO BID 04/16/18 10/25/18 Carbidopa/Levodopa 25/100 [Sinemet 2 tab PO TID 04/16/18 10/25/18 25/100] hydrOXYzine HCl [Hydroxyzine HCl] 25 mg PO QID PRN 04/16/18 10/25/18 traZODone [TraZODone] 50 - 100 mg PO HS 04/16/18 10/25/18 Atorvastatin [Lipitor] 40 mg PO HS 10/25/18 10/25/18 BuPROPion XL (24 HR) [Wellbutrin 150 mg PO 0900,1400 10/25/18 10/25/18 Xl] Quetiapine Fumarate [Seroquel] 200 mg PO HS 10/25/18 10/25/18 Tamsulosin [Flomax] 0.4 mg PO DAILY 10/25/18 10/25/18 metFORMIN [Glucophage] 500 mg PO BIDWM 10/25/18 10/25/18 Previous Rx's Medication Instructions Recorded ARIPiprazole [Abilify] 10 mg PO DAILY #30 tablet 01/09/17 Midodrine [ProAmatine] 5 mg PO 0800,1200,1700 #90 tablet 03/10/19 Allergies Allergy/AdvReac Type Severity Reaction Status Date / Time esomeprazole [From Nexium] Allergy Rash Verified 01/03/17 09:30 Cyclobenzaprine AdvReac Hypotension Verified 01/03/17 09:30 [From Flexeril] All systems ED: reviewed and negative except as stated. Review of Systems: As Per HPI Constitutional: Reports: weakness. Denies: fever Cardiovascular: Reports: dyspnea on exertion. Denies: chest pain Respiratory: Reports: dyspnea. Denies: cough, wheezes Gastrointestinal: Denies: abdominal pain, nausea, vomiting Genitourinary: Denies: dysuria, hematuria Musculoskeletal: Reports: neck pain (chronic). Denies: back pain Integumentary: Denies: rash Neurological: Reports: weakness. Denies: headache, numbness, paresthesias Endocrine: Denies: fatigue Past Medical History - Past Medical History Attestation: Yes The following information was validated with the patient. Source: patient Medical history: Reports: asthma, coronary artery disease, diabetes, hypertension, myocardial infarction, TIA, other Surgical history: Reports: angioplasty/stent, other Psychiatric history: Reports: depression, schizophrenia - Social History Smoking Status: Never smoker Smokeless Tobacco Status: No Alcohol use: Reports: none Drug use: Reports: none Physical Exam - General Limitations: no limitations General appearance: alert, in no apparent distress - Head Head exam: atraumatic, normocephalic - Eye Eye exam: Present: normal appearance, PERRL, EOMI - ENT ENT exam: normal exam - Neck Neck exam: Present: normal inspection. Absent: tenderness, meningismus, lymphadenopathy - Chest Chest inspection: Present: normal inspection. Absent: tenderness - Respiratory Respiratory exam: Present: normal lung sounds bilaterally. Absent: wheezes - Cardiovascular Cardiovascular exam: Present: normal rhythm, tachycardia - Abdominal Exam Abdominal exam: Present: soft, Non-Tender. Absent: distention, guarding, rebound, rigidity (a) - Extremities Exam Extremities exam: Present: normal inspection. Absent: tenderness, pedal edema - Neurological Exam Neurological exam: Present: alert, oriented X3 - Psychiatric Psychiatric exam: Present: normal affect, normal mood - Skin Skin exam: Present: warm, dry, other (skin breakdown visible in groin folds) Course Vital Signs Temperature 98.4 F 03/15/19 14:22 Pulse Rate 103 03/15/19 14:22 Respiratory Rate 18 03/15/19 14:22 Blood Pressure 111/78 03/15/19 14:22 O2 Sat by Pulse Oximetry 98 03/15/19 14:22 Temperature 98.4 F 03/15/19 14:22 Pulse Rate 96 03/15/19 16:48 Respiratory Rate 18 03/15/19 16:48 Blood Pressure 126/92 03/15/19 16:48 O2 Sat by Pulse Oximetry 97 03/15/19 16:48 Oxygen Delivery Oxygen Delivery Room Air Medical Decision Making - MDM Narrative Medical decision making narrative: Patient presents with recurrent falls and generalized weakness. We will obtain basic labs, chest x-ray, EKG, urinalysis, CT scan of the head and neck. 1640 - patient's EKG is unremarkable. Lab work is mostly unremarkable with the exception of an elevated creatinine which appears to be at the patient's baseline and a urinary tract infection. Chest x-ray does not demonstrate any acute cardiopulmonary disease. Head and neck imaging are without acute process. Previous urinalysis has shown signs of MSSA. 1740 - pt has been accepted by the hospitalist for admission. His UTI will be treated with Rocephin. - Medical Records Medical records reviewed: Yes I reviewed the patient's medical records. - Lab Data Lab results reviewed: Yes I reviewed the patient's lab results. Result diagrams: 03/15/19 15:31 03/15/19 15:31 Lab Results 03/15/19 03/15/19 03/15/19 Range/Units 14:50 15:31 15:31 WBC 7.7 (4.3-11.1) K/mcL RBC 4.96 (4.19-5.50) M/mcL Hgb 11.8 L (12.9-16.9) g/dL Hct 36.0 L (37.5-50.1) % MCV 72.6 L (83.0-100.0) fL MCH 23.8 L (28.0-33.3) pg MCHC 32.8 (31.6-35.5) g/dL RDW 16.7 H (11.5-14.5) % Plt Count 378 (140-400) K/mcL MPV 8.2 L (9.4-12.4) fL Immature Gran % 0.3 (0-4) % Seg Neutrophils % 61.8 % Lymphocytes % 20.3 % Monocytes % 13.2 % Eosinophils % 4.1 % Basophils % 0.3 % Neutrophils # 4.8 (1.6-8.9) K/mcL Lymphocytes # 1.6 (0.6-4.6) K/mcL Monocytes # 1.0 (0.0-1.3) K/mcL Eosinophils # 0.3 (0.0-0.6) K/mcL Basophils # 0.0 (0.0-0.2) K/mcL Sodium 132 L (136-145) mEq/L Potassium 4.4 (3.5-5.1) mEq/L Chloride 102 (98-107) mEq/L Carbon Dioxide 21 L (23-29) mEq/L BUN 32 H (8-23) mg/dL Creatinine 2.01 H (0.70-1.30) mg/dL Est GFR ( Amer) 41 L (> 60) Est GFR (Non-Af Amer) 34 L (> 60) BUN/Creatinine Ratio 16 (6-26) Glucose 85 (70-105) mg/dL Calculated Osmolality 280 (280-300) Calcium 9.7 (8.6-10.3) mg/dL Phosphorus 4.0 (2.7-4.5) mg/dL Magnesium 1.9 (1.6-2.6) mg/dL Total Bilirubin 0.6 (0.3-1.0) mg/dL AST 11 L (13-39) Units/L ALT 12 (7-52) Units/L Alkaline Phosphatase 88 (34-104) Units/L Creatine Kinase 65 (30-223) Units/L Troponin I < 0.03 (< 0.04) ng/mL Serum Total Protein 6.5 (6.4-8.9) g/dL Albumin 3.8 (3.5-5.7) g/dL Globulin 2.7 (2.4-3.5) g/dL Albumin/Globulin Ratio 1.4 (1.1-2.2) Urine Color Yellow (Yellow) Urine Clarity Cloudy A (Clear) Urine pH 6.0 (5.0-8.0) pH Units Ur Specific [place] 1.009 L (1.010-1.025) Urine Protein 30 H (Neg-Trace) mg/dL Urine Glucose (UA) Normal (Normal) mg/dL Urine Ketones Negative (Negative) mg/dL Urine Blood Moderate H (Negative) Urine Nitrite Negative (Negative) Urine Bilirubin Negative (Negative) Urine Urobilinogen Normal (Normal) mg/dL Ur Leukocyte Esterase Small H (Negative) Urine Microscopic RBC 5-15 H (0-3) per hpf Urine Microscopic WBC 15-30 H (0-3) per hpf Ur Squamous Epith Cells Many H (None-Few) per lpf Urine Bacteria None Seen (None-Few) per hpf Hyaline Casts None Seen (None-Few) per lpf Ur Culture Indicated? YES A (NO) - Radiology Data Radiology results reviewed: Yes I reviewed the patient's radiology results. - EKG Data EKG #1 EKG attestation: Yes I reviewed and interpreted this EKG. EKG results narrative: EKG obtained at 14:46 on 03/15/2019 Heart rate 100 bpm, NE interval 94, QRS duration 86, QT 338, QTC 436 Sinus tachycardia with no acute ST segment elevations or depressions. Early R- wave progression. No other acute abnormalities. No significant changes when compared to previous EKG dated 03/09/2019.
[2019-03-15 15:03] LABS: Bilirubin,Urine Negative (Negative); Blood,Urine Moderate (Negative); Clarity,Urine Cloudy (Clear); Color,Urine Yellow (Yellow); Glucose,Urine (UA) Normal (Normal); Ketones,Urine Negative (Negative); Leukocyte Esterase,Urine Small (Negative); Nitrite,Urine Negative (Negative); Protein,Urine 30 mg/dL (Neg-Trace); Specific Gravity,Urine 1.009 (1.010-1.025); Urobilinogen,Urine Normal (Normal)
[2019-03-15 15:05] LABS: Bacteria,Urine None Seen per hpf (None-Few); Hyaline Casts,Urine None Seen per lpf (None-Few); Squamous Epithelial Cell,Urine Many per lpf (None-Few); WBC,Urine 15-30 per hpf (0-3)
[2019-03-15 16:08] LABS: Basophils % 0.3 %; Eosinophils # 0.3 K/mcL (0.0-0.6); Eosinophils % 4.1 %; Hemoglobin 11.8 g/dL (12.9-16.9); Immature Granulocytes % 0.3 % (0-4); Lymphocytes # 1.6 K/mcL (0.6-4.6); Lymphocytes % 20.3 %; Mean Corpuscular HGB Conc 32.8 g/dL (31.6-35.5); Mean Corpuscular Hemoglobin 23.8 pg (28.0-33.3); Mean Corpuscular Volume 72.6 fL (83.0-100.0); Mean Platelet Volume 8.2 fL (9.4-12.4); Monocytes % 13.2 %; Neutrophils # 4.8 K/mcL (1.6-8.9); Platelet Count 378 K/mcL (140-400); Red Blood Count 4.96 M/mcL (4.19-5.50); Red Cell Distribution Width 16.7 % (11.5-14.5); Segmented Neutrophils % 61.8 %; White Blood Count 7.7 K/mcL (4.3-11.1)
[2019-03-15 16:29] LABS: BUN/Creatinine Ratio 16 (6-26); Blood Urea Nitrogen 32 mg/dL (8-23); Carbon Dioxide 21 mEq/L (23-29); Chloride 102 mEq/L (98-107); Glucose 85 mg/dL (70-105); Potassium 4.4 mEq/L (3.5-5.1); Sodium 132 mEq/L (136-145); eGFR For African Americans 41 (> 60); eGFR For Non-African Americans 34 (> 60)
[2019-03-15 16:30] LABS: Alanine Aminotransferase 12 Units/L (7-52); Albumin 3.8 g/dL (3.5-5.7); Albumin/Globulin Ratio 1.4 (1.1-2.2); Alkaline Phosphatase 88 Units/L (34-104); Aspartate Amino Transferase 11 Units/L (13-39); Bilirubin,Total 0.6 mg/dL (0.3-1.0); Calcium 9.7 mg/dL (8.6-10.3); Creatine Kinase 65 Units/L (30-223); Globulin 2.7 g/dL (2.4-3.5); Magnesium 1.9 mg/dL (1.6-2.6); Osmolality,Calculated 280 (280-300); Total Protein 6.5 g/dL (6.4-8.9); Troponin I < 0.03 ng/mL (< 0.04)
[2019-03-15] MEDS ORDERED: cefTRIAXone 1,000 MG in 0.9 % Sodium Chloride Mini Bag 100 ML IVPB ONE (17:12)
[2019-03-15] MEDS ORDERED: 0.9 % Sodium Chloride 1,000 ML IVC ONE (17:12)
[2019-03-15] MEDS ORDERED: cefTRIAXone 1,000 MG in Water for inj. (sterile) 10 ML IVPB ONE (17:30)
[2019-03-15] MEDS ORDERED: Naloxone 0.4 MG/ML INJ IVP PRN (17:42)
[2019-03-15] MEDS ORDERED: *HR* Promethazine 25 MG/ML VIAL IVP PRN (17:42)
[2019-03-15] MEDS ORDERED: Ondansetron ODT 4 MG TAB.RAPDIS SL PRN (17:42)
--- NOTE | 2019-03-15 18:09 | Emergency Department Note ---
Disposition Clinical Impression: Weakness UTI (urinary tract infection) Qualifiers: Urinary tract infection type: acute cystitis Hematuria presence: without hematuria Qualified Code(s): N30.00 - Acute cystitis without hematuria Fall Qualifiers: Encounter type: initial encounter Qualified Code(s): W19.XXXA - Unspecified fall, initial encounter Disposition: Admitted As Inpatient Condition: Good Time of Disposition: 17:42 General Adult HPI - General Chief complaint: ED Fall Stated complaint: weakness Time Seen by Provider: 03/15/19 14:22 Source: patient, EMS Mode of arrival: EMS Limitations: no limitations - History of Present Illness Pain Scale: 0 - Related Data Home Medications Medication Instructions Recorded Confirmed Benztropine Mesylate 2 mg PO BID 04/16/18 10/25/18 Carbidopa/Levodopa 25/100 [Sinemet 2 tab PO TID 04/16/18 10/25/18 25/] hydrOXYzine HCl [Hydroxyzine HCl] 25 mg PO QID PRN 04/16/18 10/25/18 traZODone [TraZODone] 50 - 100 mg PO HS 04/16/18 10/25/18 Atorvastatin [Lipitor] 40 mg PO HS 10/25/18 10/25/18 BuPROPion XL (24 HR) [Wellbutrin 150 mg PO 0900,1400 10/25/18 10/25/18 Xl] Quetiapine Fumarate [Seroquel] 200 mg PO HS 10/25/18 10/25/18 Tamsulosin [Flomax] 0.4 mg PO DAILY 10/25/18 10/25/18 metFORMIN [Glucophage] 500 mg PO BIDWM 10/25/18 10/25/18 Previous Rx's Medication Instructions Recorded ARIPiprazole [Abilify] 10 mg PO DAILY #30 tablet 01/09/17 Midodrine [ProAmatine] 5 mg PO 0800,1200,1700 #90 tablet 03/10/19 Allergies Allergy/AdvReac Type Severity Reaction Status Date / Time esomeprazole [From Nexium] Allergy Rash Verified 01/03/17 09:30 Cyclobenzaprine AdvReac Hypotension Verified 01/03/17 09:30 [From Flexeril] Constitutional: Reports: weakness. Denies: fever Cardiovascular: Reports: dyspnea on exertion. Denies: chest pain Respiratory: Reports: dyspnea. Denies: cough, wheezes Gastrointestinal: Denies: abdominal pain, nausea, vomiting Genitourinary: Denies: dysuria, hematuria Musculoskeletal: Reports: neck pain (chronic). Denies: back pain Integumentary: Denies: rash Neurological: Reports: weakness. Denies: headache, numbness, paresthesias Endocrine: Denies: fatigue Past Medical History - Past Medical History Medical history: Reports: asthma, coronary artery disease, diabetes, hypertension, myocardial infarction, TIA, other Surgical history: Reports: angioplasty/stent, other Psychiatric history: Reports: depression, schizophrenia - Social History Smoking Status: Never smoker Smokeless Tobacco Status: No Alcohol use: Reports: none Drug use: Reports: none Physical Exam - General Limitations: no limitations General appearance: alert, in no apparent distress Course Vital Signs Temperature 98.4 F 03/15/19 14:22 Pulse Rate 103 03/15/19 14:22 Respiratory Rate 18 03/15/19 14:22 Blood Pressure 111/78 03/15/19 14:22 O2 Sat by Pulse Oximetry 98 03/15/19 14:22 Temperature 98.0 F 03/16/19 19:18 Pulse Rate 87 03/16/19 19:18 Respiratory Rate 16 03/16/19 19:18 Blood Pressure 122/81 03/16/19 19:18 O2 Sat by Pulse Oximetry 100 03/16/19 19:18 Oxygen Delivery Oxygen Delivery Room Air Medical Decision Making - Lab Data Result diagrams: 03/16/19 04:02 03/16/19 04:02 Lab Results 03/15/19 03/15/19 03/15/19 Range/Units 14:50 15:31 15:31 WBC 7.7 (4.3-11.1) K/mcL RBC 4.96 (4.19-5.50) M/mcL Hgb 11.8 L (12.9-16.9) g/dL Hct 36.0 L (37.5-50.1) % MCV 72.6 L (83.0-100.0) fL MCH 23.8 L (28.0-33.3) pg MCHC 32.8 (31.6-35.5) g/dL RDW 16.7 H (11.5-14.5) % Plt Count 378 (140-400) K/mcL MPV 8.2 L (9.4-12.4) fL Immature Gran % 0.3 (0-4) % Seg Neutrophils % 61.8 % Lymphocytes % 20.3 % Monocytes % 13.2 % Eosinophils % 4.1 % Basophils % 0.3 % Neutrophils # 4.8 (1.6-8.9) K/mcL Lymphocytes # 1.6 (0.6-4.6) K/mcL Monocytes # 1.0 (0.0-1.3) K/mcL Eosinophils # 0.3 (0.0-0.6) K/mcL Basophils # 0.0 (0.0-0.2) K/mcL Sodium 132 L (136-145) mEq/L Potassium 4.4 (3.5-5.1) mEq/L Chloride 102 (98-107) mEq/L Carbon Dioxide 21 L (23-29) mEq/L BUN 32 H (8-23) mg/dL Creatinine 2.01 H (0.70-1.30) mg/dL Est GFR ( Amer) 41 L (> 60) Est GFR (Non-Af Amer) 34 L (> 60) BUN/Creatinine Ratio 16 (6-26) Glucose 85 (70-105) mg/dL Calculated Osmolality 280 (280-300) Calcium 9.7 (8.6-10.3) mg/dL Phosphorus 4.0 (2.7-4.5) mg/dL Magnesium 1.9 (1.6-2.6) mg/dL Total Bilirubin 0.6 (0.3-1.0) mg/dL AST 11 L (13-39) Units/L ALT 12 (7-52) Units/L Alkaline Phosphatase 88 (34-104) Units/L Creatine Kinase 65 (30-223) Units/L Troponin I < 0.03 (< 0.04) ng/mL Serum Total Protein 6.5 (6.4-8.9) g/dL Albumin 3.8 (3.5-5.7) g/dL Globulin 2.7 (2.4-3.5) g/dL Albumin/Globulin Ratio 1.4 (1.1-2.2) Urine Color Yellow (Yellow) Urine Clarity Cloudy A (Clear) Urine pH 6.0 (5.0-8.0) pH Units Ur Specific [place] 1.009 L (1.010-1.025) Urine Protein 30 H (Neg-Trace) mg/dL Urine Glucose (UA) Normal (Normal) mg/dL Urine Ketones Negative (Negative) mg/dL Urine Blood Moderate H (Negative) Urine Nitrite Negative (Negative) Urine Bilirubin Negative (Negative) Urine Urobilinogen Normal (Normal) mg/dL Ur Leukocyte Esterase Small H (Negative) Urine Microscopic RBC 5-15 H (0-3) per hpf Urine Microscopic WBC 15-30 H (0-3) per hpf Ur Squamous Epith Cells Many H (None-Few) per lpf Urine Bacteria None Seen (None-Few) per hpf Hyaline Casts None Seen (None-Few) per lpf Ur Culture Indicated? YES A (NO) Attestation Statement - Attestation Attestation: I examined this patient and my medical decision-making was reviewed with the Resident Physician. I agree with the documented findings, disposition and treatment plan as described except to the extent set forth below. Patient 63-year-old [place] presents to the emergency department with chief complaint of generalized weakness and fall. Patient states he lives at home by himself sounds are patient states that he does not remember whenever he: And states is not sure. Patient states is not hurting anywhere states that he stilldoes not feel safe at home Patient is awake alert and in no acute distress Medical decision management the patient underwent laboratory study testing given the vague patient is currently weak and is unable to care for himself at home in case was discussed with the hospitalist the patient will be admitted to the hospital for observation for generalized weakness and possible further evaluation with potential placement.
--- NOTE | 2019-03-15 18:54 | Internal Med History&Physical ---
Date of Encounter: 03/15/19 Time of Encounter: 18:44 Internal Medicine - H&P: HPI Chief complaint: Ground Level Fall Admitted From: Home Plans for Post Hospital Care: Transfer [facility] History of present illness: Mr. Walters is a 63 year old male with history of Parkinson's disease and frequent falls presents after a ground-level fall at home. Patient was recently admitted one week prior to admission for similar presentation. Was found to be orthostatic so started on Midrin, which she has been taking. PT recommended rehabilitation however patient declined and requested home health. Patient says he has been doing poorly since discharge, however, does not really remember hospital stay. Says he has been having trouble with his memory lately. This evening, was in the shower when he sustained a fall. Does not remember much of the fall but does not remember hitting his head. No trauma that he knows of. Does not know if he has lightheadedness or dizziness before the fall, however, does note that he is had these symptoms before previous falls. Past notes say that patient was discharged with home health, however, patient says that he has not been receiving any services. Walks with a cane at home and says his gait is unsteady. Lives alone and does not have any help at home. In the ED, VSS. WBC 7.7. Creatinine at his baseline of 2. UDS negative. UA with some concerns for infection and patient started on ceftriaxone. Imaging of head, neck, and chest without acute pathology. Admitted to medicine. Past Med Surg Social Fam HX - Past Medical History Medical history: asthma, coronary artery disease, diabetes, hypertension, myocardial infarction, TIA, other Additional medical history: Parkinson's Psychiatric history: depression, schizophrenia - Past Surgical History Surgical History: angioplasty/stent, other Additional surgical history: Carpal tunnel. 1 cardiac stent - Social History Smoking Status: Never smoker Smokeless Tobacco Status: No Alcohol use: none Drug use: none - Family History Mother Adopted: No Family Member Ethnicity: Non- Living Status: Hx Family Cardiac Disorders: No Hx Family Respiratory Disorders: No Hx Family Cancer: No Hx Family GI Disorders: No Hx Family Endocrine Disorder: No Hx Family Neuromuscular Disorders: No Hx Family Neurologic Disorders: No Hx Family HEENT Disorders: No Hx Family Autoimmune Disorders: No Father Family Member Ethnicity: Non- Living Status: Hx Family Cardiac Disorders: Yes Hx Family Respiratory Disorders: Yes Hx Family Cancer: No Hx Family GI Disorders: No Hx Family Endocrine Disorder: No Hx Family Neuromuscular Disorders: No Hx Family Neurologic Disorders: No Hx Family HEENT Disorders: No Hx Family Autoimmune Disorders: No Internal Medicine - H&P: Meds ARIPiprazole [Abilify] 10 mg PO DAILY #30 tablet 01/09/17 [Rx] Benztropine Mesylate 2 mg PO BID 04/16/18 [History] Carbidopa/Levodopa 25/100 [Sinemet 25/100] 2 tab PO TID 04/16/18 [History] hydrOXYzine HCl [Hydroxyzine HCl] 25 mg PO QID PRN 04/16/18 [History] traZODone [TraZODone] 50 - 100 mg PO HS 04/16/18 [History] Atorvastatin [Lipitor] 40 mg PO HS 10/25/18 [History] BuPROPion XL (24 HR) [Wellbutrin Xl] 150 mg PO 0900,1400 10/25/18 [History] Quetiapine Fumarate [Seroquel] 200 mg PO HS 10/25/18 [History] Tamsulosin [Flomax] 0.4 mg PO DAILY 10/25/18 [History] metFORMIN [Glucophage] 500 mg PO BIDWM 10/25/18 [History] Midodrine [ProAmatine] 5 mg PO 0800,1200,1700 #90 tablet 03/10/19 [Rx] Allergy/AdvReac Type Severity Reaction Status Date / Time esomeprazole [From Nexium] Allergy Rash Verified 01/03/17 09:30 Cyclobenzaprine AdvReac Hypotension Verified 01/03/17 09:30 [From Flexeril] All Systems PM: A 10-system review of systems was performed and is negative for pertinent findings except as documented above in the HPI. Review of systems: General: Fevers / Chills / Weight loss / Night sweats Eyes: Blurry Vision / Change in Vision HENT: Ear Pain / Ear Drainage / Rhinorrhea / Throat Pain / Lymphadenopathy Cardiovascular: Chest Pain / Palpatations / Orthopnea / KIM / Weight gain Lungs: Dyspnea / Wheezing / Cough / Sputum production / Pleurisy Abdomen: Abdomen pain / Abdominal distention / Nausea / Vomiting / Diarrhea / Const : Dysuria / Urinary Frequency / Urinary Urgency / Hematuria Extremities: LE edema / Ext pain / Ext erythema Skin: Rashes / Abrasions / Contusions Psych: Hallucinations / Anxiety / Depression Neuro: Weakness / Numbness / Tingling / Facial Droop / Dysphagia / Falls - Constitutional Vitals: Temp Pulse Resp BP Pulse Ox 98.4 F 91 17 127/79 96 03/15/19 14:22 03/15/19 17:45 03/15/19 17:45 03/15/19 17:45 03/15/19 17:45 Exam: General: Ill-appearing and in no acute distress HEENT: No erythema of posterior pharynx. No exudates. Lymphatics: No mandibular or cervical lymphadenopathy Cardiovascular: RRR. No murmurs. No chest wall tenderness. Lungs: Clear to auscelltation bilaterally. Regular chest rise. Abdomen: Non-tender. No rebound or gaurding. Nl bowel sounds. Extremities: No edema. 2+ pulses radial and pedal pulses Skin: No rahses, abrasions, or contusions. Nl cap refill. Psych: Nl attention. A&Ox3 but short-term memory poor (does not recall previous hospital stay or recent fall that brought him in) Neuro: R-handed tremor and cogwheel rigidity noted. systems auditor II-XII intact. 5/5 strength. Sensation to light touch and pinprick intact. PD negative. Internal Med - H&P Results - Labs CBC & Chem 7: 03/15/19 15:31 03/15/19 15:31 Labs: Short CBC 03/15/19 Range/Units 15:31 WBC 7.7 (4.3-11.1) K/mcL Hgb 11.8 L (12.9-16.9) g/dL Hct 36.0 L (37.5-50.1) % Plt Count 378 (140-400) K/mcL Neutrophils # 4.8 (1.6-8.9) K/mcL BMP 03/15/19 15:31 Sodium 132 L Potassium 4.4 Chloride 102 Carbon Dioxide 21 L BUN 32 H Creatinine 2.01 H Glucose 85 Calcium 9.7 Cardiac Enzymes 03/15/19 Range/Units 15:31 Troponin I < 0.03 (< 0.04) ng/mL Liver Function 03/15/19 Range/Units 15:31 Total Bilirubin 0.6 (0.3-1.0) mg/dL AST 11 L (13-39) Units/L ALT 12 (7-52) Units/L Alkaline Phosphatase 88 (34-104) Units/L Albumin 3.8 (3.5-5.7) g/dL Urine 03/15/19 Range/Units 14:50 Urine Color Yellow (Yellow) Urine Clarity Cloudy A (Clear) Urine pH 6.0 (5.0-8.0) pH Units Ur Specific [place] 1.009 L (1.010-1.025) Urine Protein 30 H (Neg-Trace) mg/dL Urine Glucose (UA) Normal (Normal) mg/dL - Impressions ITS Impressions Cervical Spine CT 03/15/19 14:37 IMPRESSION: No acute intracranial abnormality. Suboptimal positioning for CT with head canted leftward. Degenerative changes involving the cervical spine described above. No cervical fracture or acute traumatic subluxation. Note that if pain persists or worsens, or if clinically there is concern for CT occult acute cervical abnormality, flexion/extension C-spine series or MRI cervical spine may be considered for additional evaluation. D/ / Paulo Page / Paulo Page Interpreting Provider: Paulo Page Chest X-Ray 03/15/19 14:37 IMPRESSION: No active cardiopulmonary disease D/ / Iron Negron MD / Iron Negron MD Interpreting Provider: Iron eNgron MD Head CT 03/15/19 14:37 IMPRESSION: No acute intracranial abnormality. Suboptimal positioning for CT with head canted leftward. Degenerative changes involving the cervical spine described above. No cervical fracture or acute traumatic subluxation. Note that if pain persists or worsens, or if clinically there is concern for CT occult acute cervical abnormality, flexion/extension C-spine series or MRI cervical spine may be considered for additional evaluation. D/ / Paulo Page / Paulo Page Interpreting Provider: Paulo Page - Assessment and Plan (1) Fall from ground level Current Visit: Yes Status: Acute Assessment and plan: Patient with history of Parkinson's disease complicated by orthostatic hypoten giovana on Midodrine and recurrent falls presents with ground level fall in the setting of stable vitals, unremarkable physical exam without any acute neuro deficits, and unremarkable labs and imaging. -Patient with multiple risk factors for falls: History of Parkinson's disease: Unsteady gait because of his and walks with a cane Probable autonomic dysreflexia causing orthostasis - recently started on midodrine History of recent hospital stay and likely deconditioned from this History of stroke in past per patient. Low concern for acute stroke this admission given no acute changes in physical exam -Low concern for syncopal episode but will monitor on telemetry -UA dirty but always dirty. Low concern for infection at this point so will not continue ABs but f/u cx PLAN: - Orthostatic blood pressures - if still positive would rec increasing midodrine or adding fludrocortisone - PT eval - patient amenable to SNF placement now. Patient should probably have higher level care thereafter - Telemetry monitoring - F/u urine cx (2) Orthostatic hypotension Current Visit: Yes Status: Acute Assessment and plan: See above (3) Parkinson disease Current Visit: No Status: Chronic Assessment and plan: See discussion above. - Continue home medications (4) CKD (chronic kidney disease) stage 3, GFR 30-59 ml/min Current Visit: Yes Status: Acute Assessment and plan: At baseline (5) Type 2 diabetes mellitus Current Visit: No Status: Chronic Assessment and plan: On orals outpatient. - LDSS Qualifiers: Diabetes mellitus director long term care insulin use: without director long term care use Diabetes mellitus complication status: without complication Qualified Code(s): E11.9 - Type 2 diabetes mellitus without complications (6) Bladder cancer Current Visit: No Status: Ruled-out Assessment and plan: History of bladder cancer and patient has had hematuria during recent hospitalizations. Believe patient has probable BPH and/or neurogenic bladder from Parkinson's disease as well. - Bladder scan - Continue home Flomax - Consider urology consultation Qualifiers: Bladder location: unspecified site Qualified Code(s): C67.9 - Malignant neoplasm of bladder, unspecified - Time Spent With Patient Total time spent is greater than 50% in coordination of care (as documented) at patient's floor/unit and/or counseling patient:
[2019-03-15] MEDS ORDERED: D5% in Water 1,000 ML IVC PRN (19:16)
[2019-03-15] MEDS ORDERED: Dextrose Gel 15 GM/37.5 ML TUBE PO PRN ×2 (19:16)
[2019-03-15] MEDS ORDERED: *HR* Dextrose 50 % in Water (Syg) 50 ML SYRINGE IVP PRN (19:16)
[2019-03-15] MEDS: Carbidopa/Levodopa 25/100 TABLET PO SCH (20:36)
[2019-03-16] MEDS: Nystatin POWDER 30 GM BOTTLE TP SCH ×3 (01:29→20:09)
[2019-03-16] MEDS: Acetaminophen 325 MG TABLET PO PRN ×2 (03:16→08:43)
[2019-03-16] MEDS: *HR* Enoxaparin 40 MG/0.4 ML SYRINGE SQ SCH (05:25)
[2019-03-16 05:34] LABS: Basophils # 0.1 K/mcL (0.0-0.2); Basophils % 0.5 %; Eosinophils # 0.4 K/mcL (0.0-0.6); Eosinophils % 3.9 %; Hematocrit 41.7 % (37.5-50.1); Hemoglobin 13.2 g/dL (12.9-16.9); Immature Granulocytes % 0.5 % (0-4); Lymphocytes # 1.1 K/mcL (0.6-4.6); Lymphocytes % 11.8 %; Mean Corpuscular HGB Conc 31.7 g/dL (31.6-35.5); Mean Corpuscular Hemoglobin 23.4 pg (28.0-33.3); Mean Corpuscular Volume 73.8 fL (83.0-100.0); Mean Platelet Volume 8.4 fL (9.4-12.4); Monocytes # 0.9 K/mcL (0.0-1.3); Neutrophils # 6.8 K/mcL (1.6-8.9); Platelet Count 438 K/mcL (140-400); Red Blood Count 5.65 M/mcL (4.19-5.50); Red Cell Distribution Width 17.5 % (11.5-14.5); Segmented Neutrophils % 73.3 %; White Blood Count 9.3 K/mcL (4.3-11.1)
[2019-03-16 05:51] LABS: Potassium 4.4 mEq/L (3.5-5.1)
[2019-03-16] MEDS: Insulin LISPRO 300 UNITS/3 ML VIAL SQ SCH ×3 (08:30→17:57)
[2019-03-16] MEDS: BuPROPion XL (24 HR) 150 MG TABLET PO SCH ×2 (08:38→15:07)
[2019-03-16] MEDS: ARIPiprazole 10 MG TABLET PO SCH (08:38)
[2019-03-16] MEDS: Carbidopa/Levodopa 25/100 TABLET PO SCH ×3 (08:38→20:09)
[2019-03-16] MEDS ORDERED: cefTRIAXone 2,000 MG in Water for inj. (sterile) 20 ML IVP SCH (17:00)
[2019-03-16] MEDS: cefTRIAXone 1,000 MG in Water for inj. (sterile) 10 ML IVP SCH (18:00)
--- NOTE | 2019-03-16 18:59 | Internal Med Progress Note ---
Hospitalist Progress Note - Encounter Date of Encounter: 03/16/19 Time of Encounter: 18:55 - Subjective Interval History: Patient with evidence of urinary tract infection. Will get bladder scans. May need treatment for neurogenic bladder. Patient refusing rehabilitation placement as recommended by PT. - Exam Vitals: Temp Pulse Resp BP Pulse Ox 97.4 F L 91 16 128/86 97 03/16/19 16:18 03/16/19 16:18 03/16/19 16:18 03/16/19 16:18 03/16/19 16:18 Exam: General: Ill-appearing and in no acute distress HEENT: No erythema of posterior pharynx. No exudates. Lymphatics: No mandibular or cervical lymphadenopathy Cardiovascular: RRR. No murmurs. No chest wall tenderness. Lungs: Clear to auscelltation bilaterally. Regular chest rise. Abdomen: Non-tender. No rebound or gaurding. Nl bowel sounds. Extremities: No edema. 2+ pulses radial and pedal pulses Skin: No rahses, abrasions, or contusions. Nl cap refill. Psych: Nl attention. A&Ox3 but short-term memory poor (does not recall previous hospital stay or recent fall that brought him in) Neuro: R-handed tremor and cogwheel rigidity noted. grain grader II-XII intact. 5/5 strength. Sensation to light touch and pinprick intact. PD negative. - Assessment and Plan (1) Fall from ground level Current Visit: Yes Status: Acute Assessment and Plan: Patient with history of Parkinson's disease complicated by orthostatic hypo tension on Midodrine and recurrent falls presents with ground level fall in the setting of stable vitals, unremarkable physical exam without any acute neuro deficits, and unremarkable labs and imaging. -Patient with multiple risk factors for falls: History of Parkinson's disease: Unsteady gait because of his and walks with a cane Probable autonomic dysreflexia causing orthostasis - recently started on midodrine History of recent hospital stay and likely deconditioned from this PT rec SNF but patient refusing History of stroke in past per patient. Low concern for acute stroke this admission given no acute changes in physical exam -Low concern for syncopal episode but will monitor on telemetry -UA dirty but always dirty - still with bacturia. Will start on ABs and consider tx for neurogenic bladder PLAN: - Orthostatic blood pressures - will follow-up with nursing and ensure this is getting done - Will discuss SNF further with patient. If still refusing may consider cog eval to determine if he is able to make his own decisions - Ceftriaxone - Telemetry monitoring (2) Orthostatic hypotension Current Visit: Yes Status: Acute Assessment and Plan: See above (3) Parkinson disease Current Visit: No Status: Chronic Assessment and Plan: See discussion above. - Continue home medications (4) CKD (chronic kidney disease) stage 3, GFR 30-59 ml/min Current Visit: Yes Status: Acute Assessment and Plan: At baseline (5) Type 2 diabetes mellitus Current Visit: No Status: Chronic Assessment and Plan: On orals outpatient. - LDSS (6) Bladder cancer Current Visit: No Status: Ruled-out Assessment and Plan: History of bladder cancer and patient has had hematuria during recent hospitalizations. Believe patient has probable BPH and/or neurogenic bladder from Parkinson's disease as well. - Bladder scan - Continue home Flomax - Consider urology consultation (7) Acute cystitis with hematuria Current Visit: Yes Status: Acute Assessment and Plan: See above - Time Spent with Patient Total time spent is greater than 50% in coordination of care (as documented) at patient's floor/unit and/or counseling patient: Internal Medicine: Result - Labs CBC & Chem 7: 03/16/19 04:02 03/16/19 04:02 Labs: Short CBC 03/16/19 Range/Units 04:02 WBC 9.3 (4.3-11.1) K/mcL Hgb 13.2 (12.9-16.9) g/dL Hct 41.7 (37.5-50.1) % Plt Count 438 H (140-400) K/mcL Neutrophils # 6.8 (1.6-8.9) K/mcL BMP 03/16/19 04:02 Sodium 140 Potassium 4.4 Chloride 105 Carbon Dioxide 21 L BUN 30 H Creatinine 1.99 H Glucose 98 Calcium 10.0 Consult Discharge Plan - Plan Referrals: Elisha Gonzales [Primary Care Provider] - (5) Type 2 diabetes mellitus Qualifiers: Diabetes mellitus jail insulin use: without jail use Diabetes mellitus complication status: without complication Qualified Code(s): E11.9 - Type 2 diabetes mellitus without complications (6) Bladder cancer Qualifiers: Bladder location: unspecified site Qualified Code(s): C67.9 - Malignant neoplasm of bladder, unspecified
[2019-03-17] MEDS: *HR* Enoxaparin 40 MG/0.4 ML SYRINGE SQ SCH (05:36)
--- NOTE | 2019-03-17 06:47 | Event Note ---
Date of Encounter: 03/17/19 Time of Encounter: 06:30 Alerted by pts. nurse CHERIE Lara that the patient was actively hallucinating overnight, reporting the presence of a woman in the room several times who was not there. Patient also reported he was talking to people and then they were not there. Patient has a hx of schizophrenia. I called and confirmed a 1A consult for the patient d/t his active hallucinations. Psychiatrist will see the pt. today. Nurse instructed to continue monitoring the pt. closely and alert myself or Dr. Silva of any adverse changes.
[2019-03-17] MEDS: Carbidopa/Levodopa 25/100 TABLET PO SCH ×2 (08:22→16:21)
[2019-03-17] MEDS: BuPROPion XL (24 HR) 150 MG TABLET PO SCH ×2 (08:22→13:49)
[2019-03-17] MEDS: cefTRIAXone 1,000 MG in Water for inj. (sterile) 10 ML IVP SCH (08:22)
[2019-03-17] MEDS: ARIPiprazole 10 MG TABLET PO SCH (08:22)
[2019-03-17] MEDS: Insulin LISPRO 300 UNITS/3 ML VIAL SQ SCH ×3 (08:23→16:21)
[2019-03-17] MEDS: Nystatin POWDER 30 GM BOTTLE TP SCH (08:29)
--- NOTE | 2019-03-17 11:07 | Consult Note ---
Date of Encounter: 03/17/19 Time of Encounter: 12:45 Assessment & Recommendation (1) Hallucinations Current visit: Yes Status: Resolved Assessment & Recommendation: -patient was found to have one episode of hallucination that happened on 03/17/19. Is likely multifactorial due to UTI, history of paranoid schizophrenia and depression -She is currently on day 3 of Rocephin 1000mg. - continue to administer home meds to the patient while in-house -Continue to monitor History of Present Illness Requesting Physician: Eduard Silva History of present illness: Mr. Walters is a 63 year old male with a past medical history of paranoid schizophrenia diagnosed in 2003, depression, Parkinson's disease who presented to the ED because of fall this bathroom. Patient lives at home by himself and has fallen at least 3 times in the past week. Psychiatry was consulted because patient was found to be having visual hallucinations overnight on 03/17/19. Acc ording to the report, patient was reported seeing a woman in the room several times who was not there. Patient was also reported talking to people. He just had one of these episodes . In the ER, patient's UA showed some concern for infection and patient was put on ceftriaxone. Psychiatry was consulted for management of patient's hallucination. CC: Eduard Silva Past Med Surg Social Fam HX - Past Medical History Medical history: asthma, coronary artery disease, diabetes, hypertension, myocardial infarction, TIA, other - Past Surgical History Surgical History: angioplasty/stent, other - Social History Smoking Status: Never smoker Smokeless Tobacco Status: No Alcohol use: none Drug use: none - Family History Mother Adopted: No Family Member Ethnicity: Non- Living Status: Hx Family Cardiac Disorders: No Hx Family Respiratory Disorders: No Hx Family Cancer: No Hx Family GI Disorders: No Hx Family Endocrine Disorder: No Hx Family Neuromuscular Disorders: No Hx Family Neurologic Disorders: No Hx Family HEENT Disorders: No Hx Family Autoimmune Disorders: No Father Family Member Ethnicity: Non- Living Status: Hx Family Cardiac Disorders: Yes Hx Family Respiratory Disorders: Yes Hx Family Cancer: No Hx Family GI Disorders: No Hx Family Endocrine Disorder: No Hx Family Neuromuscular Disorders: No Hx Family Neurologic Disorders: No Hx Family HEENT Disorders: No Hx Family Autoimmune Disorders: No Medications & Allergies ARIPiprazole [Abilify] 10 mg PO DAILY #30 tablet 01/09/17 [Rx] Benztropine Mesylate 2 mg PO BID 04/16/18 [History] Atorvastatin [Lipitor] 40 mg PO HS 10/25/18 [History] BuPROPion XL (24 HR) [Wellbutrin Xl] 150 mg PO 0900,1400 10/25/18 [History] Quetiapine Fumarate [Seroquel] 200 mg PO HS 10/25/18 [History] Tamsulosin [Flomax] 0.4 mg PO DAILY 10/25/18 [History] metFORMIN [Glucophage] 500 mg PO BIDWM 10/25/18 [History] Midodrine [ProAmatine] 5 mg PO 0800,1200,1700 #90 tablet 03/10/19 [Rx] Albuterol Sulfate [Ventolin Hfa] 2 puff IH Q4H PRN 03/16/19 [History] Gabapentin [Neurontin] 300 mg PO DAILY 03/16/19 [History] Finasteride [Proscar] 5 mg PO DAILY #30 tablet 03/17/19 [Rx] cephALEXin [Keflex] 500 mg PO BID #10 capsule 03/17/19 [Rx] Allergy/AdvReac Type Severity Reaction Status Date / Time esomeprazole [From Nexium] Allergy Rash Verified 01/03/17 09:30 Cyclobenzaprine AdvReac Hypotension Verified 01/03/17 09:30 [From Flexeril] Review of Systems Constitutional: Denies: fever, chills, weakness, weight change Eyes: Denies: eye pain, vision change Ears, Nose, Throat: Denies: ear pain, throat pain, dental pain, hearing loss, congestion Cardiovascular: Denies: chest pain, palpitations, dyspnea on exertion Respiratory: Denies: cough, dyspnea, wheezes Gastrointestinal: Denies: abdominal pain, nausea, vomiting, diarrhea, constipation Genitourinary male: Denies: urgency, dysuria, frequency, genital lesions Musculoskeletal: Denies: joint swelling, joint pain Integumentary: Denies: rash, lesions, pruritus Neurological: Denies: headache, weakness, numbness, memory loss Endocrine: Denies: fatigue, heat or cold intolerance Hematologic/Lymphatic: Denies: easy bruising, lymphadenopathy Allergic/Immunologic: Denies: urticaria, itchy eyes Psychiatry Exam - Constitutional Vitals: Temp Pulse Resp BP Pulse Ox 97.6 F 100 16 118/79 99 03/17/19 07:36 03/17/19 07:36 03/17/19 07:36 03/17/19 07:36 03/17/19 07:36 Additional observations: Gen.: Vitals noted. No acute distress. Alert, awake and oriented * [address], and time, well developed, well-nourished resting comfortably in bed. Pleasant. HEENT: oropharynx clear, Normocephalic, atraumatic, MMM Neck: supple, no JVD, no lymphadenopathy, no carotid bruit. Cardiac: RRR, no murmur, +S1/S2, No BLE edema, PMI non-displaced Pulmonary: CTA bilaterally, no wheezes, rales or rhonchi, equal chest expansion, unlabored breathing Abdomen: soft, nontender, BS noted, no guarding, undistended. No organomegaly, no pulsatile masses, Back: Bilateral flank tenderness, suprapubic pain Skin: warm and dry, no visible lesions. Feels warm, clammy, no rashes, no lesions, no erythema MSK: ROM not assessed. no joint swelling noted, gait not assessed while in bed. Non tender calf or clubbing, no cyanosis/clubbing/ or edema Neuro: A&O, R hand tremor and cogwheel rigidity noted. Psych: Appropriate mood and behavior, normal speech. Results - Labs Labs: Laboratory Last Values WBC 9.3 K/mcL (4.3-11.1) 03/16/19 04:02 RBC 5.65 M/mcL (4.19-5.50) H 03/16/19 04:02 Hgb 13.2 g/dL (12.9-16.9) 03/16/19 04:02 Hct 41.7 % (37.5-50.1) 03/16/19 04:02 MCV 73.8 fL (83.0-100.0) L 03/16/19 04:02 MCH 23.4 pg (28.0-33.3) L 03/16/19 04:02 MCHC 31.7 g/dL (31.6-35.5) 03/16/19 04:02 RDW 17.5 % (11.5-14.5) H 03/16/19 04:02 Plt Count 438 K/mcL (140-400) H 03/16/19 04:02 MPV 8.4 fL (9.4-12.4) L 03/16/19 04:02 Immature Gran % 0.5 % (0-4) 03/16/19 04:02 Seg Neutrophils % 73.3 % 03/16/19 04:02 Lymphocytes % 11.8 % 03/16/19 04:02 Monocytes % 10.0 % 03/16/19 04:02 Eosinophils % 3.9 % 03/16/19 04:02 Basophils % 0.5 % 03/16/19 04:02 Neutrophils # 6.8 K/mcL (1.6-8.9) 03/16/19 04:02 Lymphocytes # 1.1 K/mcL (0.6-4.6) 03/16/19 04:02 Monocytes # 0.9 K/mcL (0.0-1.3) 03/16/19 04:02 Eosinophils # 0.4 K/mcL (0.0-0.6) 03/16/19 04:02 Basophils # 0.1 K/mcL (0.0-0.2) 03/16/19 04:02 Sodium 140 mEq/L (136-145) 03/16/19 04:02 Potassium 4.4 mEq/L (3.5-5.1) 03/16/19 04:02 Chloride 105 mEq/L (98-107) 03/16/19 04:02 Carbon Dioxide 21 mEq/L (23-29) L 03/16/19 04:02 BUN 30 mg/dL (8-23) H 03/16/19 04:02 Creatinine 1.99 mg/dL (0.70-1.30) H 03/16/19 04:02 Est GFR ( Amer) 41 (> 60) L 03/16/19 04:02 Est GFR (Non-Af Amer) 34 (> 60) L 03/16/19 04:02 BUN/Creatinine Ratio 15 (6-26) 03/16/19 04:02 Glucose 98 mg/dL (70-105) 03/16/19 04:02 POC Glucose 111 mg/dL (70-99) H 03/16/19 19:33 Calculated Osmolality 296 (280-300) 03/16/19 04:02 Calcium 10.0 mg/dL (8.6-10.3) 03/16/19 04:02 Phosphorus 4.0 mg/dL (2.7-4.5) 03/15/19 15:31 Magnesium 1.9 mg/dL (1.6-2.6) 03/15/19 15:31 Total Bilirubin 0.6 mg/dL (0.3-1.0) 03/15/19 15:31 AST 11 Units/L (13-39) L 03/15/19 15:31 ALT 12 Units/L (7-52) 03/15/19 15:31 Alkaline Phosphatase 88 Units/L (34-104) 03/15/19 15:31 Creatine Kinase 65 Units/L (30-223) 03/15/19 15:31 Troponin I < 0.03 ng/mL (< 0.04) 03/15/19 15:31 Serum Total Protein 6.5 g/dL (6.4-8.9) 03/15/19 15:31 Albumin 3.8 g/dL (3.5-5.7) 03/15/19 15:31 Globulin 2.7 g/dL (2.4-3.5) 03/15/19 15:31 Albumin/Globulin Ratio 1.4 (1.1-2.2) 03/15/19 15:31 Urine Color Yellow (Yellow) 03/15/19 14:50 Urine Clarity Cloudy (Clear) A 03/15/19 14:50 Urine pH 6.0 pH Units (5.0-8.0) 03/15/19 14:50 Ur Specific Bradley 1.009 (1.010-1.025) L 03/15/19 14:50 Urine Protein 30 mg/dL (Neg-Trace) H 03/15/19 14:50 Urine Glucose (UA) Normal mg/dL (Normal) 03/15/19 14:50 Urine Ketones Negative mg/dL (Negative) 03/15/19 14:50 Urine Blood Moderate (Negative) H 03/15/19 14:50 Urine Nitrite Negative (Negative) 03/15/19 14:50 Urine Bilirubin Negative (Negative) 03/15/19 14:50 Urine Urobilinogen Normal mg/dL (Normal) 03/15/19 14:50 Ur Leukocyte Esterase Small (Negative) H 03/15/19 14:50 Urine Microscopic RBC 5-15 per hpf (0-3) H 03/15/19 14:50 Urine Microscopic WBC 15-30 per hpf (0-3) H 03/15/19 14:50 Ur Squamous Epith Cells Many per lpf (None-Few) H 03/15/19 14:50 Urine Bacteria None Seen per hpf (None-Few) 03/15/19 14:50 Hyaline Casts None Seen per lpf (None-Few) 03/15/19 14:50 Ur Culture Indicated? YES (NO) A 03/15/19 14:50 Consult Discharge Plan - Plan Referrals: Elisha Gonzales [Primary Care Provider] - Prescriptions: cephALEXin [Keflex] 500 mg PO BID #10 capsule Finasteride [Proscar] 5 mg PO DAILY #30 tablet - Attending Attestation I examined this patient and my medical decision-making was reviewed with the Resident Physician. I agree with the documented findings, disposition and treatment plan as described except to the extent set forth below. Client has a history of Schizophrenia vs. Major Depression with psychotic features. He used to experience command AH, depressive symptoms, and suicidal thoughts but states he has been symptom free for approximately two years. He takes Abilify and Wellbutrin at home and [facility]. In the hospital client states he developed visual hallucinations of a woman in his room. While some people have VH with their primary thought disorder, it is unusual. Most hallucinations due to mental illness are auditory in nature. It would also be unusual for client to develop VH at this stage in his illness. Most people who have VH with Schizophrenia have always had them as part of their illness and they don't typically transition from hallucinations in one modality (auditory) to another (visual) over time. Visual hallucinations are common in delirium or psychosis secondary to medications/medical illness. Suspect client's UTI is the main culprit. Another consideration would be his medications for Parkinsons Disease. Levadopa raises dopamine in all areas of the brain, not just the nigrostriatal pathway, and too much dopamine in some neural pathways can result in visual hallucinations. If he has had a recent increase in his Levadopa or is not metabolizing this medication as quickly as he used to, it could explain his VH. When seen today client was not experiencing any further symptoms of psychosis. However, if VH return can give him low dose Haldol for a short duration to try and alleviate his symptoms. Recommend 2-5mg PO every 4-6 hours as needed. Call if any questions.
--- NOTE | 2019-03-17 12:37 | Internal Med Progress Note ---
Hospitalist Progress Note - Encounter Date of Encounter: 03/17/19 Time of Encounter: 12:35 - Subjective Interval History: Patient says he has been experiencing hallucinations. Says that he saw a woman in the corner earlier that he thinks was not actually there. Happened to him before her hospital stays. Bladder scan 650 PVR. Orthostatics negative this morning. - Exam Vitals: Temp Pulse Resp BP Pulse Ox 97.9 F 97 20 136/87 99 03/17/19 11:23 03/17/19 11:23 03/17/19 11:23 03/17/19 11:23 03/17/19 11:23 Exam: General: Ill-appearing and in no acute distress HEENT: No erythema of posterior pharynx. No exudates. Lymphatics: No mandibular or cervical lymphadenopathy Cardiovascular: RRR. No murmurs. No chest wall tenderness. Lungs: Clear to auscelltation bilaterally. Regular chest rise. Abdomen: Non-tender. No rebound or gaurding. Nl bowel sounds. Extremities: No edema. 2+ pulses radial and pedal pulses Skin: No rahses, abrasions, or contusions. Nl cap refill. Psych: Nl attention. A&Ox3 but short-term memory poor (does not recall previous hospital stay or recent fall that brought him in) Neuro: R-handed tremor and cogwheel rigidity noted. precise winder II-XII intact. 5/5 strength. Sensation to light touch and pinprick intact. PD negative. - Assessment and Plan (1) Fall from ground level Current Visit: Yes Status: Acute Assessment and Plan: Patient with history of Parkinson's disease complicated by orthostatic hypotension on Midodrine and recurrent falls presents with ground level fall in the setting of stable vitals, unremarkable physical exam without any acute neuro deficits, and unremarkable labs and imaging. -Patient with multiple risk factors for falls: History of Parkinson's disease: Unsteady gait because of his and walks with a cane Probable autonomic dysreflexia causing orthostasis - recently started on midodrine. Orthos negative this morning History of recent hospital stay and likely deconditioned from this PT rec SNF but patient refusing - Patient now open to SNF placement History of stroke in past per patient. Low concern for acute stroke this admission given no acute changes in physical exam -UA dirty but always dirty - still with bacturia. Will start on ABs and tx for retention PLAN: - Will discuss SNF placement with care management - UTI tx - Continue midodrine (2) Acute cystitis with hematuria Current Visit: Yes Status: Acute Assessment and Plan: Urine culture with >100k mixed urinary pathologys, which is always abnormal in males and should be treated for. Associated with urinary retention. Unclear if urinary retention secondary to BPH are neurogenic bladder. Already on tamsulosin. Still having high PVRs. We will further treat for BPH given treatment for neurogenic bladder may increase confusion and propensity for falls given anticholinergic properties. - Ceftriaxone --> Keflex - Initiate Finasteride - Continue tamsulosin (3) Orthostatic hypotension Current Visit: Yes Status: Acute Assessment and Plan: See above. Orthostatics negative this morning. - Continue home midodrine (4) Parkinson disease Current Visit: No Status: Chronic Assessment and Plan: See discussion above. - Continue home medications (5) CKD (chronic kidney disease) stage 3, GFR 30-59 ml/min Current Visit: Yes Status: Acute Assessment and Plan: At baseline (6) Type 2 diabetes mellitus Current Visit: No Status: Chronic Assessment and Plan: On orals outpatient. - LDSS (7) Bladder cancer Current Visit: No Status: Ruled-out Assessment and Plan: History of bladder cancer and patient has had hematuria during recent hospitalizations but in setting of UTI. - Will have patient f/u urology o/p (8) Hallucinations Current Visit: Yes Status: Acute Assessment and Plan: Probably hospital delirium given patient has had hallucinations in the past in the hospital and resolved after discharge. - Treatment for infection DVT Prophylaxis: LMWH - Time Spent with Patient Total time spent is greater than 50% in coordination of care (as documented) at patient's floor/unit and/or counseling patient: Internal Medicine: Result - Labs CBC & Chem 7: 03/16/19 04:02 03/16/19 04:02 Consult Discharge Plan - Plan Referrals: Elisha Gonzales [Primary Care Provider] - (6) Type 2 diabetes mellitus Qualifiers: Diabetes mellitus exterminator insulin use: without assisted use Diabetes mellitus complication status: without complication Qualified Code(s): E11.9 - Type 2 diabetes mellitus without complications (7) Bladder cancer Qualifiers: Bladder location: unspecified site Qualified Code(s): C67.9 - Malignant neoplasm of bladder, unspecified
[2019-03-17] MEDS ORDERED: Finasteride 5 MG TABLET PO SCH (12:46)
--- NOTE | 2019-03-17 14:47 | Electrocardiograph Report ---
[address] [address] Test Date: 2019-03-15 Pat Name: Moshe Walters Department: EXAM2 Room: 3B22 Gender: M Manager Mechanical: : [id number] Requested By: Rae Yun Order Number: [id number] Reading MD: Fab Knapp Measurements Intervals [place] Rate: 100 P: 48 IN: 194 QRS: 28 QRSD: 86 T: 20 QT: 338 QTc: 436 Interpretive Statements Sinus tachycardia Abnormal R-wave progression, early transition Electronically Signed On 03-17-2019 14:45:24 EDT by Fab Knapp
[2019-03-17 15:23] VITALS: BP 128/87
--- NOTE | 2019-03-17 16:22 | Discharge Summary ---
Date of Encounter: 03/17/19 Time of Encounter: 16:20 - Discharge Diagnosis (1) Fall from ground level Priority: Primary Status: Acute (2) Acute cystitis with hematuria Priority: Secondary Status: Acute (3) Hallucinations Priority: Secondary Status: Resolved (4) CKD (chronic kidney disease) stage 3, GFR 30-59 ml/min Priority: Secondary Status: Acute (5) Orthostatic hypotension Priority: Secondary Status: Acute (6) Bladder cancer Priority: Secondary Status: Ruled-out Qualifiers: Bladder location: unspecified site Qualified Code(s): C67.9 - Malignant neoplasm of bladder, unspecified (7) Urinary retention Priority: Secondary Status: Acute Hospital course: Mr. Walters is a 63 year old male with history of Parkinson's disease complicated by orthostatic hypotension on Midodrine and recurrent falls presented with ground level fall in the setting of stable vitals, labs, and imaging. Patient assessed and recurrent falls likely 2/2 unsteady gait because of his Parkinson's disease and weakness from multiple hospital stays and inpatient therapies recommending patient discharge to SNF for rehabilitation. Hx of orthostasis on midodrine but orthostatics negative this hospital admission and patient denies dizziness with ambulation. Evidence of UTI due to chronic urinary retention. Unclear if this was related to fall but will complete 7 days of ABs for this and is on Tamsulosin and Finasteride to help with urinary retention. Recommend post- void bladder scans daily at SNF. If retention continues to be an issue, recommend o/p f/u with urology. - Time Spent with Patient Total time spent providing and/or coordinating discharge services: - Discharge Medications Prescriptions: New cephALEXin [Keflex] 500 mg PO BID #10 capsule Finasteride [Proscar] 5 mg PO DAILY #30 tablet Continued ARIPiprazole [Abilify] 10 mg PO DAILY #30 tablet Benztropine Mesylate 2 mg PO BID BuPROPion XL (24 HR) [Wellbutrin Xl] 150 mg PO 0900,1400 Quetiapine Fumarate [Seroquel] 200 mg PO HS Atorvastatin [Lipitor] 40 mg PO HS metFORMIN [Glucophage] 500 mg PO BIDWM Tamsulosin [Flomax] 0.4 mg PO DAILY Midodrine [ProAmatine] 5 mg PO 0800,1200,1700 #90 tablet Gabapentin [Neurontin] 300 mg PO DAILY Albuterol Sulfate [Ventolin Hfa] 2 puff IH Q4H PRN PRN Reason: Shortness Of Breath Discontinued hydrOXYzine HCl [Hydroxyzine HCl] 25 mg PO QID PRN PRN Reason: Anxiety Lisinopril [Zestril] 10 mg PO DAILY Amlodipine Besylate 10 mg PO DAILY Home Medications: ARIPiprazole [Abilify] 10 mg PO DAILY #30 tablet 01/09/17 [Rx] Benztropine Mesylate 2 mg PO BID 04/16/18 [History] Atorvastatin [Lipitor] 40 mg PO HS 10/25/18 [History] BuPROPion XL (24 HR) [Wellbutrin Xl] 150 mg PO 0900,1400 10/25/18 [History] Quetiapine Fumarate [Seroquel] 200 mg PO HS 10/25/18 [History] Tamsulosin [Flomax] 0.4 mg PO DAILY 10/25/18 [History] metFORMIN [Glucophage] 500 mg PO BIDWM 10/25/18 [History] Midodrine [ProAmatine] 5 mg PO 0800,1200,1700 #90 tablet 03/10/19 [Rx] Albuterol Sulfate [Ventolin Hfa] 2 puff IH Q4H PRN 03/16/19 [History] Gabapentin [Neurontin] 300 mg PO DAILY 03/16/19 [History] Finasteride [Proscar] 5 mg PO DAILY #30 tablet 03/17/19 [Rx] cephALEXin [Keflex] 500 mg PO BID #10 capsule 03/17/19 [Rx] Allergies/Adverse Reactions: Allergy/AdvReac Type Severity Reaction Status Date / Time esomeprazole [From Nexium] Allergy Rash Verified 01/03/17 09:30 Cyclobenzaprine AdvReac Hypotension Verified 01/03/17 09:30 [From Flexeril] Date of admission: 03/15/19 19:31 Primary care physician: Elisha Gonzales Consults: 03/15/19 17:45 Consult to Physical Therapy [CONS] Routine Comment: Evaluate, develop and implement POC Reason for Consult: recurrent falls at home, deconditioning Does patient have active BEDREST order?: No Is patient medically & hemodynamically stable?: Yes Patient assessed for mobility or mobilized this visit?: No 03/16/19 08:56 Consult to Wound Nurse [CONS] Routine Reason for SW Consult: PT RECOMMENDS SNF 03/16/19 15:21 Consult to Occupational Therapy [CONS] Routine Comment: Evaluate, develop and implement POC Reason for Consult: WEAKNESS, PT RECOMMENDING PLACEMENT Does patient have active BEDREST order?: No Is patient medically & hemodynamically stable?: Yes 03/17/19 06:34 Consult to Psychiatry [CONS] Routine Consulting Provider: Psychiatry Barbara Reason consult: Other Other reason and/or additional details: Hallucinating overnight Call Completed: Yes - Constitutional Vitals: Temp Pulse Resp BP Pulse Ox 97.8 F 96 12 128/87 96 03/17/19 15:21 03/17/19 15:21 03/17/19 15:21 03/17/19 15:21 03/17/19 15:21 Exam: General: Ill-appearing and in no acute distress HEENT: No erythema of posterior pharynx. No exudates. Lymphatics: No mandibular or cervical lymphadenopathy Cardiovascular: RRR. No murmurs. No chest wall tenderness. Lungs: Clear to auscelltation bilaterally. Regular chest rise. Abdomen: Non-tender. No rebound or gaurding. Nl bowel sounds. Extremities: No edema. 2+ pulses radial and pedal pulses Skin: No rahses, abrasions, or contusions. Nl cap refill. Psych: Nl attention. A&Ox3 Neuro: quilter fixer II-XII intact. 5/5 strength. Sensation to light touch and pinprick intact. - Patient Status Disposition: Transfer SNF Condition: Good Functional capacity at discharge: uses cane/walker Overall status at discharge: patient is progressing back to baseline - Discharge Instructions Follow Up With: Elisha Gonzales [Primary Care Provider] - - Diet and Activity Activity: as per physical therapy Diet: advance to your usual diet
--- NOTE | 2019-03-17 16:39 | Physician Discharge Referral ---
ExtendedCare Referral Info Transfer To: SNF Provider in Charge: Tyrone HILLIARD Provider in Charge after Transfer: PCP, Rn Clinical Appeals Institutional Level of Care: Skilled - Diagnosis (1) Fall from ground level Status: Acute (2) Gait instability Priority: Secondary Status: Acute (3) Physical deconditioning Priority: Secondary Status: Acute (4) Acute cystitis with hematuria Priority: Secondary Status: Acute (5) Hallucinations Priority: Secondary Status: Resolved (6) CKD (chronic kidney disease) stage 3, GFR 30-59 ml/min Priority: Secondary Status: Acute (7) Orthostatic hypotension Priority: Secondary Status: Acute (8) Bladder cancer Priority: Secondary Status: Ruled-out (9) Urinary retention Priority: Secondary Status: Acute - Transfer Medications Prescriptions: cephALEXin [Keflex] 500 mg PO BID #10 capsule Finasteride [Proscar] 5 mg PO DAILY #30 tablet Home Medications: ARIPiprazole [Abilify] 10 mg PO DAILY #30 tablet 01/09/17 [Rx] Benztropine Mesylate 2 mg PO BID 04/16/18 [History] Atorvastatin [Lipitor] 40 mg PO HS 10/25/18 [History] BuPROPion XL (24 HR) [Wellbutrin Xl] 150 mg PO 0900,1400 10/25/18 [History] Quetiapine Fumarate [Seroquel] 200 mg PO HS 10/25/18 [History] Tamsulosin [Flomax] 0.4 mg PO DAILY 10/25/18 [History] metFORMIN [Glucophage] 500 mg PO BIDWM 10/25/18 [History] Midodrine [ProAmatine] 5 mg PO 0800,1200,1700 #90 tablet 03/10/19 [Rx] Albuterol Sulfate [Ventolin Hfa] 2 puff IH Q4H PRN 03/16/19 [History] Gabapentin [Neurontin] 300 mg PO DAILY 03/16/19 [History] Finasteride [Proscar] 5 mg PO DAILY #30 tablet 03/17/19 [Rx] cephALEXin [Keflex] 500 mg PO BID #10 capsule 03/17/19 [Rx] Allergies/Adverse Reactions: Allergy/AdvReac Type Severity Reaction Status Date / Time esomeprazole [From Nexium] Allergy Rash Verified 01/03/17 09:30 Cyclobenzaprine AdvReac Hypotension Verified 01/03/17 09:30 [From Flexeril] - Respiratory Orders Smoking Cessation: Smoking cessation has been advised. For more information, call the [place] Tobacco Quit Line at 5-233-ZXTZ-NOW. - Lab Orders Lab Orders: Other (include drug levels w/frequency) (Daily bladder scans with straight cath prn for PVR >500cc) - Advance Directives Living Will: No Power of Public Health Advisor for Health Care: No Code Status: Full Code - Mobility Orders Ambulate - Rehabiliation Orders Rehab Potential: Good Rehab Orders: Evaluation for Physical Therapy, Evaluation for Occupational Therapy - Diet Orders Regular CERTIFICATION: I certify that the transfer of the above named patient to an Extended Care Facility is necessary for the continuing treatment of the diagnosis listed. The above information is true and accurate reflection of patient's current condition. Confidential - Redisclosure prohibited without a patient's written consent.
[2019-03-17] MEDS ORDERED: cephALEXin 500 MG CAPSULE PO SCH (21:00)
== END 2019-03-17 18:32 | DRG 42 ==
LOC: SUATTDRO → 3BNU 14:14 → EMEROOARM 14:14 → OBSVTOIN 19:31 → 3BNU 20:01
PROVIDERS: ADMIT Internal Medicine; ATTEND Internal Medicine

== ENCOUNTER 2020-07-04 08:15 | Inpatient (IN) ==
[2020-07-04 08:49] LABS: Basophils # 0.1 K/mcL (0.0-0.2); Basophils % 0.5 %; Eosinophils # 0.3 K/mcL (0.0-0.6); Hematocrit 38.7 % (37.5-50.1); Hemoglobin 12.7 g/dL (12.9-16.9); Immature Granulocytes % 0.5 % (0-4); Lymphocytes # 1.5 K/mcL (0.6-4.6); Lymphocytes % 14.8 %; Mean Corpuscular HGB Conc 32.8 g/dL (31.6-35.5); Mean Corpuscular Hemoglobin 23.5 pg (28.0-33.3); Mean Corpuscular Volume 71.7 fL (83.0-100.0); Mean Platelet Volume 7.9 fL (9.4-12.4); Monocytes # 1.4 K/mcL (0.0-1.3); Monocytes % 13.7 %; Neutrophils # 6.7 K/mcL (1.6-8.9); Platelet Count 433 K/mcL (140-400); Red Cell Distribution Width 18.2 % (11.5-14.5); Segmented Neutrophils % 67.5 %; White Blood Count 9.9 K/mcL (4.3-11.1)
[2020-07-04] MEDS: 0.9 % Sodium Chloride 1,000 ML IVC ONE ×2 (08:58→12:30)
[2020-07-04 09:10] LABS: BUN/Creatinine Ratio 21 (6-26); Blood Urea Nitrogen 40 mg/dL (8-23); Calcium 9.4 mg/dL (8.6-10.3); Carbon Dioxide 20 mEq/L (23-29); Chloride 95 mEq/L (98-107); Glucose 91 mg/dL (70-105); Osmolality,Calculated 269 (280-300); Potassium 4.2 mEq/L (3.5-5.1); Sodium 125 mEq/L (136-145); Troponin I < 0.03 ng/mL (< 0.04); eGFR For African Americans 42 (> 60); eGFR For Non-African Americans 35 (> 60)
[2020-07-04 09:36] LABS: Bilirubin,Urine Negative (Negative); Blood,Urine Large (Negative); Clarity,Urine Turbid (Clear); Color,Urine Light-Orange (Yellow); Glucose,Urine (UA) Normal (Normal); Ketones,Urine Negative (Negative); Leukocyte Esterase,Urine Negative (Negative); Nitrite,Urine Negative (Negative); PH,Urine 6.5 pH Units (5.0-8.0); Protein,Urine >=300 mg/dL (Neg-Trace); Specific Gravity,Urine 1.016 (1.010-1.025); Urobilinogen,Urine Normal (Normal)
[2020-07-04 09:46] LABS: Bacteria,Urine Few per hpf (None-Few); Budding Yeast,Urine Few per hpf (None Seen); RBC,Urine TNTC per hpf (0-3)
[2020-07-04 09:47] LABS: Squamous Epithelial Cell,Urine Few per hpf (None-Few); Transitional Epi Cells,Urine Few per hpf (None-Few)
[2020-07-04] MEDS ORDERED: Dextrose Gel 15 GM/37.5 ML TUBE PO PRN ×2 (10:30)
[2020-07-04] MEDS ORDERED: D5% in Water 1,000 ML IVC PRN (10:30)
[2020-07-04] MEDS ORDERED: *HR* Dextrose 50 % in Water (Vial) 50 ML VIAL IVP PRN (10:30)
[2020-07-04] MEDS ORDERED: Naloxone 0.4 MG/ML INJ IVP PRN (10:30)
[2020-07-04 10:31] LABS: Alanine Aminotransferase 11 Units/L (7-52); Albumin/Globulin Ratio 1.6 (1.1-2.2); Alkaline Phosphatase 86 Units/L (34-104); Aspartate Amino Transferase 16 Units/L (13-39); Bilirubin,Direct 0.2 mg/dL (0.0-0.2); Bilirubin,Indirect 0.7 mg/dL (0.0-1.0); Bilirubin,Total 0.9 mg/dL (0.3-1.0); Creatine Kinase 296 Units/L (30-223); Globulin 2.5 g/dL (2.4-3.5); Total Protein 6.5 g/dL (6.4-8.9)
[2020-07-04 10:43] LABS: Thyroid Stimulating Hormone 3.235 mcIU/mL (0.340-5.600)
[2020-07-04] MEDS ORDERED: *HR* Labetalol 20 MG/4 ML SYRINGE IVP PRN (10:56)
[2020-07-04 11:00] LABS: INR 1.1; Prothrombin Time 13.2 Seconds (9.4-12.1)
[2020-07-04 11:02] LABS: Magnesium 1.6 mg/dL (1.6-2.6); Phosphorous 3.9 mg/dL (2.7-4.5)
[2020-07-04 11:06] LABS: Folate 8.7 ng/mL (3.0-16.0)
[2020-07-04 11:37] LABS: Estimated Average Glucose 123 mg/dl
[2020-07-04] MEDS: Insulin LISPRO 300 UNITS/3 ML VIAL SQ SCH ×3 (12:17→21:32)
[2020-07-04] MEDS ORDERED: 0.9 % Sodium Chloride 1,000 ML ONE (12:31)
[2020-07-04] MEDS ORDERED: Ringers Solution, Lactated 1,000 ML IVC SCH (19:15)
[2020-07-04] MEDS ORDERED: levoFLOXacin 750 MG/150 ML 750 MG/150 ML BAG IVPB SCH (19:30)
[2020-07-04] MEDS ORDERED: QUEtiapine Fumarate 25 MG TABLET PO SCH (21:00)
[2020-07-05 05:43] LABS: Basophils % 0.5 %; Eosinophils # 0.3 K/mcL (0.0-0.6); Eosinophils % 2.9 %; Hematocrit 37.7 % (37.5-50.1); Hemoglobin 12.1 g/dL (12.9-16.9); Immature Granulocytes % 0.7 % (0-4); Lymphocytes # 1.2 K/mcL (0.6-4.6); Lymphocytes % 13.8 %; Mean Corpuscular HGB Conc 32.1 g/dL (31.6-35.5); Mean Corpuscular Hemoglobin 22.9 pg (28.0-33.3); Mean Corpuscular Volume 71.3 fL (83.0-100.0); Mean Platelet Volume 7.8 fL (9.4-12.4); Monocytes # 1.2 K/mcL (0.0-1.3); Monocytes % 13.4 %; Neutrophils # 6.1 K/mcL (1.6-8.9); Platelet Count 401 K/mcL (140-400); Red Blood Count 5.29 M/mcL (4.19-5.50); Red Cell Distribution Width 17.8 % (11.5-14.5); Segmented Neutrophils % 68.7 %; White Blood Count 8.9 K/mcL (4.3-11.1)
[2020-07-05 06:24] LABS: Calcium 8.8 mg/dL (8.6-10.3); Potassium 4.2 mEq/L (3.5-5.1)
[2020-07-05] MEDS: Insulin LISPRO 300 UNITS/3 ML VIAL SQ SCH ×4 (08:00→20:50)
[2020-07-05] MEDS ORDERED: Cyanocobalamin (B-12) 1,000 MCG/ML VIAL IM ONE (08:52)
[2020-07-05] MEDS ORDERED: hydrOXYzine pamoate 25 MG CAPSULE PO PRN (14:26)
[2020-07-05] MEDS ORDERED: QUEtiapine Fumarate 100 MG TABLET PO SCH (21:00)
[2020-07-06 02:36] LABS: Hematocrit 37.9 % (37.5-50.1); Mean Corpuscular HGB Conc 31.7 g/dL (31.6-35.5); Mean Corpuscular Hemoglobin 22.7 pg (28.0-33.3); Mean Corpuscular Volume 71.8 fL (83.0-100.0); Mean Platelet Volume 8.2 fL (9.4-12.4); Platelet Count 426 K/mcL (140-400); Red Blood Count 5.28 M/mcL (4.19-5.50); Red Cell Distribution Width 17.7 % (11.5-14.5); White Blood Count 9.5 K/mcL (4.3-11.1)
[2020-07-06 02:54] LABS: Calcium 8.4 mg/dL (8.6-10.3); Potassium 4.2 mEq/L (3.5-5.1)
[2020-07-06] MEDS: Insulin LISPRO 300 UNITS/3 ML VIAL SQ SCH ×3 (07:32→17:47)
[2020-07-06] MEDS ORDERED: lisinopriL 10 MG TABLET PO SCH (12:00)
[2020-07-06] MEDS ORDERED: Promethazine 6.25 MG in Water for inj. (sterile) 20 ML IVPB PRN (16:15)
[2020-07-06] MEDS ORDERED: *HR* HYDROmorphone PF 0.5 MG/0.5 ML SYRINGE IVP PRN (16:15)
[2020-07-06] MEDS ORDERED: Ondansetron 4 MG/2 ML VIAL IVP PRN (16:15)
[2020-07-06] MEDS ORDERED: *HR* OxyCODONE Immed Rel 5 MG TABLET PO PRN (16:15)
[2020-07-06] MEDS ORDERED: *HR* Midazolam HCl 2 MG/2 ML VIAL ONE (16:42)
[2020-07-06] MEDS ORDERED: Dexamethasone 4 MG/ML VIAL ONE (16:42)
[2020-07-06] MEDS ORDERED: Ondansetron 4 MG/2 ML VIAL ONE (16:42)
[2020-07-06] MEDS ORDERED: Lidocaine -MPF 2% 2 ML VIAL ONE (16:42)
[2020-07-06] MEDS ORDERED: *HR* FentaNYL (PF) 100 MCG/2 ML VIAL ONE (16:42)
[2020-07-06] MEDS ORDERED: *HR* Propofol 200 MG/20 ML VIAL IVP ONE (16:43)
[2020-07-06] MEDS ORDERED: *HR* PHENYLEPHRINE 1,000 MCG/10 ML SYRINGE IVP ONE (17:28)
[2020-07-06] MEDS ORDERED: Heparin 1,000 UNITS/500 mL 500 ML ONE (17:28)
[2020-07-06] MEDS ORDERED: Ringers Solution, Lactated 1,000 ML ONE (19:33)
[2020-07-06] MEDS ORDERED: Dextrose Gel 15 GM/37.5 ML TUBE PO PRN ×2 (19:52)
[2020-07-06] MEDS ORDERED: D5% in Water 1,000 ML IVC PRN (19:52)
[2020-07-06] MEDS ORDERED: Naloxone 0.4 MG/ML INJ IVP PRN (19:52)
[2020-07-06] MEDS ORDERED: *HR* Dextrose 50 % in Water (Vial) 50 ML VIAL IVP PRN (19:52)
[2020-07-06] MEDS ORDERED: *HR* HYDROcodone/Acet 10/325 mg TABLET PO PRN (19:52)
[2020-07-06] MEDS ORDERED: *HR* Labetalol 20 MG/4 ML SYRINGE IVP PRN (19:52)
[2020-07-06] MEDS ORDERED: hydrOXYzine pamoate 25 MG CAPSULE PO PRN (19:52)
[2020-07-06] MEDS ORDERED: QUEtiapine Fumarate 100 MG TABLET PO SCH ×2 (21:00)
[2020-07-06] MEDS ORDERED: Insulin LISPRO 300 UNITS/3 ML VIAL SQ SCH (21:00)
[2020-07-07 02:08] LABS: Hematocrit 39.4 % (37.5-50.1); Hemoglobin 12.9 g/dL (12.9-16.9); Mean Corpuscular HGB Conc 32.7 g/dL (31.6-35.5); Mean Corpuscular Hemoglobin 23.7 pg (28.0-33.3); Mean Corpuscular Volume 72.4 fL (83.0-100.0); Mean Platelet Volume 8.2 fL (9.4-12.4); Platelet Count 456 K/mcL (140-400); Red Blood Count 5.44 M/mcL (4.19-5.50); Red Cell Distribution Width 18.1 % (11.5-14.5); White Blood Count 7.4 K/mcL (4.3-11.1)
[2020-07-07 02:33] LABS: Calcium 8.8 mg/dL (8.6-10.3); Potassium 4.6 mEq/L (3.5-5.1)
[2020-07-07 06:52] VITALS: BP 162/95
[2020-07-07] MEDS ORDERED: Insulin LISPRO 300 UNITS/3 ML VIAL SQ SCH (07:30)
[2020-07-07] MEDS ORDERED: lisinopriL 10 MG TABLET PO SCH (09:00)
[2020-07-07] MEDS ORDERED: BuPROPion XL (24 HR) 150 MG TABLET PO SCH (09:00)
[2020-07-07] MEDS ORDERED: FLU Vac QV 20-21 (6Month+)/PF 0.5 ML SYRINGE IM ONE (09:46)
== END 2020-07-07 12:42 | disposition home health service (06) | DRG 952 ==
LOC: 3ANU 08:15 → EMEROOARM 08:15 → 3ANU 11:03
PROVIDERS: ADMIT Student in an Organized Health Care Education/Training Program; ATTEND Student in an Organized Health Care Education/Training Program
PROC: UROTURP (2020-07-06 19:05)

== ENCOUNTER 2021-03-01 14:49 | Inpatient (IN) ==
[2021-03-01] MEDS ORDERED: Ondansetron 4 MG/2 ML VIAL IVP ONE (15:03)
[2021-03-01 15:34] LABS: Basophils # 0.1 K/mcL (0.0-0.2); Basophils % 0.8 %; Eosinophils # 0.4 K/mcL (0.0-0.6); Hematocrit 42.1 % (37.5-50.1); Hemoglobin 13.8 g/dL (12.9-16.9); Immature Granulocytes % 0.4 % (0-4); Lymphocytes # 1.8 K/mcL (0.6-4.6); Lymphocytes % 19.2 %; Mean Corpuscular HGB Conc 32.8 g/dL (31.6-35.5); Mean Corpuscular Hemoglobin 24.1 pg (28.0-33.3); Mean Corpuscular Volume 73.6 fL (83.0-100.0); Mean Platelet Volume 8.4 fL (9.4-12.4); Monocytes # 1.3 K/mcL (0.0-1.3); Monocytes % 14.6 %; Neutrophils # 5.6 K/mcL (1.6-8.9); Platelet Count 394 K/mcL (140-400); Red Blood Count 5.72 M/mcL (4.19-5.50); Red Cell Distribution Width 15.7 % (11.5-14.5); White Blood Count 9.2 K/mcL (4.3-11.1)
[2021-03-01 15:55] LABS: Alanine Aminotransferase 17 Units/L (7-52); Albumin 4.2 g/dL (3.5-5.7); Albumin/Globulin Ratio 1.4 (1.1-2.2); Alkaline Phosphatase 107 Units/L (34-104); Aspartate Amino Transferase 14 Units/L (13-39); BUN/Creatinine Ratio 16 (6-26); Bilirubin,Total 0.4 mg/dL (0.3-1.0); Blood Urea Nitrogen 24 mg/dL (8-23); Carbon Dioxide 25 mEq/L (23-29); Chloride 107 mEq/L (98-107); Glucose 101 mg/dL (70-105); Lipase 28 Units/L (11-82); Osmolality,Calculated 288 (280-300); Potassium 4.5 mEq/L (3.5-5.1); Sodium 137 mEq/L (136-145); Total Protein 7.2 g/dL (6.4-8.9); Troponin I < 0.03 ng/mL (< 0.04); eGFR For African Americans 58 (> 60); eGFR For Non-African Americans 48 (> 60)
[2021-03-01 16:49] LABS: Bacteria,Urine Few per hpf (None-Few); Bilirubin,Urine Negative (Negative); Blood,Urine Negative (Negative); Clarity,Urine Clear (Clear); Color,Urine Light-Yellow (Yellow); Glucose,Urine (UA) Normal (Normal); Ketones,Urine Negative (Negative); Leukocyte Esterase,Urine Negative (Negative); Mucus,Urine Few per lpf (None-Few); Nitrite,Urine Negative (Negative); Protein,Urine 30 mg/dL (Neg-Trace); RBC,Urine 0-3 per hpf (0-3); Specific Gravity,Urine 1.018 (1.010-1.025); Squamous Epithelial Cell,Urine Few per hpf (None-Few); Urobilinogen,Urine Normal (Normal); WBC,Urine 0-3 per hpf (0-3)
[2021-03-01] MEDS: Nitroglycerin 0.4 MG TAB.SUBL SL SCH ×2 (17:50→20:28)
[2021-03-01] MEDS ORDERED: lisinopriL 10 MG TABLET PO ONE (18:00)
[2021-03-01] MEDS ORDERED: D5% in Water 1,000 ML IVC PRN (18:49)
[2021-03-01] MEDS ORDERED: *HR* Dextrose 50 % in Water (Vial) 50 ML VIAL IVP PRN (18:49)
[2021-03-01] MEDS ORDERED: Naloxone 0.4 MG/ML INJ IVP PRN (18:49)
[2021-03-01] MEDS ORDERED: Dextrose Gel 15 GM/37.5 ML TUBE PO PRN ×2 (18:49)
[2021-03-01] MEDS ORDERED: Ondansetron 4 MG/2 ML VIAL IVP PRN (18:49)
[2021-03-01] MEDS ORDERED: Aspirin 81 MG TAB.CHEW PO ONE (18:51)
[2021-03-01] MEDS ORDERED: Nitroglycerin 0.4 MG TAB.SUBL SL PRN (18:52)
[2021-03-02] MEDS: *HR* Heparin 5,000 UNIT/ML VIAL SQ SCH ×2 (04:59→17:36)
[2021-03-02 05:05] LABS: Basophils # 0.1 K/mcL (0.0-0.2); Basophils % 1.2 %; Eosinophils # 0.4 K/mcL (0.0-0.6); Eosinophils % 5.9 %; Hematocrit 42.3 % (37.5-50.1); Hemoglobin 13.7 g/dL (12.9-16.9); Immature Granulocytes % 0.3 % (0-4); Lymphocytes # 1.4 K/mcL (0.6-4.6); Lymphocytes % 20.2 %; Mean Corpuscular HGB Conc 32.4 g/dL (31.6-35.5); Mean Corpuscular Hemoglobin 23.5 pg (28.0-33.3); Mean Corpuscular Volume 72.7 fL (83.0-100.0); Mean Platelet Volume 8.6 fL (9.4-12.4); Monocytes # 1.1 K/mcL (0.0-1.3); Monocytes % 15.9 %; Neutrophils # 3.9 K/mcL (1.6-8.9); Platelet Count 391 K/mcL (140-400); Red Blood Count 5.82 M/mcL (4.19-5.50); Red Cell Distribution Width 15.8 % (11.5-14.5); Segmented Neutrophils % 56.5 %; White Blood Count 6.9 K/mcL (4.3-11.1)
[2021-03-02 05:20] LABS: Calcium 9.4 mg/dL (8.6-10.3); Chol/HDL Ratio 5.3 (0-4.9); Magnesium 1.8 mg/dL (1.6-2.6); Potassium 4.1 mEq/L (3.5-5.1)
[2021-03-02 05:55] LABS: Estimated Average Glucose 137 mg/dl; Hemoglobin A1C 6.4 %
[2021-03-02] MEDS: Insulin LISPRO 300 UNITS/3 ML VIAL SUBQ SCH ×3 (07:11→17:06)
[2021-03-02] MEDS: Aspirin 81 MG TAB.CHEW PO SCH (07:14)
[2021-03-02] MEDS ORDERED: Regadenoson 0.4 MG/5 ML SYRINGE IVP ONE (07:25)
[2021-03-02] MEDS: Carbidopa/Levodopa 25/100 TABLET PO SCH (17:06)
[2021-03-02] MEDS: BuPROPion XL (24 HR) 150 MG TABLET PO SCH (17:06)
[2021-03-02] MEDS: FLUoxetine 20 MG CAPSULE PO SCH (17:06)
[2021-03-02] MEDS: ARIPiprazole 10 MG TABLET PO SCH (17:06)
[2021-03-02] MEDS: lisinopriL 10 MG TABLET PO SCH (17:08)
[2021-03-02] MEDS: traZODone 50 MG TABLET PO SCH (20:34)
[2021-03-02] MEDS ORDERED: *HR* Metoprolol 5 MG/5 ML VIAL IVP ONE (20:51)
[2021-03-03] MEDS: *HR* Heparin 5,000 UNIT/ML VIAL SQ SCH ×2 (04:44→16:25)
[2021-03-03] MEDS ORDERED: Perflutren Lipid Microsphere 1.3 ML in 0.9 % Sodium Chloride 8.7 ML IVP PRN (07:01)
[2021-03-03] MEDS: Insulin LISPRO 300 UNITS/3 ML VIAL SUBQ SCH ×3 (07:12→16:25)
[2021-03-03] MEDS: BuPROPion XL (24 HR) 150 MG TABLET PO SCH (08:12)
[2021-03-03] MEDS: lisinopriL 10 MG TABLET PO SCH (08:12)
[2021-03-03] MEDS: Aspirin 81 MG TAB.CHEW PO SCH (08:12)
[2021-03-03] MEDS: ARIPiprazole 10 MG TABLET PO SCH (08:12)
[2021-03-03] MEDS: FLUoxetine 20 MG CAPSULE PO SCH (08:12)
[2021-03-03] MEDS: Carbidopa/Levodopa 25/100 TABLET PO SCH ×3 (08:12→19:52)
[2021-03-03] MEDS ORDERED: amLODIPine 5 MG TABLET PO SCH (09:00)
[2021-03-03] MEDS: Metoprolol XL (24 HR) Succ 25 MG TAB.ER.24H PO SCH (09:48)
[2021-03-03] MEDS: traZODone 50 MG TABLET PO SCH (19:51)
[2021-03-03] MEDS: Acetaminophen 325 MG TABLET PO PRN (19:55)
[2021-03-04 01:52] LABS: Basophils # 0.1 K/mcL (0.0-0.2); Basophils % 1.1 %; Eosinophils # 0.5 K/mcL (0.0-0.6); Eosinophils % 8.4 %; Hematocrit 42.2 % (37.5-50.1); Hemoglobin 12.6 g/dL (12.9-16.9); Immature Granulocytes % 0.2 % (0-4); Lymphocytes # 1.4 K/mcL (0.6-4.6); Lymphocytes % 22.1 %; Mean Corpuscular HGB Conc 29.9 g/dL (31.6-35.5); Mean Corpuscular Hemoglobin 23.4 pg (28.0-33.3); Mean Corpuscular Volume 78.3 fL (83.0-100.0); Mean Platelet Volume 8.6 fL (9.4-12.4); Monocytes # 0.9 K/mcL (0.0-1.3); Monocytes % 14.8 %; Neutrophils # 3.4 K/mcL (1.6-8.9); Platelet Count 281 K/mcL (140-400); Red Blood Count 5.39 M/mcL (4.19-5.50); Red Cell Distribution Width 16.2 % (11.5-14.5); Segmented Neutrophils % 53.4 %; White Blood Count 6.3 K/mcL (4.3-11.1)
[2021-03-04 02:36] LABS: Calcium 8.7 mg/dL (8.6-10.3); Potassium 4.3 mEq/L (3.5-5.1)
[2021-03-04] MEDS: *HR* Heparin 5,000 UNIT/ML VIAL SQ SCH ×2 (05:08→18:01)
[2021-03-04] MEDS: Insulin LISPRO 300 UNITS/3 ML VIAL SUBQ SCH ×3 (07:19→18:01)
[2021-03-04] MEDS: ARIPiprazole 10 MG TABLET PO SCH (08:22)
[2021-03-04] MEDS: Aspirin 81 MG TAB.CHEW PO SCH (08:22)
[2021-03-04] MEDS: Metoprolol XL (24 HR) Succ 25 MG TAB.ER.24H PO SCH (08:22)
[2021-03-04] MEDS: lisinopriL 10 MG TABLET PO SCH (08:22)
[2021-03-04] MEDS: BuPROPion XL (24 HR) 150 MG TABLET PO SCH (08:22)
[2021-03-04] MEDS: Carbidopa/Levodopa 25/100 TABLET PO SCH ×3 (08:22→21:36)
[2021-03-04] MEDS: FLUoxetine 20 MG CAPSULE PO SCH (08:22)
[2021-03-04] MEDS: Acetaminophen 325 MG TABLET PO PRN (08:28)
[2021-03-04] MEDS ORDERED: Metoprolol XL (24 HR) Succ 25 MG TAB.ER.24H PO ONE (09:30)
[2021-03-04] MEDS ORDERED: *HR* Midazolam HCl 2 MG/2 ML VIAL ONE (10:13)
[2021-03-04] MEDS ORDERED: *HR* FentaNYL (PF) 100 MCG/2 ML VIAL ONE (10:14)
[2021-03-04] MEDS ORDERED: 0.9 % Sodium Chloride 2,000 ML ONE (10:14)
[2021-03-04] MEDS ORDERED: *HR* Heparin 10,000 UNIT/10 ML VIAL ONE (10:14)
[2021-03-04] MEDS ORDERED: Heparin 1,000 UNITS/500 mL 500 ML ONE (10:14)
[2021-03-04] MEDS ORDERED: ISOVUE-370 200 ML INFUS..BTL ONE (10:15)
[2021-03-04] MEDS ORDERED: Nitroglycerin 1,000 MCG/5 ML VIAL IV ONE (10:15)
[2021-03-04] MEDS ORDERED: 0.9 % Sodium Chloride 1,000 ML IVC SCH ×2 (11:30→12:30)
[2021-03-04] MEDS ORDERED: *HR* Ticagrelor 90 MG TABLET ONE (11:35)
[2021-03-04] MEDS: traZODone 50 MG TABLET PO SCH (21:36)
[2021-03-04 23:28] VITALS: TEMP 97.5
[2021-03-05 02:46] LABS: Hematocrit 39.5 % (37.5-50.1); Hemoglobin 12.2 g/dL (12.9-16.9)
[2021-03-05 04:15] LABS: Calcium 8.7 mg/dL (8.6-10.3); Magnesium 1.8 mg/dL (1.6-2.6)
[2021-03-05] MEDS: *HR* Heparin 5,000 UNIT/ML VIAL SQ SCH (05:43)
[2021-03-05 07:12] VITALS: BP 146/89; PULSE 80; O2SAT 96
[2021-03-05] MEDS ORDERED: Metoprolol XL (24 HR) Succ 25 MG TAB.ER.24H PO SCH (09:00)
[2021-03-05] MEDS: Insulin LISPRO 300 UNITS/3 ML VIAL SUBQ SCH (09:28)
[2021-03-05] MEDS: ARIPiprazole 10 MG TABLET PO SCH (09:30)
[2021-03-05] MEDS: Aspirin 81 MG TAB.CHEW PO SCH (09:30)
[2021-03-05] MEDS: BuPROPion XL (24 HR) 150 MG TABLET PO SCH (09:30)
[2021-03-05] MEDS: Carbidopa/Levodopa 25/100 TABLET PO SCH (09:31)
[2021-03-05] MEDS: FLUoxetine 20 MG CAPSULE PO SCH (09:31)
[2021-03-05] MEDS: lisinopriL 10 MG TABLET PO SCH (09:31)
== END 2021-03-05 10:51 | disposition home health service (06) | DRG 175 ==
LOC: EMEROOARM 14:49 → 3BNU 14:49 → SUATTDRO 18:26 → 3BNU 18:52
PROVIDERS: ADMIT Pharmacist; ATTEND Internal Medicine